=== PATIENT | male | born 1955 | race Caucasian/White ===

== ENCOUNTER → 2016-07-30 | Outpatient (CLI) | payer BC ==
--- NOTE | 2016-07-30 14:14 | DIAGNOSTIC IMAGING REPORT ---
LEFT HIP 2 VIEWS CLINICAL HISTORY: Progressive left hip pain. FINDINGS: AP and frog-leg views of the left hip are compared to KUB dated 08/18/2010. The skeletal structures are well mineralized. No fracture is seen in the left hip or the imaged left hemipelvis. There is only mild degenerative joint space narrowing in the left hip. No significant bony sclerosis or subchondral cyst formation is seen. The overlying soft tissues are within normal limits. IMPRESSION: Minimal degenerative change is identified. No acute bony abnormality is seen involving the left hip. Electronically signed by: Eitan Loomis M.D. 07/30/2016 2:13 PM
--- NOTE | 2016-07-30 14:56 | DIAGNOSTIC IMAGING REPORT ---
LUMBAR SPINE 5 VIEWS CLINICAL HISTORY: Left leg pain. No reported history of trauma. FINDINGS: Five views of the lumbar spine are correlated with abdominal CT dated 09/07/2010. The skeletal structures appear well mineralized. There is no radiographic evidence of fracture or malalignment involving the lumbar spine. Vertebral body height is maintained. There is minimal retrolisthesis of L2-L3. Alignment is otherwise preserved. Anterior osteophytes are seen throughout. The transverse and spinous processes appear intact. There is no evidence of spondylolysis. Moderate to advanced facet arthropathy is seen in the mid to lower lumbar spine. There is advanced degenerative disc space narrowing at L5-S1 with associated bony sclerosis. There is moderate narrowing at L2-L3 with associated endplate sclerosis. Moderate narrowing is also seen at L4-L5. Only mild narrowing is seen at the remaining lumbar levels. Degenerative endplate sclerosis with disc space narrowing is also seen at T12-L1. Posterior disc osteophyte complexes are noted at L2-L3, L4-L5, and L5-S1. These may contribute to acquired compromise of the central canal. The visualized bony pelvis appears intact. Calcified phleboliths are noted in the pelvis. There is a nonobstructed abdominal bowel gas pattern noting moderate colonic fecal retention. IMPRESSION: 1. No acute bony abnormality is seen involving the lumbar spine. 2. Moderate lumbosacral spondylosis as detailed above. Dictated: 07/30/2016 2:13 PM Transcribed: 07/30/2016 2:55 PM [place] Electronically signed by: Eitan Loomis M.D. 07/30/2016 3:13 PM
== END | disposition home or self-care (01) ==
LOC: C.RDSM 13:09
PROVIDERS: ATTEND Family Medicine
DX: M25.552 Pain in left hip (principal)

== ENCOUNTER → 2017-04-19 | Outpatient (CLI) | payer BC ==
--- NOTE | 2017-04-19 15:32 | DIAGNOSTIC IMAGING REPORT ---
CT SINUSES WITH BRAIN LAB CT DOSE: 548.46 mGy.cm CLINICAL HISTORY: CHRONIC SINUSITIS,YUDY TECHNIQUE: Helical images were acquired in the transverse plane. Sagittal and coronal reformatted images were reviewed. A dose lowering technique was utilized adhering to the principles of ALARA. COMPARISON STUDY: None. FINDINGS: No orbital lesions are visualized. There is no hydrocephalus. The visualized portions of the mastoid air cells appear symmetrically aerated. The middle ears cavities appear symmetrically aerated. There is trace mucosal thickening within the base of the left maxillary sinus. There is an 18 mm retention cyst within the right maxillary sinus. There is trace mucosal thickening within the right frontal sinus posteriorly. The ostiomeatal units are patent bilaterally. There is a small bony defect involving the medial wall the left maxilla sinus. Please correlate with any history of prior surgery. There is nasal septal deviation to the left. The ethmoidal notches are protected bilaterally. The olfactory grooves measure 4 mm in depth. The frontoethmoidal recesses are patent bilaterally IMPRESSION: 1. No evidence of acute sinusitis 2. 18 mm right maxilla sinus retention cyst 3. The ostiomeatal units appear patent bilaterally. There is a bony defect involving the medial wall the left maxillary antrum. Please correlate with any history of prior surgery. Electronically signed by: Vitor Bradford M.D. 04/19/2017 3:31 PM Dictated Date/Time: 04/19/2017 3:27 PM
== END | disposition home or self-care (01) ==
LOC: C.CTS 15:10
PROVIDERS: ATTEND Otolaryngology
DX: J32.9 Chronic sinusitis, unspecified (principal); G47.33 Obstructive sleep apnea (adult) (pediatric); J34.1 Cyst and mucocele of nose and nasal sinus

== ENCOUNTER → 2017-05-20 | Outpatient (CLI) | payer BC ==
[2017-05-20 12:46] LABS: ESTIMATED AVERAGE GLUCOSE 252 mg/dl; HA1C FLAG Normal (Normal)
[2017-05-20 12:59] LABS: ALT/SGPT 60 U/L (12-78); AST/SGOT 57 U/L (15-37); BLOOD UREA NITROGEN 14 mg/dl (7-18); BUN/CREATININE RATIO 12.9 (10-20); CALCIUM 8.6 mg/dl (8.5-10.1); CARBON DIOXIDE 25 mmol/L (21-32); CHLORIDE 103 mmol/L (98-107); CREATININE 1.07 mg/dl (0.60-1.40); GLUCOSE 328 mg/dl (70-99); POTASSIUM 3.7 mmol/L (3.5-5.1); SODIUM 137 mmol/L (136-145)
[2017-05-20 13:06] LABS: ALB/GLOB RATIO 1.2 (0.9-2); ALKALINE PHOSPHATASE 100 U/L (45-117); CHOLESTEROL 114 mg/dl (0-200); CHOLESTEROL/HDL RATIO 3.7; HDL CHOLESTEROL 31 mg/dl; TRIGLYCERIDES 404 mg/dl (0-150)
[2017-05-20 13:13] LABS: BETA-HYDROXYBUTYRATE 3.16 mg/dL (0.2-2.81)
[2017-05-20 14:16] LABS: RATIO 9.3 mcg/mg (0-30.0)
== END | disposition home or self-care (01) ==
LOC: C.LABPBG 10:16
PROVIDERS: ATTEND Nurse Practitioner Adult Health
DX: E11.65 Type 2 diabetes mellitus with hyperglycemia (principal)

== ENCOUNTER 2018-11-25 08:17 | Inpatient (IN) ==
--- NOTE | 2018-10-29 08:52 | Anesthesiology Consultation ---
Date of Service October 29, 2018 Assessment & Plan (1) Encounter for pre-operative examination: Check K+ AM DOS (3.2 on pre-op labs) Chart Review Chart Review: Acceptable Risk for Surgery and Patient seen in Pre Admission Testing Teaching & Discussion Instructed NPO after midnight before surgery, except medications with 15 cc of water. Medication instructions provided according to the PAT guidelines. History Surgery Operation Date: 11/25/18 07:00 Proposed Procedures p Right Total Knee Replacement - Skip Jackson MD Height/Weight Height: 5 ft 8 in Weight: 122.4 kg Allergies Allergy/AdvReac Type Severity Reaction Status Date / Time Sulfa (Sulfonamide Allergy Unknown ACHY AND Verified 10/20/18 08:19 Antibiotics) COLD SYMPTOMS Medications Home Medications Medication Instructions Recorded Confirmed Last Taken amlodipine 5 mg PO HS 10/20/18 10/20/18 10/19/18 aspirin [Aspir-81] 81 mg PO DAILY 10/20/18 10/20/18 Unknown atorvastatin 80 mg PO PM 10/20/18 10/20/18 10/19/18 cholecalciferol (vitamin D3) 1 - 2 cap PO DAILY 10/20/18 10/20/18 Unknown [Vitamin D3] coenzyme Q10 [CoQ-10] 200 mg PO HS 10/20/18 10/20/18 10/19/18 escitalopram oxalate 10 mg PO QAM 10/20/18 10/20/18 10/20/18 insulin aspart U-100 [Novolog 1 dose SUBCUT TID 10/20/18 10/20/18 Unknown Flexpen U-100 Insulin] insulin glargine U-300 conc 70 unit SUBCUT BID 10/20/18 10/20/18 10/20/18 [Toujeo SoloStar U-300 Insulin] krill oil 1 cap PO BID 10/20/18 10/20/18 10/20/18 metformin 1,000 mg PO BID 10/20/18 10/20/18 10/20/18 naproxen sodium [Aleve] 1 cap PO BID 10/20/18 10/20/18 Unknown olmesartan-hydrochlorothiazide 1 tab PO QAM 10/20/18 10/20/18 10/20/18 pantoprazole 20 mg PO QAM 10/20/18 10/20/18 10/20/18 propranolol 60 mg PO HS 10/20/18 10/20/18 10/19/18 vitamin B complex [B-Complex] 1 tab PO DAILY 10/20/18 10/20/18 Unknown Past Medical History Medical History Diabetes A1C 9.9% Essential tremor History of anxiety History of kidney stones X1 IN HX Hyperlipidemia Hypertension Sleep apnea CPAP Past Family History Family History Other Family history of colon cancer in father Past Surgical History Surgical History History of colonoscopy History of lithotripsy History of lumbar discectomy X3 Past Anesthesia History No Hx of Anesthesia Complications and No Family Hx of Anesthesia Complications History of PONV No Motion Sickness Screening History of Motion Sickness: No Social History Smoking Status: Former smoker tobacco type: cigarettes Do You Dip or Chew Tobacco: No Smoking End Date: QUIT 40 YRS AGO Hx Alcohol Use: Yes Alcohol type: beer alcohol intake frequency: holidays/special occasions only Hx Substance Use: No substance use type: does not use Exercise / Class Metabolic Activity II 4-5 Yardwork/Stairs/Walk up hill (denies CP or SOB with stairs) Review of Systems Pt denies any recent chest pain, shortness of breath, palpitations, cough, fever or URI. Physical Exam Vital Signs BP: 136/75 P: 70bpm SPO2: 95% RA T: 98.6 F R: 16 ENMT Mouth: + dentures (partial upper) and + small oral opening; no chipped teeth and no loose teeth Thyromental Distance: > or= 3.5 Finger Breadths (4) Mallampati Class: IV Neck + short neck and + thick neck; neck extension not limited Respiratory normal respiratory effort Auscultation: lungs clear to auscultation bilaterally Cardiovascular Rate/Rhythm: regular rate and regular rhythm Heart Sounds: no murmur Vessels: no carotid bruit Extremities: no edema Testing Electrocardiogram Date: 10/29/18 Findings: + NSR @ (66) Nonspecific TWA. Chest X-Ray Date: 10/29/18 Findings: + NAD Laboratory Results 10/29/18 09:16 10/29/18 09:16 Blood Type O Positive 10/29/18 09:16 Antibody Screen NEGATIVE 10/29/18 09:16 PT 11.4 Seconds (9.0-12.0) 10/29/18 09:16 INR 1.1 (0.9-1.1) 10/29/18 09:16 APTT 25.1 Seconds (21.0-31.0) 10/29/18 09:16 Hemoglobin A1c 9.9 % (4.5-5.6) H 10/29/18 09:16 *Surgeon made aware of elevated A1C
--- NOTE | 2018-10-29 08:54 | PAT Medication Instructions ---
Medication Instructions Date of Service October 29, 2018 Home Medications amlodipine 5 mg PO HS aspirin [Aspir-81] 81 mg PO DAILY atorvastatin 80 mg PO PM cholecalciferol (vitamin D3) 1 - 2 cap PO DAILY coenzyme Q10 [CoQ-10] 200 mg PO HS escitalopram oxalate 10 mg PO QAM insulin aspart U-100 [Novolog] 1 dose SUBCUT TID insulin glargine [Toujeo SoloStar U-300 Insulin] 70 unit SUBCUT BID krill oil 1 cap PO BID metformin 1,000 mg PO BID naproxen sodium [Aleve] 1 cap PO BID olmesartan-hydrochlorothiazide 1 tab PO QAM pantoprazole 20 mg PO QAM propranolol 60 mg PO HS vitamin B complex [B-Complex] 1 tab PO DAILY ASK your surgeon for instructions naproxen sodium [Aleve] 1 cap PO BID STOP taking 2 weeks before surgery coenzyme Q10 [CoQ-10] 200 mg PO HS krill oil 1 cap PO BID DO NOT take the morning of surgery cholecalciferol (vitamin D3) 1 - 2 cap PO DAILY insulin aspart U-100 [Novolog] 1 dose SUBCUT TID metformin 1,000 mg PO BID olmesartan-hydrochlorothiazide 1 tab PO QAM vitamin B complex [B-Complex] 1 tab PO DAILY Take morning of surgery With a small sip of water, OTHERWISE NOTHING TO EAT OR DRINK AFTER MIDNIGHT: escitalopram oxalate 10 mg PO QAM pantoprazole 20 mg PO QAM Take evening before surgery aspirin [Aspir-81] 81 mg PO DAILY amlodipine 5 mg PO HS atorvastatin 80 mg PO PM insulin aspart U-100 [Novolog] 1 dose SUBCUT TID insulin glargine [Toujeo SoloStar U-300 Insulin] 70 unit SUBCUT BID metformin 1,000 mg PO BID propranolol 60 mg PO HS Insulin Dependent Diabetic Patients * Test your blood sugar the morning of surgery * If Blood Sugar is GREATER THAN 150, take HALF of your regular dose of: insulin glargine [Toujeo SoloStar U-300 Insulin] -- TAKE 35 UNITS * If Blood Sugar is LESS THAN 150, DO NOT TAKE ANY: insulin glargine [Toujeo SoloStar U-300 Insulin] Other Notes If you have any questions please call us at [phone] or [phone] or [phone] or [phone]
--- NOTE | 2018-10-29 09:55 | XRay Report ---
TWO VIEW CHEST CLINICAL HISTORY: Preoperative examination. FINDINGS: PA and lateral chest radiographs are compared to study dated 01/01/2006 and correlated with c hest CT dated 02/02/2014. The cardiomediastinal silhouette is unremarkable. The lungs and pleural spac es are clear. There is no pneumothorax. The bony thorax appears intact. IMPRESSION: No active disease in the chest. Electronically signed by: Eitan Loomis M.D. 10/29/2018 9:53 AM
[2018-10-29 10:29] LABS: Basophils # (auto) 0.03 K/uL (0-0.2); Basophils % (auto) 0.5 %; Eosinophils # (auto) 0.12 K/uL (0-0.5); Eosinophils % (auto) 2.1 %; Hemoglobin 13.5 g/dL (14.0-18.0); Immature Granulocytes # (auto) 0.01 K/uL (0.00-0.02); Immature Granulocytes % (auto) 0.2 %; Mean Corpuscular Hgb Conc 33.8 g/dL (32-36); Mean Corpuscular Volume 80.2 fL (80-100); Monocytes # (auto) 0.25 K/uL (0.11-0.59); Monocytes % (auto) 4.3 %; Neutrophils # (auto) 3.18 K/uL (1.4-6.5); Neutrophils % (auto) 54.9 %; Platelet Count 189 K/uL (130-400); RDW Coefficient of Variation 14.7 % (11.5-14.5); RDW Standard Deviation 42.6 fL (36.4-46.3); Red Blood Count 4.99 M/uL (4.7-6.1); White Blood Count 5.79 K/uL (4.8-10.8)
[2018-10-29 10:40] LABS: INR 1.1 (0.9-1.1); Partial Thromboplastin Ratio 0.9; Partial Thromboplastin Time 25.1 Seconds (21.0-31.0); Prothrombin Time 11.4 Seconds (9.0-12.0)
[2018-10-29 10:43] LABS: BUN Creatinine Ratio 14.9 (10-20); Calcium 8.8 mg/dl (8.5-10.1); Creatinine Clr Calc Pharmacy 111.8 ml/min; Est GFR (African American) 106.7; Est GFR (Non-African American) 92.1; Potassium 3.2 mmol/L (3.5-5.1)
[2018-10-29 10:52] LABS: Estimated Average Glucose 237 mg/dl; Hemoglobin A1C 9.9 % (4.5-5.6)
--- NOTE | 2018-11-22 10:30 | History and Physical Report ---
DATE OF ADMISSION: 11/25/2018 CHIEF COMPLAINT: Bilateral knee pain, right side greater than left. HISTORY OF PRESENT ILLNESS: A 63-year-old gentleman who I have been following for the past year for bilateral knee pain, DJD. He has been a patient of Dr. Morel in the past and had multiple injections over the years. It has become less successful over the past year. The right knee bothers him more than the left. He takes anti-inflammatories with minimal relief. The shots only helped him for a couple days to a week or so recently. He has become more debilitated by his pain. He has a limited walking tolerance of a couple blocks. He has difficulty going up and down stairs. Knees hurt all the time. The more he walks, the more he hurts and limps. He would like to proceed with surgical treatment. PAST MEDICAL HISTORY: 1. Diabetes x15 years, currently under medical optimization for his diabetes. 2. Hypertension. 3. Elevated cholesterol. 4. Sleep apnea with CPAP machine. 5. Obesity with a BMI of 41. 6. Low back pain. 7. Kidney stones. PAST SURGICAL HISTORY: Previous surgeries include lumbar discectomy x3. ALLERGIES: SULFA. CURRENT MEDICINES: Include: 1. Atorvastatin. 2. Escitalopram. 3. Losartan. 4. Metformin. 5. Victoza. 6. NovoLog insulin. 7. Buspirone. 8. Toujeo. SOCIAL HISTORY: A 63-year-old male. He is . Two children. Rare alcohol intake. No tobacco or drug use. FAMILY HISTORY: Noncontributory. REVIEW OF SYSTEMS: Significant for diabetes which has been pretty poorly controlled. He is currently trying to get this under better control with his medical doctor. Denies any chest pain or shortness of breath. No history of DVT or PE. PHYSICAL EXAMINATION: GENERAL: Reveals a pleasant, fairly large middle-aged male. Looks to be in pretty good health. HEENT: Benign. NECK: Supple. No lymphadenopathy. LUNGS: Clear to auscultation. HEART: Has a regular rate and rhythm. ABDOMEN: Soft, nontender, nondistended. EXTREMITIES: Grossly neurovascularly intact except as follows: Examination of both knees reveals the patient ambulates independently. He has got varus alignment to both knees. He has got moderate sized knee joint effusions. Range of motion is pretty symmetric on both sides with about 5-10 degrees short of full extension to 120 degrees of flexion. He has got no instability. No pain with hip motion on either side. X-RAYS: X-rays of both knees were reviewed. It shows advanced bilateral knee DJD. X-rays of the right knee reveal complete loss of his medial joint space. He has got tibial femoral subluxation. He has got tricompartment disease with significant patellofemoral disease as well as patellofemoral maltracking. ASSESSMENT: A 63-year-old male diabetic with bilateral knee degenerative joint disease, unresponsive to conservative care. The right knee is bothered more than the left. He would like to proceed with knee replacement. He is diabetic and currently trying to get his diabetes under better control. PLAN: We are going to proceed with right knee replacement. The risks and benefits of this procedure were explained to the patient including but not limited to DVT, PE, , infection, neurological injury, vascular injury, bleeding problem, pain, limited range of motion, stiffness, failure to relieve symptoms, incomplete relief of symptoms, need for further surgery in future, fracture, leg length inequality, nerve palsy, etc. The patient understands and desires to proceed. Informed consent was obtained. He is made aware that with his diabetes, he is at slightly increased risk of infection. As far as discharge plans, he is planning to be discharged to home using the home health program. He knows to hold his metformin the morning of surgery and to bring his CPAP machine to the hospital.
[~2018-11-25 08:17] MED LIST: ACETAMINOPHEN 500 MG TAB PO SCH; BUPIVACAINE 0.5 % 5 MG/1 ML PF 10ML VIAL ONE; BUPIVACAINE LIPOSOME/PF 266 MG, BUPIVACAINE/EPINEPHRINE 50 ML, SODIUM CHLORIDE 0.9% 30 ... INFIL SCH; CEFAZOLIN 3000MG 65 ML IV SCH; GABAPENTIN 300 MG x 2 PO SCH; LR 500ML BOLUS, THEN 15ML/HR IV SCH; LR 60ML/HR IV SCH; METOCLOPRAMIDE HCL 10 MG TABLET PO SCH; ROPIVACAINE 0.5% 5 MG/ML 30 ML VIAL ONE; SCOPOLAMINE 1.5 MG TDSY TD SCH; TRANEXAMIC ACID 1,000 MG **IV Intra-op IV SCH
--- OUTSIDE RECORDS SUMMARY | 2018-11-25 08:20 | External Medical Summary | Continuity of Care Document ---
:1955 Author Name Razia Gonzales, Provider Address Unavailable Unavailable , Care Team Providers Name Role Phone Silverio Minda SILVA Unavailable [email or web address] [email or web address] Saleh M.D. Unavailable [email or web address] Suman IYER Unavailable Unavailable Unavailable Unavailable Unavailable Problems Vocal cord paralysis (478.30) (J38.00) Laryngopharyngeal reflux (478.79) (K21.9) Laryngospasm (478.75) (J38.5) Dry nose (478.19) (J34.89) Epistaxis (784.7) (R04.0) Elevated transaminase level (790.4) (R74.0) Knee pain (719.46) (M25.569) Hypertrophy of nasal turbinates (478.0) (J34.3) Depression (311) (F32.9) Dyslipidemia (272.4) (E78.5) Essential hypertension (401.9) (I10) Obesity, morbid, BMI 40.0-49.9 (278.01) (E66.01) Uncontrolled type 2 diabetes mellitus, w ith long-term current use of insulin (250.02) (E11.65) Low back pain (724.2) (M54.5) Acquired deviated nasal septum (470) (J34.2) 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 Refills: 0 Olmesartan Medoxomil-HCTZ 40-25 MG Oral Tablet; TAKE 1 TABLET DAILY. SilverioRICARDO Quantity: 90 Refills: 3 metFORMIN HCl - 1000 MG Oral Tablet; Take 1 tablet twice isabela ly Refills: 0 CoQ-10 CAPS; TAKE 1 CAPSULE DAILY WITH A MEAL. Refills: 0 Aspirin 81 MG TABS; Take 1 tablet daily Refills: 0 Victoza 18 MG/3ML Subcutaneous Solution Pen-injector; Inject 1.8 mg/day SilverioRICARDO Start: 04-Jan-2014 Quantity: 1 3 x 3 ML Pen Refills: 11 Vitamin B-12 1000 MCG Oral Tablet; TAKE 1 TABLET DAILY DIRECTED. RICARDO Sawyer Start: 04-Jan-2014 Quantity: 30 Refills: 5 Vitamin D 1000 UNIT Oral Tablet; take 10 00 IU in the summer and 2000 IU in the winter RICARDO Sawyer Start: 08-Feb-2014 Quantity: 1 Refills: 0 Renaldo Microlet Lancets; Test 4 times daily SilverioRICARDO Start: 15-Mar-2014 Quantity: 4 100 Miscellaneous Pa ckage Refills: 3 UltiCare Micro Pen Tea 32G X 4 MM; use 4 daily wit h insulin injections RICARDO Sawyer Start: 24-Jan-2015 Quantity: 4 90 Unit Box Refills: 3 NovoLOG FlexPen 100 UNIT/ML Subcutaneous Solution Pen-injector; Inject 20 units prior to breakfast and lunch, and 30 units at supper RICARDO Sawyer Start: 22-Mar-2015 Quantity: 5 5 x 3 ML Pen Refills: 1 Omeprazole 20 MG Oral Capsule Delayed Release; TAKE 1 CAPSUL E Daily Refills: 1 OneTouch Delica Lancets Fine; use 4 daily SilverioRICARDO maddox Start: 24-Nov-2018 Quantity: 4 100 Unit Box Refills: 3 Toujeo Max SoloStar 300 UNIT/ML Subcutan eous Solution Pen-injector; INJECT 74 UNITS TWICE A DAY RICARDO Sawyer Start: 01-Jul-2018 Quantity: 8 2 x 3 ML Pen Refills: 3 Gabapentin 100 MG Oral Capsule; TAKE 2 CAPSULE 3 times daily Janet Dillon Start: 11-Apr-2017 Quantity: 180 Refills: 5 amLODIPine Besylate 5 MG Oral Tablet; TAKE 1 TABLET DAILY. Refills: 0 Propranolol HCl ER 60 MG Oral Capsule Ex tended Release 24 Hour; TAKE 1 CAPSULE Bedtime Janet Dillon Start: 21-Apr-2018 Quantity: 30 Refills: 5 OneTouch Verio In Vitro Strip; Test 4 times daily Latrell Sawyer Start: 02-Mar-2016 Quantity: 4 100 Strip Box Refills: 3 [place]-3 Krill Oil 500 MG Oral Capsule; TAKE 2 CAPSULE Daily Refills: 0 Procedures History of Renal Lithotripsy Status: Com pleted History of Total Disc Arthroplasty Statu s: Completed Immunizations Pneumococcal polysaccharide vaccine, 23 valent On: 2003 Influenza On: 19-Apr-2011 Influenza On: 13-Jun-2012 9:27 Lot #: [id number], [employer] Influenza On: May-2013 Influenza On: 29-May-2015 Family History Father Family history of Colon Cancer (V16.0) Status: Active Mother Family history of Diabetes Mellitus (V18.0) Status: Active Family history of Macular Degeneration Status: Active Social History - Smoking Status Former smoker Plan of Treatment Planned Encounters Appointment; Minda Sawyer CRNP Start: 13-Jan-2019 11:30 R equest Planned Observations Planned Goals not documented Results No Known Results Results not documented Encounters Appointment; Titi Dillon M.D. 20-Oct-2018 13:00 Encounter Diagnosis: Problem not documented Appointment; Titi Dillon M.D. 21-Apr-2018 10:15 Encounter Diagnosis: Problem not documented Appointment; Trinh Knight R.D. 24-Oct-2017 8:00 Encounter Diagnosis: Problem not documented Appointment; Trinh Knight R.D. 10-Oct-2017 12:30 Encounter Diagnosis: Problem not documented Appointment; Minda Sawyer CRNP 24-Sep-2017 10:30 Encounter Diagnosis: Problem not documented Appointment; Trinh Knight R.D. 15-Jul-2017 8:00 Encounter Diagnosis: Problem not documented Appointment; Titi Dillon M.D. 04-Jul-2017 10:00 Encounter Diagnosis: Problem not documented Appointment; Trinh Knight R.D. 06-Jun-2017 13:00 Encounter Diagnosis: Problem not documented Appointment; Minda Sawyer CRNP 28-May-2017 12:00 Encounter Diagnosis: Problem not documented Appointment; Titi Dillon M.D. 27-Mar-2017 13:00 Encounter Diagnosis: Problem not documented Appointment; Lavelle Adamson M.D. 11-Mar-2017 10:20 Encounter Diagnosis: Problem not documented Appointment; Curtis Valerio Au.D.|CCC-A 11-Mar-2017 10:00 Encounter Diagnosis: Problem not documented Appointment; Minda Sawyer CRNP 13-Jan-2019 11:30 Encounter Diagnosis: Problem not documented"
--- NOTE | 2018-11-25 09:06 | History & Physical Bridge Note ---
Date of Service November 25, 2018 History & Physical Bridge Note I have examined the patient, reviewed the History & Physical and in the interval since the performance of the History & Physical I have noted the following changes of clinical significance: no changes noted
[2018-11-25] MEDS ORDERED: ATROPINE SULFATE 0.1 MG/ML 10ML SYR IV PRN (09:21)
[2018-11-25] MEDS ORDERED: fentaNYL citrate 100 MCG/2 ML VIAL IV PRN (09:21)
[2018-11-25] MEDS ORDERED: ePHEDrine sulfate 50 MG/ML AMP IV PRN (09:21)
[2018-11-25] MEDS ORDERED: ONDANSETRON INJ 2 MG/ML 2 ML VIAL IV PRN ×2 (09:21→14:15)
[2018-11-25] MEDS ORDERED: MIDAZOLAM HCL 1 MG/ML 2ML VIAL ONE (10:21)
[2018-11-25] MEDS ORDERED: fentaNYL citrate 100 MCG/2 ML VIAL ONE (10:21)
[2018-11-25] MEDS ORDERED: LIDOCAINE HCL 2% 2 ML VIAL/AMP(20MG/ML) INFIL ONE (10:22)
[2018-11-25] MEDS ORDERED: PROPOFOL IV EMULSION 10 MG/ML 20 ML VIAL IV ONE (10:22)
[2018-11-25 10:30] LABS: BUN Creatinine Ratio 15.2 (10-20); Calcium 8.7 mg/dl (8.5-10.1); Creatinine Clr Calc Pharmacy 98.1 ml/min; Est GFR (African American) 97.7; Est GFR (Non-African American) 84.3; Potassium 3.7 mmol/L (3.5-5.1)
[2018-11-25] MEDS ORDERED: SODIUM CHLORIDE 0.9% PF 50 ML VIAL ONE (10:52)
[2018-11-25] MEDS ORDERED: BUPIVACAINE 0.25% 30 ML VIAL ONE (10:53)
[2018-11-25] MEDS ORDERED: BACITRACIN INJ 50,000 UNIT VIAL ONE (10:53)
[2018-11-25] MEDS ORDERED: BUPIVACAINE LIPOSOME 1.3% 266 MG/20 ML VIAL ONE (10:53)
[2018-11-25] MEDS ORDERED: EPINEPHrine INJ 1 MG/ML AMP ONE (10:53)
--- NOTE | 2018-11-25 12:57 | Post Operative Brief Note ---
Immediate Post Op Note v1 Date of Surgery November 25, 2018 Pre & Post Diagnosis Operation Date: 11/25/18 10:40 Pre-Op Diagnosis: Right Knee Advanced Degenerative Joint Disease Post-Op Diagnosis: Right Knee Advanced Degenerative Joint Disease Procedure Operation Date: 11/25/18 10:40 Actual Procedures p Right Total Knee Arthroplasty(Right) - Skip Jackson MD Surgeon Skip Jackson MD Inventory Specialist Dorian, PAC Estimated Blood Loss 50 Findings Consistent with Post-Op Diagnosis Fluids 1400 cc Specimens Right Knee Drains Thomas Catheter (A 15 Citizen [place] thomas catheter was inserted by SACHIN Cox, without difficulty, clear yellow urine obtained, output to be monitored by Anesthesia.) Anesthesia Type Spinal MAC Complications none Disposition Accompanied Patient To Recovery: No Disposition: Recovery Room
--- NOTE | 2018-11-25 13:16 | XRay Report ---
RIGHT KNEE 2 VIEWS History: Right total knee arthroplasty. Degenerative arthritis. Postop. FINDINGS: The patient is status post a right total knee arthroplasty. The hardware is intact. No frac ture or dislocation. Skin yaz and surgical drains are in place. IMPRESSION: Right total knee arthroplasty. No evidence for hardware complication. Electronically signed by: Peña Samayoa M.D. 11/25/2018 1:15 PM
--- NOTE | 2018-11-25 13:52 | Anesthesiology Progress Note ---
Date of Service November 25, 2018 Anesthesia Post Procedure Vital Signs Vital Signs: Temp Pulse Pulse Resp BP Pulse Ox 11/25/18 13:40 61 20 134/67 97 11/25/18 13:30 62 19 129/69 97 11/25/18 13:20 63 19 137/66 98 11/25/18 13:10 67 19 131/67 100 11/25/18 13:01 36.6 C 63 16 140/64 98 11/25/18 09:10 36.9 C 64 20 135/77 96 Pain Intensity Right Knee: Pain Intensity: 0 Left Knee: Pain Intensity: 8 Transfer of Care Handoff Completed per policy Notes Mental Status: alert / awake / arousable Patient Amnestic to Procedure: Yes Nausea / Vomiting: adequately controlled Pain: adequately controlled Airway Patency, RR, SpO2: stable & adequate BP & HR: stable & adequate Hydration State: stable & adequate Neuraxial Anesthesia: was administered and sensory block is resolving Anesthetic Complications: no major complications apparent and Pt Satisfied with anesthetic care
[2018-11-25] MEDS ORDERED: GLUCOSE 40% GEL 15 GM TUBE PO PRN (14:15)
[2018-11-25] MEDS ORDERED: NALOXONE HCL 0.4 MG/1 ML VIAL/CARP IV PRN (14:15)
[2018-11-25] MEDS ORDERED: CARBOHYDRATES FOR HYPOGLYCEMIA PO PRN (14:15)
[2018-11-25] MEDS ORDERED: METOCLOPRAMIDE HCL INJ 5 MG/ML 2 ML VIAL IV PRN (14:15)
[2018-11-25] MEDS ORDERED: ALUMINUM/MAGNESIUM SUSP 30 ML UDC PO PRN (14:15)
[2018-11-25] MEDS ORDERED: GLUCAGON FOR INJ 1 MG VIAL SQ PRN (14:15)
[2018-11-25] MEDS ORDERED: BISACODYL 10 MG SUPP PR PRN (14:15)
[2018-11-25] MEDS ORDERED: TAMSULOSIN HCL 0.4 MG CAP PO PRN (14:15)
[2018-11-25] MEDS ORDERED: PHARMACY GLYCEMIC MGMT CONSULT STA (14:15)
[2018-11-25] MEDS ORDERED: INSULIN ASPART 100 UNITS/ML 3 ML PEN SQ SCH (14:15)
[2018-11-25] MEDS ORDERED: HYDROmorphone INJ 0.5 MG/0.5 ML SYR IV PRN (14:15)
[2018-11-25] MEDS ORDERED: MAGNESIUM HYDROXIDE SUSP 30 ML UDC PO PRN (14:15)
[2018-11-25] MEDS ORDERED: DEXTROSE 50% 50 ML SYRINGE IV PRN (14:15)
[2018-11-25] MEDS ORDERED: GLUCOSE 10 TABS/TUBE PO PRN (14:15)
[2018-11-25] MEDS ORDERED: PHARMACY GLYCEMIC MGMT CONSULT PRN (15:01)
[2018-11-25] MEDS: SODIUM CHLORIDE 0.9% 1000ML 1,000 ML IV SCH (15:10)
[2018-11-25] MEDS: ACETAMINOPHEN 500 MG TAB PO SCH ×2 (15:10→22:14)
[2018-11-25] MEDS ORDERED: INSULIN GLARGINE SOLOSTAR 100 UNITS/ML 3 ML PEN SC ONE (15:15)
--- NOTE | 2018-11-25 15:31 | Pharmacy Report ---
Pharmacy Glycemic Short Note 2 - Date of Service November 25, 2018 - Glycemic Short BSG Results (Last 24 hours): 11/25/18 11/25/18 11/25/18 08:32 08:52 14:35 Glucose 192 H POC Glucose 191 H 143 H OUTPATIENT ANTIDIABETIC REGIMEN: * Toujeo u-300 70 units BID * Metformin 1000mg BID * Novolog 20 units TID + scale HbA1c: 9.9% on 10/29/18 ASSESSMENT: * Patient with reasonable post op BSG of 143 mg/dL. I confirmed with patient that the last dose of toujeo and metformin he took was last evening. It does not appear the patient was given any steroids in the OR. Given this, and good post op BSG, will order a one time lantus dose now at 80% of the patient's home dose (for toujeo conversion) and a scale for this evening. I will used a weight based stress of 2 for novolog coverage. The patient is ordered a diet. PLAN FOR INPATIENT GLYCEMIC CONTROL: * Hold outpatient oral diabetes medications * Basal insulin * Lantus 56 units SQ X 1 (~1515) * Lantus scale this evening (2300): 55 units if BSG 150 mg/dL or less; 70 units if BSG > 150 mg/dL * Bolus insulin * NovoLog per scale ACHS or Q6hrs while NPO * Goal Range: Low 110 mg/dL - High 140 mg/dL * Correction Factor: 20 mg/dL/unit * Nutritional / Prandial insulin per carb ratio of 1 unit per 7 grams CHO consumed PLAN FOR DISCHARGE: * Pending
[2018-11-25] MEDS: CHECK SCOPOLAMINE PATCH PLACEMENT SCH (15:32)
--- NOTE | 2018-11-25 15:42 | Progress Note ---
DATE: 11/25/2018 SUBJECTIVE: A 63-year-old gentleman postop from a right knee replacement. He is doing well. Cannot feel his legs yet. Denies any chest pain or shortness of breath. Not feeling dizzy or lightheaded. OBJECTIVE: VITAL SIGNS: Temperature is 36.8. Vital signs stable. GENERAL: Physical examination shows a pleasant, middle-aged male. He is sitting up in his bed and talking to his spouse. He looks quite comfortable. LUNGS: Clear to auscultation. HEART: Has regular rate and rhythm. ABDOMEN: Soft, nontender, nondistended. EXTREMITIES: Grossly neurovascularly intact except as follows: Examination of both lower extremities reveals the legs to be well aligned. His dressing is clean, dry, and intact. He has no significant sensory or motor function yet. He does have brisk refill with good distal pulse. X-RAYS: X-ray of the right knee from recovery room reviewed. It shows right cemented posterior stabilized total knee arthroplasty. The film is fairly rotated on both the AP and lateral films. No obvious signs of problems. ASSESSMENT: A 63-year-old gentleman postop from a right knee replacement, doing pretty well. His block is still in effect. PLAN: 1. DVT prophylaxis including thigh-high TEDs, SCDs, and aspirin twice a day. 2. PT/OT. Weight bear as tolerated. Right total knee protocol. 3. Pain control. Doing well with current pain regimen. We will obviously have to address and adjust the medicines as his spinal wears off. 4. IV antibiotics x24 hours. 5. Diabetes. Will use insulin sliding scale coverage in the hospital. 6. Disposition: He is planning to be discharged to home with some home health once adequately recovered.
--- NOTE | 2018-11-25 17:02 | Operative Report ---
DATE OF OPERATION: 11/25/2018 SURGEON: Skip Jackson MD PLANT CHANGER: SACHIN Viera PREOPERATIVE DIAGNOSIS: Right knee degenerative joint disease. POSTOPERATIVE DIAGNOSIS: Right knee degenerative joint disease. PROCEDURE PERFORMED: Right cemented posterior stabilized total knee arthroplasty. COMPLICATIONS: None. ESTIMATED BLOOD LOSS: 50 mL. FLUID REPLACEMENT: 1400 mL crystalloid fluid replacement. ANESTHESIA: Spinal with adductor canal block. DRAINS: None. SPECIMENS: Right knee sent for pathology. TOURNIQUET TIME: 64 minutes at 300 mmHg. OPERATIVE INDICATIONS: The patient is a 63-year-old gentleman who has had a long history of bilateral knee pain and discomfort, right side a bit worse than the left. He has been through extensive conservative treatment in the past. He continues to be debilitated by pain. X-rays showed bilateral knee degenerative joint disease, right side a bit worse than the left. He elected to proceed with total knee arthroplasty on the right side. OPERATIVE FINDINGS: Operative findings revealed extensive grade 4 [id number] disease in all 3 compartments, most severe in the medial and patellofemoral compartments. He had osteophytes in all 3 compartments with a large knee joint effusion. He had a 10-degree flexion contracture. OPERATIVE IMPLANTS: Operative implants consisted of: 1. A Biomet Vanguard size 70 right posterior stabilized femoral component. 2. A Biomet size 75 tibial tray. 3. A 10 mm posterior stabilized polyethylene insert. 4. A 34 x 8.5 all poly patella. OPERATIVE PROCEDURE: The patient was taken to the operating room, identified and placed on the operating table in supine position. All contact areas were appropriately padded. IV antibiotics were provided by anesthesia team. A spinal anesthetic and adductor canal block had been provided in the holding area. Mckeon catheter was placed in sterile fashion. A right thigh tourniquet was then placed and the right lower extremity was then prepped and draped in usual sterile fashion. The right leg was elevated and exsanguinated with Esmarch and tourniquet was placed at 300 mmHg. An anterior approach of the right knee was then performed through a longitudinal incision centered over the patella. Sharp dissection was carried through the subcutaneous tissue down to the level of the extensor mechanism. A medial parapatellar arthrotomy incision was made. Some subperiosteal dissection was carried out medially. The fat pad was resected from beneath the patellar tendon. The lateral patellofemoral ligament was released. The patella was everted and knee was flexed. The osteophytes were taken off the distal femur. The ACL and PCL were then released from the distal femur. The tibia subluxated anteriorly. The external tibial alignment jig was then placed in the anterior face of the tibia and adjusted 16 mm medially. Proximal tibial cut was made to remove about a millimeter or 2 of bone from the medial side. Some osteophytes were taken off medial and posteromedially. Tibia was sized to size 75. Attention was then drawn to the femur. The distal femur was entered with a sharp drill bit. Intramedullary canal was suctioned. A right 6-degree valgus cutting guide was placed. Distal femoral cutting block was pinned in place. Distal femoral cut was made to take an additional 3 mm of bone off the distal femur. Femur was then sized to a size 70. It was sized exactly to a size 70. The AP cutting block was pinned parallel to the epicondylar axis, which was 3 degrees of external rotation. The anterior cut, anterior chamfer, posterior cut, posterior chamfer cuts were made. Box cutting guide was placed and adjusted slightly lateral and the box cut was made. The knee was flexed. The remnants of medial and lateral menisci were excised. The osteophytes were taken off the posterior aspect of the femur. Trial femoral component was placed. Tibial tray was pinned in maximum external rotation and drill and stem punch were used to create defect in the proximal tibia for the tibial tray. The knee was then trialed and the 10 mm insert fit most appropriately. Attention was then drawn to the patella. The patella was cleaned of all soft tissues. Patella thickness measured 23 mm in thickness, it was cut down to 14. It was sized to a size 34 patella. Lug holes were drilled for a 34 patella. Lateral osteophyte was removed. Patella button was placed. Knee was taken through range of motion and the patella tracked nicely with no thumbs test. Attention was then drawn toward placing the permanent components. All trial components were removed. Bone plug was placed in the distal femur to limit blood loss. A double batch of Palacos G cement was mixed. A Biomet Vanguard size 70 right posterior stabilized femoral component, size 75 tibial tray, 10 mm posterior stabilized polyethylene insert, and a 34 x 8.5 all poly patella then cemented in place. Knee was brought down to full extension until cement hardened. A final cement check was then performed. Pericapsular tissues were injected with a total of 100 mL of combination of 20 mL of Exparel, 30 mL of normal saline, 50 mL of 0.25% Marcaine with epinephrine. The patient did receive 1 gram of tranexamic acid. The tourniquet was then let down for a final tourniquet time of 64 minutes. Hemostasis was assured with use of electrocautery. Extensor mechanism was then closed with a combination of #1 PDS suture and #1 Vicryl suture in [id number] fashion. Extensor mechanism was checked and found to be intact. The subcutaneous tissues were then closed with #2 Dexon suture in a buried interrupted fashion. Skin was closed with skin yaz. Leg was then cleaned and dried and a sterile dressing with Xeroform, 4 x 4, sterile cast padding and Allan bandage were applied. The patient then transferred to the recovery room in stable condition. The patient tolerated the procedure well with no complication. All needle and sponge counts were correct at the end of the operation. I attest to the content of the Intraoperative Record and any orders documented therein. Any exception s are noted below.
[2018-11-25] MEDS: FERROUS GLUCONATE 324 MG TAB PO SCH (18:03)
[2018-11-25] MEDS: KETOROLAC 30 MG/ML VIAL IV SCH (18:03)
[2018-11-25] MEDS: ASCORBIC ACID 500 MG TAB PO SCH (18:03)
[2018-11-25] MEDS: INSULIN ASPART 100 UNITS/ML 3 ML PEN SC SCH ×2 (18:10→21:37)
[2018-11-25] MEDS ORDERED: TRANEXAMIC ACID 1,000 MG in 0.9 % SODIUM CHLORIDE 100 ML IV SCH (19:00)
[2018-11-25] MEDS: CEFAZOLIN 2000MG 2,000 MG/15 ML SYR IV SCH (20:00)
[2018-11-25] MEDS ORDERED: INSULIN GLARGINE U U SQ SCH (21:00)
[2018-11-25] MEDS ORDERED: NON-FORMULARY MEDICATION (Coenzyme Q10 [Coq-10] 200 MG) PO SCH (21:00)
[2018-11-25] MEDS: OXYCODONE HCL IR 5 MG TAB (IMMEDIATE RELEASE) PO PRN (21:10)
[2018-11-25] MEDS: AMLODIPINE BESYLATE 5 MG TAB PO SCH (21:36)
[2018-11-25] MEDS: ASPIRIN 81 MG ECTAB PO SCH (21:36)
[2018-11-25] MEDS: DOCUSATE SODIUM 100 MG CAP PO SCH (21:36)
[2018-11-25] MEDS: PROPRANOLOL HCL 20 MG TAB PO SCH (21:36)
[2018-11-25] MEDS: TAPENTADOL HCL ER 50 MG TABCR PO SCH (21:37)
[2018-11-25] MEDS: ATORVASTATIN 40 MG TAB PO SCH (21:37)
[2018-11-25] MEDS: SENNA 8.6 MG TAB PO SCH (21:37)
[2018-11-25] MEDS ORDERED: INSULIN GLARGINE SOLOSTAR 100 UNITS/ML 3 ML PEN SC SCH (23:00)
[2018-11-26] MEDS: KETOROLAC 30 MG/ML VIAL IV SCH ×5 (00:26→23:35)
[2018-11-26] MEDS: CHECK SCOPOLAMINE PATCH PLACEMENT SCH (00:27)
[2018-11-26] MEDS ORDERED: INSULIN ASPART 100 UNITS/ML 3 ML PEN SC SCH (02:00)
[2018-11-26] MEDS: CEFAZOLIN 2000MG 2,000 MG/15 ML SYR IV SCH (04:55)
[2018-11-26 05:46] LABS: Hematocrit (blood only) 33.4 % (42-52); Hemoglobin 11.5 g/dL (14.0-18.0); Mean Corpuscular Hgb Conc 34.4 g/dL (32-36); Mean Corpuscular Volume 79.7 fL (80-100); Mean Platelet Volume 9.9 fL (7.4-10.4); Platelet Count 165 K/uL (130-400); RDW Coefficient of Variation 14.7 % (11.5-14.5); Red Blood Count 4.19 M/uL (4.7-6.1); White Blood Count 6.43 K/uL (4.8-10.8)
[2018-11-26] MEDS: ACETAMINOPHEN 500 MG TAB PO SCH ×3 (05:49→21:49)
[2018-11-26 06:16] LABS: Creatinine Clr Calc Pharmacy 94.1 ml/min; Est GFR (African American) 92.9; Est GFR (Non-African American) 80.2; Potassium 3.4 mmol/L (3.5-5.1)
[2018-11-26] MEDS ORDERED: POTASSIUM CHLORIDE 20 MEQ TABCR PO ONE ×2 (07:06→18:08)
[2018-11-26] MEDS: OXYCODONE HCL IR 5 MG TAB (IMMEDIATE RELEASE) PO PRN ×2 (08:00→12:00)
[2018-11-26] MEDS: FERROUS GLUCONATE 324 MG TAB PO SCH ×2 (08:32→17:49)
[2018-11-26] MEDS: ASPIRIN 81 MG ECTAB PO SCH ×2 (08:33→21:34)
[2018-11-26] MEDS: DOCUSATE SODIUM 100 MG CAP PO SCH ×2 (08:33→21:33)
[2018-11-26] MEDS: ASCORBIC ACID 500 MG TAB PO SCH ×2 (08:33→17:49)
[2018-11-26] MEDS: OLMESARTAN MEDOXOMIL 40 MG TAB PO SCH (08:33)
[2018-11-26] MEDS: PANTOprazole 40 MG TAB PO SCH (08:34)
[2018-11-26] MEDS: VITAMIN B COMPLEX TAB PO SCH (08:34)
[2018-11-26] MEDS: MULTIVITAMIN TAB PO SCH (08:34)
[2018-11-26] MEDS: ESCITALOPRAM OXALATE 10 MG TAB PO SCH (08:34)
[2018-11-26] MEDS: hydroCHLOROthiazide 25 MG TAB PO SCH (08:34)
[2018-11-26] MEDS: INSULIN ASPART 100 UNITS/ML 3 ML PEN SC SCH ×4 (08:39→21:39)
[2018-11-26] MEDS ORDERED: NON-FORMULARY MEDICATION (Olmesartan-Hydrochlorothiazide 1 TAB) PO SCH (09:00)
[2018-11-26] MEDS: TAPENTADOL HCL ER 50 MG TABCR PO SCH ×2 (09:02→21:48)
[2018-11-26] MEDS: INSULIN GLARGINE SOLOSTAR 100 UNITS/ML 3 ML PEN SC SCH ×2 (09:41→21:39)
--- NOTE | 2018-11-26 09:54 | Progress Note ---
DATE: 11/26/2018 SUBJECTIVE: A 63-year-old gentleman postop day 1 from a right knee replacement. He is doing pretty well. Pain has been controlled. Therapy has gone well. No chest pain or shortness of breath. Not feeling dizzy or lightheaded. OBJECTIVE: VITAL SIGNS: Temperature 37.2. Vital signs stable. GENERAL: Physical examination reveals a healthy, pleasant, middle-aged male. He is sitting up in his bedside chair and looks pretty comfortable. EXTREMITIES: Examination of the right leg reveals the dressing to be in place. There is no drainage. He can dorsiflex and plantarflex his foot appropriately. He can do a straight leg raise. LABORATORY DATA: Hemoglobin is 11.5, hematocrit 33.4. Electrolytes reveal potassium of 3.4. ASSESSMENT: A 63-year-old gentleman postop day 1 from right knee replacement, doing pretty well. Potassium is a little bit low. His pain is controlled. He is neurologically intact. PLAN: 1. DVT prophylaxis including thigh-high TEDs, SCDs, and aspirin twice a day. 2. PT/OT. Weight bear as tolerated. Right total knee protocol. 3. Pain control, doing well with current pain regimen. 4. Hypokalemia. Will supplement his potassium today and recheck it tomorrow. 5. Disposition: Plan to discharge to home with some home health once adequately recovered.
--- NOTE | 2018-11-26 10:13 | Anesthesiology Progress Note ---
Date of Service November 26, 2018 Anesthesia Post Procedure Vital Signs Vital Signs: Temp Pulse Pulse Pulse Resp BP Pulse Ox 11/26/18 07:34 37.2 C 70 18 133/74 95 11/26/18 02:05 37.8 C H 73 16 138/72 96 11/25/18 22:37 37.3 C 64 17 148/73 H 97 11/25/18 21:20 65 146/76 H 96 11/25/18 20:20 37.1 C 71 18 132/71 95 11/25/18 17:10 36.7 C 56 L 16 143/74 H 96 11/25/18 16:14 36.8 C 58 L 16 150/77 H 98 11/25/18 14:24 36.8 C 61 16 137/70 95 11/25/18 14:05 37 C 66 18 138/67 94 11/25/18 13:50 37.0 C 61 21 140/62 97 11/25/18 13:40 61 20 134/67 97 11/25/18 13:30 62 19 129/69 97 11/25/18 13:20 63 19 137/66 98 11/25/18 13:10 67 19 131/67 100 11/25/18 13:01 36.6 C 63 16 140/64 98 Pain Intensity Right Knee: Pain Intensity: 6 Left Knee: Pain Intensity: 8 Notes Mental Status: alert / awake / arousable and participated in evaluation Patient Amnestic to Procedure: Yes Nausea / Vomiting: adequately controlled Pain: adequately controlled Airway Patency, RR, SpO2: stable & adequate BP & HR: stable & adequate Hydration State: stable & adequate Neuraxial Anesthesia: was administered and sensory block resolved Anesthetic Complications: no major complications apparent
--- NOTE | 2018-11-26 10:51 | Pharmacy Report ---
Pharmacy Glycemic Short Note 2 - Date of Service November 26, 2018 - Glycemic Short BSG Results (Last 24 hours): 11/25/18 11/25/18 11/25/18 14:35 17:19 20:58 Glucose POC Glucose 143 H 126 H 139 H 11/26/18 11/26/18 11/26/18 02:07 05:24 08:20 Glucose 116 H POC Glucose 130 H 127 H OUTPATIENT ANTIDIABETIC REGIMEN: * Toujeo u-300 70 units BID * Metformin 1000mg BID * Novolog 20 units TID + scale HbA1c: 9.9% on 10/29/18 ASSESSMENT: * POD#1 s/p L knee replacement * BSGs in goal range but on the lower end of the range. * Goal is to maintain BSGs <200 mg/dl (ideally <150 mg/dl) to prevent post op infectious complications * Pt is on Sq basal bolus insulin regimen as an outpatient. Inpatient dosing is less than outpatient dosing most likely d/t carb controlled diet in house * AM fasting BSG above goal range at 127 mg/dl --> This is in goal range but suspect current dosing may still be higher than needed in house. Will slightly reduce dosing to prevent low tomorrow * Post-prandial BSGs in goal range. No changes needed to CF/CR at this time. PLAN FOR INPATIENT GLYCEMIC CONTROL: * Hold outpatient oral diabetes medications * Basal insulin: reduce dosing slightly * Lantus 50 units SQ BID * Bolus insulin: no change * NovoLog per scale ACHS or Q6hrs while NPO * Goal Range: Low 110 mg/dL - High 140 mg/dL * Correction Factor: 20 mg/dL/unit * Nutritional / Prandial insulin per carb ratio of 1 unit per 7 grams CHO consumed PLAN FOR DISCHARGE: * A1c is above goal range at 9.9%. Pt will need to work with outpatient provider to titrate insulin doses for tighter outpatient control. Pt will need f/u appt for A1c >9%
[2018-11-26] MEDS: AMLODIPINE BESYLATE 5 MG TAB PO SCH (21:32)
[2018-11-26] MEDS: ATORVASTATIN 40 MG TAB PO SCH (21:33)
[2018-11-26] MEDS: SENNA 8.6 MG TAB PO SCH (21:34)
[2018-11-26] MEDS: PROPRANOLOL HCL 20 MG TAB PO SCH (21:34)
[2018-11-27] MEDS: SODIUM CHLORIDE 0.9% 1000ML 1,000 ML IV SCH (02:27)
[2018-11-27] MEDS: KETOROLAC 30 MG/ML VIAL IV SCH (05:59)
[2018-11-27] MEDS: ACETAMINOPHEN 500 MG TAB PO SCH (05:59)
[2018-11-27] MEDS: INSULIN ASPART 100 UNITS/ML 3 ML PEN SC SCH (07:28)
[2018-11-27] MEDS: INSULIN GLARGINE SOLOSTAR 100 UNITS/ML 3 ML PEN SC SCH (07:29)
[2018-11-27] MEDS: ASPIRIN 81 MG ECTAB PO SCH (07:33)
[2018-11-27] MEDS: FERROUS GLUCONATE 324 MG TAB PO SCH (07:33)
[2018-11-27] MEDS: ASCORBIC ACID 500 MG TAB PO SCH (07:33)
[2018-11-27] MEDS: ESCITALOPRAM OXALATE 10 MG TAB PO SCH (07:33)
[2018-11-27] MEDS: PANTOprazole 40 MG TAB PO SCH (07:33)
[2018-11-27] MEDS: TAPENTADOL HCL ER 50 MG TABCR PO SCH (07:33)
[2018-11-27] MEDS: VITAMIN B COMPLEX TAB PO SCH (07:33)
[2018-11-27] MEDS: hydroCHLOROthiazide 25 MG TAB PO SCH (07:34)
[2018-11-27] MEDS: MULTIVITAMIN TAB PO SCH (07:34)
[2018-11-27] MEDS: OLMESARTAN MEDOXOMIL 40 MG TAB PO SCH (07:34)
[2018-11-27] MEDS: DOCUSATE SODIUM 100 MG CAP PO SCH (07:34)
--- NOTE | 2018-11-27 08:22 | Progress Note ---
DATE: 11/27/2018 SUBJECTIVE: A 63-year-old gentleman postop day 2 from right knee replacement. He is doing pretty well. Pain is controlled. No chest pain or shortness of breath. Not feeling dizzy or lightheaded. OBJECTIVE: VITAL SIGNS: Temperature 37.5. Vital signs stable. GENERAL: Physical examination shows a pleasant, middle-aged male. He is sitting up in his bedside chair and looks comfortable. EXTREMITIES: Examination of the right leg reveals the dressing to be clean, dry and intact. Maybe just a trace bit of bloody drainage. His calf is soft and supple. He is neurologically intact. ASSESSMENT: A 63-year-old gentleman postop day 2 from right knee replacement, doing pretty well. Pain is controlled. PLAN: 1. DVT prophylaxis including thigh-high TEDs, SCDs, and aspirin twice a day. 2. PT/OT. Weight bear as tolerated. Right total knee protocol. 3. Pain control, doing pretty well with current pain regimen. 4. Disposition: Plan to discharge to home with some home health later today.
--- NOTE | 2018-12-02 18:09 | Discharge Summary ---
ADMITTING PHYSICIAN AND SURGEON: Dr. Skip Jackson. ADMITTING DIAGNOSIS: Right knee degenerative joint disease. SURGERY PERFORMED: Right total knee arthroplasty. SECONDARY DIAGNOSES: Diabetes, hypertension, elevated cholesterol, sleep apnea, obesity, low back pain, kidney stones. CONSULTS: None obtained. HISTORY AND PHYSICAL EXAMINATION: Well documented in patient's chart. HOSPITAL COURSE: The patient was admitted on 11/25/2018 underwent total knee arthroplasty, tolerated the procedure well. There were no complications. He was transferred to the PACU postoperatively and later to the orthopedic floor for further care. He was given Ancef for antibiotic prophylaxis, ÓSCAR stockings, SCDs and aspirin for DVT prophylaxis. Hemoglobin, hematocrit and vital signs were monitored during his hospital stay and remained stable. He did not require any blood transfusions. There were no complications. By postoperative day 2, he was tolerating a diabetic diet. Pain was controlled with oral pain medicine. He was participating in physical therapy. On postop day 2, he was discharged home, set up with home health services, given printed discharge instructions including new prescriptions for extra strength Tylenol, aspirin and oxycodone. Continue his home medications, continue physical therapy, weightbearing as tolerated, ÓSCAR stockings. Follow up in approximately 2 weeks postoperatively or sooner if there are any problems or concerns.
== END 2018-11-27 12:06 | disposition home health service (06) | DRG 470 ==
LOC: ASU 08:17 → 3E 13:02

== ENCOUNTER 2019-02-24 06:31 | Inpatient (IN) ==
[2019-02-12 13:11] LABS: INR 1.1 (0.9-1.1); Partial Thromboplastin Ratio 0.9; Partial Thromboplastin Time 25.4 Seconds (21.0-31.0); Prothrombin Time 11.4 Seconds (9.0-12.0)
[2019-02-12 14:22] LABS: Basophils # (auto) 0.03 K/uL (0-0.2); Basophils % (auto) 0.4 %; Eosinophils # (auto) 0.11 K/uL (0-0.5); Eosinophils % (auto) 1.6 %; Hematocrit (blood only) 37.3 % (42-52); Hemoglobin 12.5 g/dL (14.0-18.0); Immature Granulocytes # (auto) 0.01 K/uL (0.00-0.02); Immature Granulocytes % (auto) 0.1 %; Lymphocytes # (auto) 2.31 K/uL (1.2-3.4); Lymphocytes % (auto) 34.1 %; Mean Corpuscular Hgb Conc 33.5 g/dL (32-36); Mean Corpuscular Volume 80.9 fL (80-100); Mean Platelet Volume 10.4 fL (7.4-10.4); Monocytes # (auto) 0.37 K/uL (0.11-0.59); Monocytes % (auto) 5.5 %; Neutrophils # (auto) 3.95 K/uL (1.4-6.5); Neutrophils % (auto) 58.3 %; Platelet Count 227 K/uL (130-400); RDW Coefficient of Variation 15.2 % (11.5-14.5); RDW Standard Deviation 44.5 fL (36.4-46.3); Red Blood Count 4.61 M/uL (4.7-6.1); White Blood Count 6.78 K/uL (4.8-10.8)
[2019-02-12 16:29] LABS: BUN Creatinine Ratio 16.9 (10-20); Blood Urea Nitrogen 14 mg/dl (7-18); C Reactive Protein < 0.29 mg/dl (0-0.29); Calcium 8.7 mg/dl (8.5-10.1); Carbon Dioxide 27 mmol/L (21-32); Chloride 106 mmol/L (98-107); Creatinine Clr Calc Pharmacy 111.2 ml/min; Est GFR (African American) 108.3; Est GFR (Non-African American) 93.5; Glucose 160 mg/dl (70-99); Potassium 3.8 mmol/L (3.5-5.1); Sodium 140 mmol/L (136-145)
--- NOTE | 2019-02-14 16:25 | History and Physical Report ---
DATE OF ADMISSION: 02/24/2019 CHIEF COMPLAINT: Persistent left knee pain and discomfort. HISTORY OF PRESENT ILLNESS: A 63-year-old gentleman now about 3 months out from right knee replacement, presents for surgical treatment of his left knee. He has got a long history of knee pain and discomfort followed by Dr. Fields in the past. He has had multiple injections, which have become less successful over time. He underwent a right knee replacement just about 3 months ago and has done well from this. It continues to be limited by left knee pain and discomfort. The more he walks, the more it hurts. He has nighttime pain. He would like to proceed with surgical treatment of his left knee. PAST MEDICAL HISTORY: Significant for: 1. Diabetes x15 years. 2. Hypertension. 3. Elevated cholesterol. 4. Sleep apnea with CPAP machine. 5. Obesity, BMI 38. 6. Low back pain. 7. Kidney stones. PAST SURGICAL HISTORY: Previous surgeries include: 1. Lumbar discectomy x3. 2. Right knee replaced on 11/25/2018. ALLERGIES: SULFA. CURRENT MEDICINES: Include: 1. Atorvastatin. 2. Citalopram. 3. Losartan. 4. Metformin. 5. Victoza. 6. NovoLog insulin. 7. Buspirone. 8. Toujeo. SOCIAL HISTORY: A 63-year-old male. He is . Two children. Rare alcohol intake. FAMILY HISTORY: Noncontributory. REVIEW OF SYSTEMS: Significant for diabetes. Denies any chest pain or shortness of breath. No history of DVT or PE. No known bleeding problems. PHYSICAL EXAMINATION: GENERAL: Healthy, pleasant middle-aged male. Looks to be in good health. HEENT: Benign. NECK: Soft. No lymphadenopathy. LUNGS: Clear to auscultation. HEART: Regular rate and rhythm. ABDOMEN: Soft, nontender, nondistended. EXTREMITIES: Grossly neurovascularly intact except as follows. Examination of the left knee reveals the patient who ambulates independently. He has got varus alignment to his knee. Small knee effusion. He is tender over the medial joint line. Range of motion is 5 degrees short of full extension to 120 degrees of flexion. There is no instability. Examination of the right knee reveals well-healed incision. Mild residual swelling. Range of motion 0-115. Good straight leg raise. X-RAYS: X-rays of the left knee reviewed. Shows advanced left knee DJD. He has got near complete loss of his medial joint space. Little bit of tibial femoral subluxation. He has got subchondral sclerosis. ASSESSMENT: A 63-year-old diabetic about 3 months out from a right knee replacement with a left knee degenerative joint disease. He has failed conservative treatment and would like to have his left knee replaced. PLAN: We are going to take him to the Operating Room and do a left total knee replacement. The risks and benefits of this procedure were explained to the patient including but not limited to DVT, PE, , infection, neurological injury, vascular injury, bleeding problem, pain, limited range of motion, stiffness, failure to relieve symptoms, incomplete relief of symptoms, need for further surgery in the future, fracture, leg length inequality, nerve palsy, persistent pain, etc. The patient understands and desires to proceed. Informed consent was obtained. We did talk to him about holding his metformin the morning of surgery. Bring his CPAP machine to the hospital. He is planning to be discharged home using [facility].
--- NOTE | 2019-02-17 10:37 | Anesthesiology Consultation ---
Date of Service February 17, 2019 Assessment & Plan (1) Encounter for pre-operative examination: Check BSG AM DOS Chart Review Chart Review: Acceptable Risk for Surgery and Patient NOT seen in Pre Admission Testing History Surgery Operation Date: 02/24/19 07:00 Proposed Procedures p Left Total Knee Arthroplasty - Skip Jackson MD Height/Weight Height: 5 ft 8 in Weight: 113.398 kg Allergies Allergy/AdvReac Type Severity Reaction Status Date / Time Sulfa (Sulfonamide AdvReac Unknown ACHY AND Verified 01/23/19 14:08 Antibiotics) COLD SYMPTOMS potassium AdvReac ACHY AND Verified 01/23/19 14:12 COLD AND FEVER Medications Home Medications Medication Instructions Recorded Confirmed Last Taken Novolog Flexpen U-100 Insulin 1 dose SUBCUT TID 10/20/18 01/23/19 11/24/18 17:00 Toujeo SoloStar U-300 Insulin 70 unit SUBCUT BID 10/20/18 01/23/19 11/24/18 17:00 amlodipine 5 mg PO HS 10/20/18 01/23/19 11/24/18 21:00 aspirin [Aspir-81] 81 mg PO QPM 10/20/18 01/23/19 11/24/18 21:00 atorvastatin 80 mg PO PM 10/20/18 01/23/19 11/24/18 21:00 cholecalciferol (vitamin D3) 1 - 2 cap PO QAM 10/20/18 01/23/19 11/24/18 08:00 [Vitamin D3] coenzyme Q10 [CoQ-10] 200 mg PO HS 10/20/18 01/23/19 11/24/18 08:00 escitalopram oxalate 10 mg PO QAM 10/20/18 01/23/19 11/24/18 21:00 krill oil 1 cap PO BID 10/20/18 01/23/19 11/24/18 08:00 metformin 1,000 mg PO BID 10/20/18 01/23/19 11/24/18 21:00 naproxen sodium [Aleve] 1 cap PO BID 10/20/18 01/23/19 11/04/18 olmesartan-hydrochlorothiazide 1 tab PO QAM 10/20/18 01/23/19 11/24/18 08:00 pantoprazole 20 mg PO QAM 10/20/18 01/23/19 11/25/18 06:30 propranolol 60 mg PO HS 10/20/18 01/23/19 11/24/18 21:00 vitamin B complex [B-Complex] 1 tab PO QAM 10/20/18 01/23/19 11/24/18 08:00 Past Medical History Medical History Diabetes IDDM Essential tremor GERD (gastroesophageal reflux disease) History of anxiety History of kidney stones Hyperlipidemia Hypertension Sleep apnea CPAP Past Family History Family History Other Family history of colon cancer in father Past Surgical History Surgical History History of colonoscopy History of lithotripsy History of lumbar discectomy X3 History of right knee joint replacement 11/25/18: SAB x 1 at L4-L5 + PNB at [facility] Social History Smoking Status: Former smoker tobacco type: cigarettes Do You Dip or Chew Tobacco: No Smoking End Date: 40 YR AGO Hx Alcohol Use: Yes Alcohol type: beer alcohol intake frequency: holidays/special occasions only Hx Substance Use: No substance use type: does not use Testing Laboratory Results 02/12/19 12:30 02/12/19 12:30 PT 11.4 Seconds (9.0-12.0) 02/12/19 12:30 INR 1.1 (0.9-1.1) 02/12/19 12:30 APTT 25.4 Seconds (21.0-31.0) 02/12/19 12:30 Blood Type O Positive 02/12/19 12:32 Antibody Screen NEGATIVE 02/12/19 12:32 Hgba1c: 10/29/18: 9.9% (surgeon aware) Electrocardiogram Date: 10/29/18 Findings: + NSR @ (66) Nonspecific TWA. Chest X-Ray Date: 10/29/18 Findings: + NAD
[~2019-02-24 06:31] MED LIST changes: -BUPIVACAINE 0.5 % 5 MG/1 ML PF 10ML VIAL ONE; +CEFAZOLIN 2000MG 2,000 MG/15 ML SYR IV SCH; -CEFAZOLIN 3000MG 65 ML IV SCH; +FAMOTIDINE 20 MG TAB PO SCH; +GABAPENTIN 300 MG CAP PO SCH; -GABAPENTIN 300 MG x 2 PO SCH; -ROPIVACAINE 0.5% 5 MG/ML 30 ML VIAL ONE
--- NOTE | 2019-02-24 06:49 | History & Physical Bridge Note ---
Date of Service February 24, 2019 History & Physical Bridge Note I have examined the patient, reviewed the History & Physical and in the interval since the performance of the History & Physical I have noted the following changes of clinical significance: no changes noted
[2019-02-24] MEDS ORDERED: BUPIVACAINE/EPINEPHRINE 0.25% 1:200,000 30 ML VIAL ONE (07:01)
[2019-02-24] MEDS ORDERED: BUPIVACAINE 0.5 % 5 MG/1 ML PF 10ML VIAL ONE (07:01)
[2019-02-24] MEDS ORDERED: DEXAMETHASONE SOD INJ 4 MG/ML VIAL ONE (07:01)
[2019-02-24] MEDS ORDERED: fentaNYL citrate 100 MCG/2 ML VIAL ONE (07:20)
[2019-02-24] MEDS ORDERED: MIDAZOLAM HCL 1 MG/ML 2ML VIAL ONE ×2 (07:20)
[2019-02-24] MEDS ORDERED: fentaNYL citrate 100 MCG/2 ML VIAL IV PRN (08:18)
[2019-02-24] MEDS ORDERED: ONDANSETRON INJ 2 MG/ML 2 ML VIAL IV PRN ×2 (08:18→12:13)
[2019-02-24] MEDS ORDERED: ATROPINE SULFATE 0.1 MG/ML 10ML SYR IV PRN (08:18)
[2019-02-24] MEDS ORDERED: ePHEDrine sulfate 50 MG/ML AMP IV PRN (08:18)
[2019-02-24] MEDS ORDERED: BUPIVACAINE LIPOSOME 1.3% 266 MG/20 ML VIAL ONE (08:47)
[2019-02-24] MEDS ORDERED: SODIUM CHLORIDE 0.9% PF 50 ML VIAL ONE (08:47)
[2019-02-24] MEDS ORDERED: BACITRACIN INJ 50,000 UNIT VIAL ONE (08:47)
[2019-02-24] MEDS ORDERED: EPINEPHrine INJ 1 MG/ML AMP ONE (08:48)
[2019-02-24] MEDS ORDERED: BUPIVACAINE 0.25% 30 ML VIAL ONE (08:48)
--- NOTE | 2019-02-24 11:14 | Post Operative Brief Note ---
Immediate Post Op Note v1 Date of Surgery February 24, 2019 Pre & Post Diagnosis Operation Date: 02/24/19 08:50 Pre-Op Diagnosis: LEFT KNEE DEGENERATIVE JOINT DISEASE Post-Op Diagnosis: LEFT KNEE DEGENERATIVE JOINT DISEASE Procedure Operation Date: 02/24/19 08:50 Actual Procedures p Left Total Knee Arthroplasty, Cemented(Left) - Skip Jackson MD Surgeon Skip Jackson MD Scanner Supervisor Isaias, PAC Estimated Blood Loss 50 Findings Consistent with Post-Op Diagnosis Fluids 800 cc Specimens Left Knee Anesthesia Type Spinal MAC Complications none Disposition Accompanied Patient To Recovery: Yes Disposition: Recovery Room
--- NOTE | 2019-02-24 11:48 | Anesthesiology Progress Note ---
Date of Service February 24, 2019 Anesthesia Post Procedure Vital Signs Vital Signs: Temp Pulse Pulse Resp BP Pulse Ox 02/24/19 11:45 37.3 C 61 16 137/71 98 02/24/19 11:35 67 18 135/72 94 02/24/19 11:25 67 24 131/73 95 02/24/19 11:15 37.0 C 68 13 130/70 94 02/24/19 07:20 36.9 C 66 18 143/76 H 96 Transfer of Care Handoff Completed per policy Notes Mental Status: alert / awake / arousable Patient Amnestic to Procedure: Yes Nausea / Vomiting: adequately controlled Pain: adequately controlled Airway Patency, RR, SpO2: stable & adequate BP & HR: stable & adequate Hydration State: stable & adequate Neuraxial Anesthesia: was administered and sensory block is resolving Anesthetic Complications: no major complications apparent
--- NOTE | 2019-02-24 11:56 | XRay Report ---
XR knee LT 2V routine HISTORY: 63 years-old Male Surgical Post Op [knee total joint arthroplasty. History of degenerative joint disease COMPARISON: Left knee radiographs 02/16/2019 TECHNIQUE: 2 views of the left knee FINDINGS: Left knee total joint arthroplasty and patellar resurfacing. Expected postsurgical soft tissue swelli ng and deep tissue air with anterior midline skin yaz and surgical drainage catheter. Satisfactor y alignment without acute fracture or retained foreign body. IMPRESSION: Left knee total joint arthroplasty and patella resurfacing demonstrates satisfactory alig nment. The above report was generated using voice recognition software. It may contain grammatical, syntax o r spelling errors. Electronically signed by: Donnie Cote M.D. 02/24/2019 11:55 AM
[2019-02-24] MEDS ORDERED: GLUCAGON FOR INJ 1 MG VIAL SQ PRN (12:13)
[2019-02-24] MEDS ORDERED: GLUCOSE 10 TABS/TUBE PO PRN (12:13)
[2019-02-24] MEDS ORDERED: TAMSULOSIN HCL 0.4 MG CAP PO PRN (12:13)
[2019-02-24] MEDS ORDERED: SODIUM CHLORIDE 0.9% 1000ML 1,000 ML IV SCH (12:13)
[2019-02-24] MEDS ORDERED: PHARMACY GLYCEMIC MGMT CONSULT STA (12:13)
[2019-02-24] MEDS ORDERED: CARBOHYDRATES FOR HYPOGLYCEMIA PO PRN (12:13)
[2019-02-24] MEDS ORDERED: DEXTROSE 50% 50 ML SYRINGE IV PRN (12:13)
[2019-02-24] MEDS ORDERED: BISACODYL 10 MG SUPP PR PRN (12:13)
[2019-02-24] MEDS ORDERED: METOCLOPRAMIDE HCL INJ 5 MG/ML 2 ML VIAL IV PRN (12:13)
[2019-02-24] MEDS ORDERED: MAGNESIUM HYDROXIDE SUSP 30 ML UDC PO PRN (12:13)
[2019-02-24] MEDS ORDERED: HYDROmorphone INJ 0.5 MG/0.5 ML SYR IV PRN (12:13)
[2019-02-24] MEDS ORDERED: ALUMINUM/MAGNESIUM SUSP 30 ML UDC PO PRN (12:13)
[2019-02-24] MEDS ORDERED: GLUCOSE 40% GEL 15 GM TUBE PO PRN (12:13)
[2019-02-24] MEDS ORDERED: NALOXONE HCL 0.4 MG/1 ML VIAL/CARP IV PRN (12:13)
[2019-02-24] MEDS ORDERED: INSULIN GLARGINE 100 UNIT/ML VIAL SC STA (12:51)
[2019-02-24] MEDS ORDERED: PHARMACY GLYCEMIC MGMT CONSULT PRN (12:52)
[2019-02-24] MEDS: ACETAMINOPHEN 500 MG TAB PO SCH ×2 (13:48→21:04)
[2019-02-24] MEDS: KETOROLAC 30 MG/ML VIAL IV SCH ×2 (13:49→19:37)
[2019-02-24] MEDS: INSULIN ASPART 100 UNITS/ML VIAL SC SCH ×3 (13:55→20:56)
[2019-02-24] MEDS ORDERED: PNEUMOCOCCAL ADMINISTRATION CHARGE ONE (14:00)
[2019-02-24] MEDS ORDERED: PNEUMOCOCCAL POLYSACCHARIDES 25 MCG/0.5 ML VIAL/SYR IM ONE (14:00)
--- NOTE | 2019-02-24 14:26 | Pharmacy Report ---
Pharmacy Glycemic Short Note 2 - Date of Service February 24, 2019 - Glycemic Short BSG Results (Last 24 hours): 02/24/19 02/24/19 02/24/19 07:14 11:18 12:21 POC Glucose 248 H 296 H 282 H OUTPATIENT ANTIDIABETIC REGIMEN: * Toujeo 70 units SQ BID * Last dose: 02/23 @ 2100 * Novolog TID, per scale (~25 units?) * Metformin 1gm PO BID * HbA1c: 9.9% (10/29/18) -- updated A1c pending with AM labs ASSESSMENT: * Mr Navarrete is a 63yo diabetic male POD 0 s/p L TKA with Dr Jackson this morning. * Patient received 4mg of IV dexamethasone pre-op, which is expected to contribute to significant steroid-induced hyperglycemia. * Patient was ordered a Type 2 diet post-op and did eat some lunch upon admission after surgery. * Aggressive SQ insulin regimen initiated immediately post-op, given: BSGs already elevated, basal insulin deficit from missed dose this morning, and IV steroids given. PLAN FOR INPATIENT GLYCEMIC CONTROL: * Hold outpatient oral diabetes medications * Will resume tomorrow if patient is tolerating diet and renal function is appropriate. * Basal insulin * Lantus 100 units SQ upon arrival to unit post-op, then * Lantus per scale tonight: 40 units, if BSG less than 110 mg/dL 60 units, if BSG 110-200 mg/dL 80 units, if BSG greater than 200 mg/dL * Bolus insulin * NovoLog per scale ACHS, plus 0000 and 0400 tonight while IV steroids are still contributing to elevated BSGs * Goal Range: Low 110 mg/dL - High 150 mg/dL * Correction Factor: 10 mg/dL/unit * Nutritional / Prandial insulin per carb ratio of 1 unit per 4 grams CHO consumed PLAN FOR DISCHARGE: * pending A1c tomorrow
[2019-02-24] MEDS: CEFAZOLIN 2000MG 2,000 MG/15 ML SYR IV SCH ×2 (15:30→23:59)
[2019-02-24] MEDS: CHECK SCOPOLAMINE PATCH PLACEMENT SCH ×2 (15:30→23:59)
[2019-02-24] MEDS: FERROUS GLUCONATE 324 MG TAB PO SCH (16:29)
[2019-02-24] MEDS: ASCORBIC ACID 500 MG TAB PO SCH (16:29)
[2019-02-24] MEDS ORDERED: TRANEXAMIC ACID 1,000 MG in 0.9 % SODIUM CHLORIDE 100 ML IV SCH (17:00)
[2019-02-24] MEDS: SENNA 8.6 MG TAB PO SCH (20:57)
[2019-02-24] MEDS: DOCUSATE SODIUM 100 MG CAP PO SCH (20:58)
[2019-02-24] MEDS: PROPRANOLOL HCL 60 MG LA CAP PO SCH (20:58)
[2019-02-24] MEDS: AMLODIPINE BESYLATE 5 MG TAB PO SCH (20:58)
[2019-02-24] MEDS: ASPIRIN 81 MG ECTAB PO SCH (20:58)
[2019-02-24] MEDS: ATORVASTATIN 40 MG TAB PO SCH (20:58)
[2019-02-24] MEDS ORDERED: INSULIN GLARGINE U U SQ SCH (21:00)
[2019-02-24] MEDS ORDERED: NON-FORMULARY MEDICATION (Coenzyme Q10 [Coq-10] 200 MG) PO SCH (21:00)
[2019-02-24] MEDS ORDERED: INSULIN GLARGINE 100 UNIT/ML VIAL SC SCH (21:00)
[2019-02-25] MEDS: INSULIN ASPART 100 UNITS/ML VIAL SC SCH ×6 (00:08→20:54)
--- NOTE | 2019-02-25 00:55 | Operative Report ---
DATE OF OPERATION: 02/24/2019 DATE OF SURGERY: 02/24/2019 SURGEON: Skip Jackson MD [employer] CARETAKER: Titi Esparza PA-C. PREOPERATIVE DIAGNOSIS: Left knee degenerative joint disease. POSTOPERATIVE DIAGNOSIS: Left knee degenerative joint disease. PROCEDURE PERFORMED: Left cemented posterior stabilized total knee arthroplasty. COMPLICATIONS: None. ESTIMATED BLOOD LOSS: 50 mL. FLUID REPLACEMENT: 800 mL crystalloid fluid replacement. TOURNIQUET TIME: 72 minutes at 300 mmHg. ANESTHESIA: Spinal with adductor canal block. DRAINS: None. SPECIMENS: Left knee sent for pathology. OPERATIVE INDICATIONS: The patient is a 63-year-old gentleman who has had a long history of bilateral knee pain and discomfort, treated conservatively over the past several years. His symptoms become less responsive to conservative care. He underwent a right knee replacement earlier this year and has done quite well from this. He elected to proceed with left total knee arthroplasty. OPERATIVE FINDINGS: Operative findings revealed advanced left knee DJD, primarily involving the medial and patellofemoral compartments with grade 4 changes in both areas. He had a large knee joint effusion with varus alignment to his knee and a 10 degree flexion contracture. He had osteophytes in the medial compartment. OPERATIVE IMPLANTS: Operative implants consisted of: 1. Biomet Vanguard size 70 left posterior stabilized femoral component. 2. A Biomet size 75 tibial tray. 3. A 10 mm posterior stabilized polyethylene insert. 4. A 34 x 8.5 all poly patella. OPERATIVE PROCEDURE: The patient taken to the operating room, identified and placed on the operating table in supine position. All contact areas were appropriately padded. IV antibiotics provided by anesthesia team. A spinal anesthetic and adductor canal block had been provided in the holding area. Mckeon catheter was placed in sterile fashion. A left thigh tourniquet was then placed. The left lower extremity was then prepped and draped in the usual sterile fashion. Left leg was elevated and exsanguinated with an Esmarch and tourniquet was placed at 300 mmHg. An anterior approach of the left knee was then performed through a longitudinal incision centered over the patella. Sharp dissection was carried through subcutaneous tissue down to the level of the extensor mechanism. Medial parapatellar arthrotomy incision was made. Some subperiosteal dissection was carried out medially. The fat pad resected from beneath the patellar tendon. There was quite a bit of scarring in the fat pad to the patella tendon. The lateral patellofemoral ligament was released. The patella was everted and knee was flexed. The osteophytes were taken off the distal femur. The ACL and PCL were then released from the distal femur and the tibia subluxated anteriorly. The external tibial alignment jig was then placed in the anterior face of the tibia and adjusted about 14 mm medially. Proximal tibial cut was made to remove about 2-3 mm of bone from the most deficient aspect of the medial tibial plateau. The tourniquet was then sized to a size 75. The AP cutting tension was then drawn to the femur. The distal femur was entered with a sharp drill. Intramedullary canal was suctioned. A left 6-degree valgus cutting guide was placed. Distal femoral cutting block was pinned in place. Distal femoral cut was made to take an additional 3 mm of bone off the distal femur. The femur was then sized to a size 70. We sized almost exactly 70. The AP cutting block was pinned parallel to the epicondylar axis, which was 5 degrees of external rotation. The anterior cut, anterior chamfer, posterior cut, posterior chamfer cuts were made. Box cutting guide was placed and adjusted slightly lateral and the box cut was made. The knee was flexed. The remnants of the medial and lateral menisci were excised. The osteophytes were taken off the posterior aspect of the femur. Trial femoral component was placed. Tibial tray was pinned in maximum external rotation and the drill and stem punch were used to create defect in proximal tibia for the tibial tray. The knee was then trialed and the 10 mm insert fit most appropriately. Attention was then drawn to the patella. The patella was cleaned of all soft tissues. Patella thickness measured 22 mm in thickness, was cut down to 14. It was sized to a size 34 patella. Lug holes were drilled for a 34 patella. Lateral osteophyte was removed. Patella button was placed. Knee was taken through range of motion, patella tracked nicely with no thumbs test. Attention was then turned toward placement of permanent components. All trial components were removed. Bone plug was placed in the distal femur to limit blood loss. A double batch of Palacos G cement was mixed. A BiomGet Satisfaction Vanguard size 70 left posterior stabilized femoral component, size 75 tibial tray, 10 mm posterior stabilized polyethylene insert, and a 34 x 8.5 all poly patella then cemented in place. Knee was brought out into full extension until cement hardened. A final cement check was then performed. Pericapsular tissues were injected with a total of 100 mL of combination of 20 mL of Exparel, 30 mL of normal saline, 50 mL 0.25% Marcaine with epinephrine. The patient did receive 1 gram of tranexamic acid. The tourniquet was then let down for final tourniquet time 72 minutes. Hemostasis was assured with use of electrocautery. The wound was once again irrigated. Extensor mechanism was then closed with combination of #1 PDS suture and #1 Vicryl suture in a [id number] fashion. Extensor mechanism was checked and found to be intact. Subcutaneous tissues were then closed with #2 Dexon suture in a buried interrupted fashion. Skin was closed with skin yaz. Leg was then cleaned, dried and a sterile dressing of Xeroform, 4 x 4, sterile cast padding and Allan bandage were applied. The patient then transferred to the recovery room in stable condition. The patient tolerated the procedure well with no complication. All needle and sponge counts were correct at the end of the operation. I attest to the content of the Intraoperative Record and any orders documented therein. Any exception s are noted below.
[2019-02-25] MEDS: KETOROLAC 30 MG/ML VIAL IV SCH ×4 (01:39→20:01)
--- NOTE | 2019-02-25 04:28 | Progress Note ---
DATE: 02/24/2019 SUBJECTIVE: A 63-year-old gentleman postop from a left knee replacement. He is doing well. Pretty minimal pain. No chest pain or shortness of breath. Not feeling dizzy or lightheaded. OBJECTIVE: VITAL SIGNS: Temperature 36.8. Vital signs stable. PHYSICAL EXAMINATION: GENERAL: Shows a pleasant, middle-aged male. I had to wake him when I went in his room this afternoon. LUNGS: Clear to auscultation. HEART: Regular rate and rhythm. ABDOMEN: Soft, nontender, nondistended. EXTREMITIES: Grossly neurovascularly intact except as follows: Examination of the left lower extremity reveals the leg to be well aligned. Dressing is clean, dry, and intact. He can dorsiflex and plantarflex his foot appropriately. He is neurologically intact. X-RAYS: X-rays of the left knee from recovery room reviewed. It shows a cemented posterior stabilized total knee arthroplasty. Components looked to be in good position. No signs of problems. ASSESSMENT: A 63-year-old diabetic postop from a left knee replacement, doing well. His pain is controlled. He is neurologically intact. PLAN: 1. DVT prophylaxis including thigh-high TEDs, SCDs, and aspirin twice a day. 2. PT/OT. Weight bear as tolerated. Left total knee protocol. 3. Pain control, doing well with current pain regimen. 4. IV antibiotics x24 hours. 5. Disposition: Plan to discharge to home with some home health once adequately recovered and medically stable.
[2019-02-25] MEDS: ACETAMINOPHEN 500 MG TAB PO SCH ×3 (05:43→20:52)
[2019-02-25 06:38] LABS: Hematocrit (blood only) 32.7 % (42-52); Mean Corpuscular Hgb Conc 33.6 g/dL (32-36); Mean Platelet Volume 10.1 fL (7.4-10.4); Platelet Count 213 K/uL (130-400); RDW Coefficient of Variation 14.6 % (11.5-14.5); RDW Standard Deviation 43.8 fL (36.4-46.3); Red Blood Count 3.99 M/uL (4.7-6.1); White Blood Count 12.21 K/uL (4.8-10.8)
[2019-02-25 06:52] LABS: Estimated Average Glucose 200 mg/dl; Hemoglobin A1C 8.6 % (4.5-5.6)
[2019-02-25 07:06] LABS: BUN Creatinine Ratio 19.8 (10-20); Calcium 8.3 mg/dl (8.5-10.1); Creatinine Clr Calc Pharmacy 85.3 ml/min; Est GFR (African American) 83.6; Est GFR (Non-African American) 72.2; Potassium 3.7 mmol/L (3.5-5.1)
[2019-02-25] MEDS: ASCORBIC ACID 500 MG TAB PO SCH ×2 (08:16→17:26)
[2019-02-25] MEDS: FERROUS GLUCONATE 324 MG TAB PO SCH ×2 (08:16→17:26)
[2019-02-25] MEDS: PANTOprazole 40 MG TAB PO SCH (08:16)
[2019-02-25] MEDS: ESCITALOPRAM OXALATE 10 MG TAB PO SCH (08:17)
[2019-02-25] MEDS: MULTIVITAMIN TAB PO SCH (08:17)
[2019-02-25] MEDS: VITAMIN B COMPLEX TAB PO SCH (08:17)
[2019-02-25] MEDS: CHOLECALCIFEROL 1,000 UNITS TAB PO SCH (08:18)
[2019-02-25] MEDS: hydroCHLOROthiazide 25 MG TAB PO SCH (08:18)
[2019-02-25] MEDS: DOCUSATE SODIUM 100 MG CAP PO SCH ×2 (08:19→15:36)
[2019-02-25] MEDS: ASPIRIN 81 MG ECTAB PO SCH ×2 (08:19→20:52)
[2019-02-25] MEDS: OLMESARTAN MEDOXOMIL 40 MG TAB PO SCH (08:19)
[2019-02-25] MEDS ORDERED: INSULIN GLARGINE 100 UNIT/ML VIAL SC ONE (08:30)
[2019-02-25] MEDS: TRAMADOL HCL 50 MG TABLET PO PRN ×2 (08:34→20:02)
--- NOTE | 2019-02-25 15:20 | Pharmacy Report ---
Pharmacy Glycemic Short Note 2 - Date of Service February 25, 2019 - Glycemic Short BSG Results (Last 24 hours): 02/24/19 02/24/19 02/24/19 17:13 17:15 17:25 Glucose POC Glucose 315 H* 286 H 255 H 02/24/19 02/24/19 02/24/19 20:39 20:41 20:53 Glucose POC Glucose 343 H* 353 H* 335 H* 02/24/19 02/25/19 02/25/19 22:59 00:07 03:48 Glucose POC Glucose 278 H 233 H 212 H 02/25/19 02/25/19 02/25/19 06:09 08:08 12:15 Glucose 217 H POC Glucose 211 H 256 H OUTPATIENT ANTIDIABETIC REGIMEN: * Toujeo 70 units SQ BID * Last dose: 02/23 @ 2100 * Novolog TID, per scale (~25 units?) * Metformin 1gm PO BID * HbA1c: 9.9% (10/29/18) -- updated A1c pending with AM labs ASSESSMENT: 02/25/19: * Mr Navarrete's BSGs remain elevated today, despite aggressive insulin regimen post-op. * Novolog parameters tightened this morning. Will tighten further if needed. * Expect that effects of IV DXM on BSGs should begin to dissipate. 02/24 * Mr Navarrete is a 63yo diabetic male POD 0 s/p L TKA with Dr Jackson this morning. * Patient received 4mg of IV dexamethasone pre-op, which is expected to contribute to significant steroid-induced hyperglycemia. * Patient was ordered a Type 2 diet post-op and did eat some lunch upon admission after surgery. * Aggressive SQ insulin regimen initiated immediately post-op, given: BSGs already elevated, basal insulin deficit from missed dose this morning, and IV steroids given. PLAN FOR INPATIENT GLYCEMIC CONTROL: * Hold outpatient oral diabetes medications * Resume Metformin 1gm PO BID, beginning at dinner today * Basal insulin * Lantus 100 units SQ this morning, then * Lantus per scale this evenin units, if BSG less than 110 mg/dL 60 units, if BSG 110-200 mg/dL 80 units, if BSG greater than 200 mg/dL * Bolus insulin * NovoLog per scale ACHS, plus 0000 and 0400 tonight while IV steroids are still contributing to elevated BSGs * Goal Range: Low 110 mg/dL - High 150 mg/dL * Correction Factor: 8 mg/dL/unit * Nutritional / Prandial insulin per carb ratio of 1 unit per 3 grams CHO consumed PLAN FOR DISCHARGE: * Patient's A1c (8.6%) indicates slightly sub-optimal glycemic control as an outpatient. * Expect that patient may resume home regimen on discharge, with outpatient f/u to work toward optimizing A1c.
[2019-02-25] MEDS: SENNA 8.6 MG TAB PO SCH (15:36)
[2019-02-25] MEDS ORDERED: INSULIN GLARGINE 100 UNIT/ML VIAL SC SCH (16:30)
[2019-02-25] MEDS: METFORMIN HCL 500 MG TAB PO SCH (17:26)
--- NOTE | 2019-02-25 18:15 | Progress Note ---
DATE: 02/25/2019 SUBJECTIVE: A 63-year-old gentleman postop day 1 from left knee replacement. He is doing pretty well. Pain is controlled. Therapy went well. No chest pain or shortness of breath. Major complaint is some back pain. OBJECTIVE: VITAL SIGNS: Temperature 37.1. Vital signs stable. PHYSICAL EXAMINATION: GENERAL: Shows a pleasant, middle-aged male. He is sitting up at his bedside chair, looks comfortable. EXTREMITIES: Examination of the left leg reveals the dressing to be clean, dry, and intact. He can dorsiflex and plantarflex his foot appropriately. He is neurologically intact. LABORATORY DATA: Hemoglobin 11.0. Hematocrit 32.7. Electrolytes are stable. ASSESSMENT: 63-year-old gentleman postop day 1 from left knee replacement, doing well. Pain is controlled. He is neurologically intact. PLAN: 1. DVT prophylaxis including thigh-high TEDs, SCDs, and aspirin twice a day. 2. PT/OT. Weight bear as tolerated. Left total knee protocol. 3. Pain control, doing well with current pain regimen. 4. Disposition: He is planning to be discharged home with some home health. We will likely have him work on his back and some sciatica type symptoms as well.
[2019-02-25] MEDS: ATORVASTATIN 40 MG TAB PO SCH (20:52)
[2019-02-25] MEDS: PROPRANOLOL HCL 60 MG LA CAP PO SCH (20:52)
[2019-02-25] MEDS: AMLODIPINE BESYLATE 5 MG TAB PO SCH (20:52)
[2019-02-26] MEDS: KETOROLAC 30 MG/ML VIAL IV SCH ×2 (02:11→07:37)
[2019-02-26] MEDS: ACETAMINOPHEN 500 MG TAB PO SCH (05:47)
[2019-02-26] MEDS: ESCITALOPRAM OXALATE 10 MG TAB PO SCH (08:31)
[2019-02-26] MEDS: CHOLECALCIFEROL 1,000 UNITS TAB PO SCH (08:31)
[2019-02-26] MEDS: DOCUSATE SODIUM 100 MG CAP PO SCH (08:31)
[2019-02-26] MEDS: METFORMIN HCL 500 MG TAB PO SCH (08:31)
[2019-02-26] MEDS: PANTOprazole 40 MG TAB PO SCH (08:32)
[2019-02-26] MEDS: hydroCHLOROthiazide 25 MG TAB PO SCH (08:32)
[2019-02-26] MEDS: FERROUS GLUCONATE 324 MG TAB PO SCH (08:32)
[2019-02-26] MEDS: MULTIVITAMIN TAB PO SCH (08:32)
[2019-02-26] MEDS: ASCORBIC ACID 500 MG TAB PO SCH (08:33)
[2019-02-26] MEDS: VITAMIN B COMPLEX TAB PO SCH (08:33)
[2019-02-26] MEDS: OLMESARTAN MEDOXOMIL 40 MG TAB PO SCH (08:33)
[2019-02-26] MEDS: ASPIRIN 81 MG ECTAB PO SCH (08:33)
[2019-02-26] MEDS: INSULIN ASPART 100 UNITS/ML VIAL SC SCH (08:36)
[2019-02-26] MEDS: TRAMADOL HCL 50 MG TABLET PO PRN (08:39)
[2019-02-26] MEDS ORDERED: INSULIN GLARGINE 100 UNIT/ML VIAL SC SCH (09:00)
--- NOTE | 2019-02-26 09:36 | Progress Note ---
DATE: 02/26/2019 SUBJECTIVE: A 63-year-old gentleman postop day 2 from a left knee replacement. He is doing pretty well. Pain is controlled. No chest pain or shortness of breath. Not feeling dizzy or lightheaded. OBJECTIVE: VITAL SIGNS: Temperature 37.2. Vital signs stable. PHYSICAL EXAMINATION: GENERAL: Shows a pleasant, middle-aged male, lying in bed, doing a heel prop and looks pretty comfortable. EXTREMITIES: Examination of the left leg reveals incision to be clean, dry and intact. No significant drainage. Mild swelling. Calf is soft and supple. He is neurologically intact. ASSESSMENT: A 63-year-old gentleman postoperative day 2 from left knee replacement, doing well. His pain is controlled. He is neurologically intact. PLAN: 1. DVT prophylaxis including thigh-high TEDs, SCDs, and aspirin twice a day. 2. PT/OT. Weight bear as tolerated. Left total knee protocol. 3. Pain control, doing well with current pain regimen. 4. Disposition: Plan to discharge to home with some home health later today.
--- NOTE | 2019-03-07 18:57 | Discharge Summary ---
ADMITTING PHYSICIAN AND SURGEON: Dr. Skip Jackson. ADMITTING DIAGNOSIS: Left knee degenerative joint disease. SURGERY PERFORMED: Left total knee arthroplasty. CONSULTS: None were obtained. History and physical examination were well documented within the patient's chart. HOSPITAL COURSE: Mr. Navarrete was admitted to [facility] on 02/24/2019 and underwent a left total knee arthroplasty. He tolerated the procedure well. There were no apparent complications. He was later transferred to PACU postoperatively and later to the orthopedic floor for further care. He was given Ancef for antibiotic prophylaxis, ÓSCAR stockings, SCDs as well as aspirin for DVT prophylaxis. Hemoglobin, hematocrit and vital signs were monitored during the hospital stay and remained stable. He did not require any blood transfusions. By postop day #2, he was tolerating a regular diet. Pain was well controlled with oral pain medication. He was participating in occupational therapy as well as physical therapy. By postop day #2, he was discharged home and set up with home health care. Printed discharge instructions were provided to him as well as new prescriptions for acetaminophen, tramadol, and aspirin. He is to continue with physical therapy. He can be weightbearing as tolerated. Recommend total left knee protocol. Follow up in the office in 2 weeks postoperatively or sooner if there are any problems or concerns.
== END 2019-02-26 11:53 | disposition home health service (06) | DRG 470 ==
LOC: ASU 06:31 → 3E 11:19

== ENCOUNTER 2020-10-05 08:28 | Observation (INO) ==
--- NOTE | 2020-09-20 15:18 | Anesthesiology Consultation ---
Date of Service September 20, 2020 Assessment & Plan (1) Encounter for pre-operative examination: COVID Status: As of 09/19 nurse assessment, patient denies travel to endemic area, known exposure/sick contacts, or symptoms of COVID19. Preoperative COVID19 testing to be completed on 09/29. Cardiology clearance 09/20/2020: "He can proceed at intermediate risk 3%. CABG in 2019 and LV function (2019) is normal." Chart Review Chart Review: Acceptable Risk for Surgery and Patient NOT seen in Pre Admission Testing History Surgery Operation Date: 10/05/20 10:55 Proposed Procedures p Total Knee Revision Versus Antibiotic Spacer - Skip Jackson MD Height/Weight Height: 5 ft 8 in Weight: 117.934 kg Allergies Allergy/AdvReac Type Severity Reaction Status Date / Time sulfadiazine Allergy Mild achy and Verified 09/19/20 14:21 cold symptoms lisinopril [From Prinivil] Allergy Unknown Reaction Verified 09/19/20 14:21 unknown- pt unaware Sulfa (Sulfonamide AdvReac Unknown ACHY AND Verified 09/19/20 14:21 Antibiotics) COLD SYMPTOMS Medications Home Medications Medication Instructions Recorded Confirmed Last Taken cholecalciferol (vitamin D3) 1 - 2 cap PO QAM 10/20/18 09/19/20 07/31/19 [Vitamin D3] coenzyme Q10 [CoQ-10] 200 mg PO HS 10/20/18 09/19/20 07/31/19 metformin 1,000 mg PO BID 10/20/18 09/19/20 07/31/19 acetaminophen 1,000 mg PO UD PRN 07/31/19 09/19/20 Unknown aspirin [Aspirin Low Dose] 81 mg PO QAM 07/31/19 09/19/20 07/31/19 propranolol 60 mg PO QPM 07/31/19 09/19/20 07/30/19 amlodipine 5 mg tablet 10 mg PO HS tab 08/24/19 09/19/20 Unknown escitalopram oxalate 20 mg tablet 20 mg PO QAM tab 08/24/19 09/19/20 Unknown krill oil 500 mg capsule 500 mg PO QAM cap 08/24/19 09/19/20 Unknown Dexcom G6 Health Assistant #1 ea NS 08/25/19 08/04/20 Unknown Dexcom G6 Transmitter #1 ea NS 08/25/19 08/04/20 Unknown Dexcom G6 Sensor #3 ea NS 08/28/19 08/04/20 Unknown atorvastatin 40 mg tablet 40 mg PO HS 11/30/19 09/19/20 Unknown magnesium 250 mg tablet 250 mg PO QAM 11/30/19 09/19/20 Unknown olmesartan 20 mg tablet 20 mg PO QAM 11/30/19 09/19/20 Unknown potassium 99 mg tablet 99 mg PO QAM tab 11/30/19 09/19/20 Unknown BD Ultra-Fine Pen Needle 32 #400 ea NS 12/28/19 05/30/20 Unknown gauge x 5/32" Humalog KwikPen Insulin 100 20 unit SUBCUT TID 90 Days #60 ml 03/23/20 09/19/20 Unknown unit/mL subcutaneous NS cyanocobalamin (vitamin B-12) 1,000 mcg PO QAM 05/02/20 09/19/20 Unknown blood sugar diagnostic #10 ea 08/04/20 08/04/20 Unknown insulin glargine U-300 conc 300 100 unit SUBCUT HS ml 08/04/20 09/19/20 Unknown unit/mL (1.5 mL) subcutaneous pen lancets 30 gauge #100 ea 08/04/20 08/04/20 Unknown Past Medical History Medical History (Updated 09/20/20 @ 15:17 by Ravin Hooks) Chronic knee pain after total replacement of both knee joints Coronary artery disease S/p 3 vessel CABG 04/2019- [facility]. Diabetes IDDM- glucose elevated recently- follows with endo routinely Dyslipidemia Essential tremor To bilateral hands - R>L GERD (gastroesophageal reflux disease) Well controlled and stable History of anxiety Hypertension Sleep apnea CPAP Status post placement of implantable loop recorder Transient ischemic attack (TIA) Jul 2019. Seen in ED 07/31/19 for L handed weakness. Negative head CTA for acute intracranial abnormality. Another episode of stroke-like sx prompted floor attendant to order brain MRI 04/2020, which did show old lacunar infarct. Referred to neurology, who recommended patient proceed with cardiology's plan to implant loop recorder to assess for artial arrhythmias. Past Family History Family History Mother Diabetes Macular degeneration Father Colorectal cancer Other Family history of colon cancer in father Past Surgical History Surgical History (Updated 09/20/20 @ 15:17 by Ravin Hooks) History of bilateral knee replacement History of colonoscopy History of lithotripsy History of loop recorder placed 05/2020 Dr Rajan to assess for arrhythmia as possible source for TIA/CVA occurring in July and March 2020. Medtr[employer] device. History of lumbar discectomy X3 History of right knee joint replacement 11/25/18: SAB x 1 at L4-L5 + PNB at [facility] S/P triple vessel bypass 04/2019 at [facility] and follows with dr raymond Social History Smoking Status: Never smoker tobacco type: cigarettes Do You Dip or Chew Tobacco: No Hx Alcohol Use: No Alcohol type: beer alcohol intake frequency: holidays/special occasions only Hx Substance Use: No substance use type: does not use Testing Laboratory Results Blood Type O Positive 09/16/20 15: Antibody Screen NEGATIVE 09/16/20 15:30 09/16/20 WBC: 6.50 H/H: 14.1/41.1 PLATELETS: 217 SODIUM: 141 POTASSIUM: 3.8 CHLORIDE: 107 CO2: 28 BUN: 15 CREATININE: 0.85 GLUCOSE: 141 PT: 10.9 INR: 1.1 A1C 05/18/20: 8.4% Electrocardiogram Date: 05/18/20 Findings: + NSR @ (60bpm) T wave abnormality, consider lateral ischemia. Compared with EKG of 08/27/2019, nonspecific T wave abnormality is worse in inferior leads. Questionable change in QR axis. Same T wave abnormality also present on 04/13/2020 EKG from [facility], reviewed by patient's primary floor attendant. Chest X-Ray Date: 05/09/20 Findings: + NAD Echocardiogram Date: 08/07/19 EF: 60% Limited 2D and spectral Doppler imaging performed to evaluate LV function. Normal LV size and systolic function with no regional wall motion normalities. Moderate concentric LVH. Normal left atrial pressure. Dilated right ventricle with reduced systolic function, TAPSE is 1.3 cm. Moderately dilated left atrium. Cardiac Catheterization Date: 04/13/19 Multivessel coronary artery disease. Mid LAD 80%, D1 80%, proximal left circumflex 60%, distal left circumflex 80%, mid RCA 90% lesions. Picr-os-qydor collateral flow. Uncomplicated right radial access. Recommendation: CT surgery consult placed to evaluate for coronary artery bypass grafting.
[~2020-10-05 08:28] MED LIST changes: +BUPIVACAINE 0.25% 30 ML VIAL ONE; +BUPIVACAINE 0.5 % 5 MG/1 ML PF 10ML VIAL ONE; -CEFAZOLIN 2000MG 2,000 MG/15 ML SYR IV SCH; -SCOPOLAMINE 1.5 MG TDSY TD SCH; +Scopolamine 1 MG TDSY TD SCH; +ceFAZolin 2000MG 2,000 MG/15 ML SYR IV SCH
--- NOTE | 2020-10-05 09:09 | History & Physical Bridge Note ---
Date of Service October 05, 2020 History & Physical Bridge Note I have examined the patient, reviewed the History & Physical and in the interval since the performance of the History & Physical I have noted the following changes of clinical significance: no changes noted
[2020-10-05] MEDS ORDERED: MIDAZOLAM HCL 1 MG/ML 2ML VIAL ONE ×2 (09:35)
[2020-10-05] MEDS ORDERED: PROPOFOL IV EMULSION 10 MG/ML 20 ML VIAL IV ONE ×4 (09:35→13:17)
[2020-10-05] MEDS ORDERED: fentaNYL citrate 100 MCG/2 ML VIAL ONE (09:35)
[2020-10-05] MEDS ORDERED: LIDOCAINE HCL 2% 2 ML VIAL/AMP(20MG/ML) INFIL ONE (09:35)
[2020-10-05] MEDS ORDERED: INSULIN ASPART PER UNIT SC STA (10:11)
[2020-10-05] MEDS ORDERED: BACITRACIN INJ 50,000 UNIT VIAL ONE (10:48)
[2020-10-05] MEDS ORDERED: SODIUM CHLORIDE 0.9% PF 50 ML VIAL ONE (10:48)
[2020-10-05] MEDS ORDERED: BUPIVACAINE 0.25% 30 ML VIAL ONE (10:48)
[2020-10-05] MEDS ORDERED: BUPIVACAINE LIPOSOME 1.3% 266 MG/20 ML VIAL ONE (10:48)
[2020-10-05] MEDS ORDERED: EPINEPHrine INJ 1 MG/ML AMP ONE (10:49)
[2020-10-05] MEDS ORDERED: TOBRAMYCIN SULFATE 1,200 MG VIAL ONE (10:51)
[2020-10-05] MEDS ORDERED: ePHEDrine sulfate 50 MG/ML AMP IV PRN (11:12)
[2020-10-05] MEDS ORDERED: ATROPINE SULFATE 0.1 MG/ML 10ML SYR IV PRN (11:12)
[2020-10-05] MEDS: VANCOMYCIN HCL 1000MG/20ML VIAL ONE ×3 (12:25→12:54)
--- NOTE | 2020-10-05 13:58 | Operative Report ---
Post Operative Report Pre & Post Diagnosis Operation Date: 10/05/20 10:40 Pre-Op Diagnosis: Painful Left Total Knee Replacement with aseptic loosening. Post-Op Diagnosis: Painful Left Total Knee Replacement with aseptic loosening of the tibial component. Femoral component appears well fixed as did the patella component. There is no second patella wear. I identified the patient and participated in the time-out.: Yes Procedure Operation Date: 10/05/20 10:40 Actual Procedures p Left Total Knee Tibial Revision(Left) - Skip Jackson MD Surgeon kSip Jackson MD Portfolio Specialist LEONIDAS Alarcon Estimated Blood Loss 100 Findings Consistent with Post-Op Diagnosis Operative findings revealed a moderate to large serous effusion. It was not bloody at this point. The tibial component had significant fibrous fixation. It was not grossly loose but clearly was loose. The patella was well preserved without any signs of wear or loosening. The femoral component appeared rocksolid without any signs of lucency lysis or loosening. Fluids 1300 cc. Specimens Left knee synovium sent for frozen section which revealed 0 polys per high-power field. Left knee joint fluid sent for Gram stain which are rare to a few mononuclear cells, rare polys, 0 organisms. Drains None. Anesthesia Type Spinal MAC Complications none Disposition Accompanied Patient To Recovery: No Disposition: Recovery Room Indications Patient is a 65-year-old gentleman who is had a long history of knee problems. He underwent a left knee replacement over a year and a half ago. He did well initially but then over the past 6 months to a year developed increased pain discomfort and swelling in his knee. He has had 2 separate extensive infectious work-ups which were negative. X-ray suggested lucency around the tibial tray. He had a bone scan which also revealed a lucency/8 loosening of the tibial component. The femoral component appeared to be a well still fixed. Patient failed conservative treatment elected proceed with revision arthroplasty. Description of Procedure Operative implants consist of: 1. Biomet Vanguard III 60 size 75 tibial tray with a 14 x 80 mm offset stem with a 5 mm offset and a small cruciate wing. 2. 18 mm posterior stabilized polyethylene insert. The patient was taken to the operating identified and placed on the operating table supine position protectors were properly padded. IV antibiotics arrived by anesthesia team. A spinal anesthetic and abductor canal block had provided holding area. Mckeon catheter was placed in sterile fashion for the left thigh turn was then placed in the left lower extremity was then prepped and draped in usual sterile fashion. The left leg was elevated exsanguinated with use of an Esmarch and turns placed at 300 mmHg. An anterior approach to the left knee was then performed using the previous incision and extending it proximally about 3 cm and distally about 1 cm. Sharp dissection was got through subcutaneous tissue down the extensor mechanism. A medial parapatellar arthrotomy incision was made. He had a small to moderate amount of a joint fluid which was serous in nature. Did not look inflammatory toward. We sent this off for Gram stain with culture and the Gram stain revealed few mononuclear cells, rare polys and no organisms. A complete synovectomy of the suprapatellar pouch and medial lateral gutters was performed. The synovium was sent for pathology and revealed 0 polys per high-power field. In light of this finding as well as his preop work-up there did not appear to be any infection. We elected to proceed with revision. I flexed the knee and subluxated the patella laterally. The polyethylene was removed. The tibial tray did appear to be loose but was not grossly loose. I used a small sawblade to develop the interface and then an osteotome and went remove the tibial tray using a stacked osteotome technique. The cement was partially still attached to the tray and then some was still in the tibial metaphyseal area. I spent some time the jesus ving the cement. There was no signs of purulence or infection. I then examined the femoral component extensively and that was rock solidly fixed. I also assessed rotation and the femoral component was appropriately rotated. There was no signs of any signs of loosening or osteolysis around that. In light of this I elected to not to revise the femoral component. Attention then drawn back to the tibia. I reamed the tibia up to a size 14. The reamer was left in place and I cut the tibia off the reamer using the IM guide. We removed 2 mm from most efficient aspect medial side. It did take a fairly large piece off. Great care was taken throughout the procedure protect the patella tendon attachment. We then sized the knee to a 75. The tibia was then prepared for a an 80 x 14 mm offset stem with a 5 mm offset and small cruciate wing. This was assembled and placed in the tibia and had an excellent fit. I then trialed the knee in the 18 insert fit most appropriately. We elected to proceed with placing these implants. All trial implants were removed. The wound was irrigated extensively. A double batch of Palacos G cement was mixed with 2 additional grams of vancomycin. The tibial tray was then fixed that with cement in the metaphysis and the surface components. The trial polywas placed. The knee was brought out in full extension total cement hardened. Once the cement hardened the tourniquet was let down for tourniquet time 92 minutes. Hemostasis assured use electrocautery. I irrigated the wound again. An 18 mm permanent posterior stabilized polyethylene insert was placed. Attention drawn toward closing. The wound was irrigated cups ounce of pulsatile lavage solution. I injected locally with 100 cc of combination of 20 cc of Exparel, 30 cc normal saline, 50 cc of quarter percent Marcaine with epinephrine. Patient did receive 1 g tranexamic acid. The extensor macros then closed with combination 1 PDS suture #1 Vicryl suture in a [id number] fashion. Extensor mechanism checked found to be intact. The patella tracked nicely. The subcutaneous tissues then closed with 2 Dexon suture in a buried interrupted fashion skin was closed skin staple s. Leg was then cleaned and dried and sterile dressing both Xeroform, 4 x 4's, sterile cast padding, Allan bandage were applied. Patient then transferred to the recovery room in stable condition. Patient tolerated procedure well there were no complications. Peyman Alarcon, my physician energy assistant, was present for the entire procedure. His assistance was essential and required for appropriate patient positioning, prepping and draping, surgical exposure, performing the technical details of the operation, placement the implants, closure of the wound, and placement of the sterile bandage. I attest to the content of the Intraoperative Record and any orders documented therein. Any exceptions are noted below.
--- NOTE | 2020-10-05 14:02 | XRay Report ---
XR knee LT 1 or 2V routine CLINICAL HISTORY: Surgical Post Op COMPARISON: 02/24/2019 DISCUSSION: There are postsurgical changes of a total left knee arthroplasty revision. There is a gary gstem tibial component. There is no dislocation. There are overlying skin yaz. There is gas prese nt within the soft tissues consistent with recent surgery IMPRESSION: Postsurgical changes of a total left knee arthroplasty revision ACT 112: Negative or not required by law. Electronically signed by: Vitor Bradford M.D. 10/05/2020 2:01 PM
[2020-10-05] MEDS ORDERED: NALOXONE HCL 0.4 MG/1 ML VIAL/CARP IV PRN (14:52)
[2020-10-05] MEDS ORDERED: METOCLOPRAMIDE HCL INJ 5 MG/ML 2 ML VIAL IV PRN (14:52)
[2020-10-05] MEDS ORDERED: GLUCOSE 40% GEL 15 GM TUBE PO PRN (14:52)
[2020-10-05] MEDS ORDERED: DEXTROSE 50% 50 ML SYRINGE IV PRN (14:52)
[2020-10-05] MEDS ORDERED: CARBOHYDRATES FOR HYPOGLYCEMIA PO PRN (14:52)
[2020-10-05] MEDS ORDERED: GLUCOSE 10 TABS/TUBE PO PRN (14:52)
[2020-10-05] MEDS ORDERED: TAMSULOSIN HCL 0.4 MG CAP PO PRN (14:52)
[2020-10-05] MEDS ORDERED: ALUMINUM/MAGNESIUM SUSP 30 ML UDC PO PRN (14:52)
[2020-10-05] MEDS ORDERED: HYDROmorphone INJ 1 MG/ML SYRINGE IV PRN (14:52)
[2020-10-05] MEDS ORDERED: bisacodyL 10 MG SUPP PR PRN (14:52)
[2020-10-05] MEDS ORDERED: GLUCAGON FOR INJ 1 MG VIAL SQ PRN (14:52)
[2020-10-05] MEDS ORDERED: NON-FORMULARY MEDICATION (Insulin Lispro [Humalog Kwikpen Insulin] 100 unit/mL insulin pen SQ SCH (14:52)
[2020-10-05] MEDS ORDERED: ONDANSETRON INJ 2 MG/ML 2 ML VIAL IV PRN (14:52)
[2020-10-05] MEDS ORDERED: MAGNESIUM HYDROXIDE SUSP 30 ML UDC PO PRN (14:52)
[2020-10-05] MEDS ORDERED: PHARMACY GLYCEMIC MGMT CONSULT PRN (15:11)
[2020-10-05] MEDS: Scopolamine CHECK PATCH PLACEMENT SCH ×2 (15:24→23:28)
[2020-10-05] MEDS: SODIUM CHLORIDE 0.9% 1000ML 1,000 ML IV SCH (15:24)
--- NOTE | 2020-10-05 15:29 | Anesthesiology Progress Note ---
Date of Service October 05, 2020 Anesthesia Post Procedure Vital Signs Vital Signs: Temp Pulse Pulse Pulse Pulse Resp BP 10/05/20 15:14 36.4 C L 57 L 16 10/05/20 14:45 36.6 C 62 16 10/05/20 14:30 60 18 10/05/20 14:20 59 L 18 10/05/20 14:10 65 17 10/05/20 14:00 61 16 10/05/20 13:50 58 L 17 10/05/20 13:40 37.3 C 62 18 10/05/20 09:32 36.8 C 69 18 156/77 H 10/05/20 09:01 36.8 C 20 L 20 156/76 H BP Pulse Ox 10/05/20 15:14 145/77 H 94 10/05/20 14:45 145/81 H 95 10/05/20 14:30 142/72 H 94 10/05/20 14:20 130/85 94 10/05/20 14:10 140/77 96 10/05/20 14:00 115/78 97 10/05/20 13:50 128/71 97 10/05/20 13:40 123/70 97 10/05/20 09:32 99 10/05/20 09:01 98 Pain Intensity Left Knee: Pain Intensity: 0 Transfer of Care Handoff Completed per policy Notes Mental Status: alert / awake / arousable and participated in evaluation Nausea / Vomiting: adequately controlled Pain: adequately controlled Airway Patency, RR, SpO2: stable & adequate BP & HR: stable & adequate Hydration State: stable & adequate Neuraxial Anesthesia: was administered and sensory block is resolving Anesthetic Complications: no major complications apparent and Pt Satisfied with anesthetic care
[2020-10-05] MEDS: KETOROLAC TROMETHAMINE 15 MG/ML VIAL IV SCH ×2 (17:00→23:28)
[2020-10-05] MEDS: ACETAMINOPHEN 500 MG TAB PO SCH (17:01)
[2020-10-05] MEDS: ceFAZolin 2000MG 2,000 MG/15 ML SYR IV SCH (17:02)
[2020-10-05] MEDS: INSULIN ASPART 100 UNITS/ML 3 ML PEN SC SCH ×2 (17:44→21:18)
[2020-10-05] MEDS: oxyCODONE HCL IR 5 MG TAB (IMMEDIATE RELEASE) PO PRN (17:48)
[2020-10-05] MEDS ORDERED: TRANEXAMIC ACID / 0.7% NACL 1,000 MG/100 ML BAG IV SCH (20:00)
[2020-10-05] MEDS ORDERED: NON-FORMULARY MEDICATION (Coenzyme Q10 [Coq-10] 100 mg Capsule) PO SCH (21:00)
[2020-10-05] MEDS: ASPIRIN 81 MG ECTAB PO SCH (21:16)
[2020-10-05] MEDS: DOCUSATE SODIUM 100 MG CAP PO SCH (21:16)
[2020-10-05] MEDS: ATORVASTATIN 40 MG TAB PO SCH (21:17)
[2020-10-05] MEDS: SENNA 8.6 MG TAB PO SCH (21:17)
[2020-10-05] MEDS: PROPRANOLOL HCL 60 MG LA CAP PO SCH (21:17)
[2020-10-05] MEDS: amLODIPine BESYLATE 5 MG TAB PO SCH (21:17)
[2020-10-05] MEDS: INSULIN GLARGINE SOLOSTAR 100 UNITS/ML 3 ML PEN SC SCH (21:19)
[2020-10-05] MEDS: TAPENTADOL HCL ER 50 MG TABCR PO SCH (21:22)
--- NOTE | 2020-10-05 21:27 | Pharmacy Report ---
Pharmacy Glycemic Short Note 2 - Date of Service October 05, 2020 - Glycemic Short BSG Results (Last 24 hours): 10/05/20 10/05/20 10/05/20 09:01 10:50 13:43 POC Glucose 202 H 170 H 152 H 10/05/20 10/05/20 17:12 20:55 POC Glucose 137 H 130 H OUTPATIENT ANTIDIABETIC REGIMEN: * Toujeo 100 units HS, humalog SSI (up to 20 units TID), metformin ASSESSMENT: * 65 year old now s/p total knee revision, POD 0. Pharmacy consulted for glycemic management postop. No steroids received preop. * Diet resumed at dinner - postop BSGs 130s. Will utilize stress of 2 dosing of total daily outpt insulin dose for CF/CR * PO intake on lower side at dinner - patient requiring ~160 units of insulin outpatient. Plan to have reduced scale for basal at hs PLAN FOR INPATIENT GLYCEMIC CONTROL: * Hold outpatient oral diabetes medications * Basal insulin * Lantus 60-80 units SQ HS * Bolus insulin * NovoLog per scale ACHS or Q6hrs while NPO * Goal Range: Low 110 mg/dL - High 140 mg/dL * Correction Factor: 10 mg/dL/unit * Nutritional / Prandial insulin per carb ratio of 1 unit per 4 grams CHO consumed PLAN FOR DISCHARGE: * tbd
[2020-10-06] MEDS: ceFAZolin 2000MG 2,000 MG/15 ML SYR IV SCH (01:45)
[2020-10-06] MEDS: SODIUM CHLORIDE 0.9% 1000ML 1,000 ML IV SCH (01:53)
[2020-10-06] MEDS: KETOROLAC TROMETHAMINE 15 MG/ML VIAL IV SCH ×4 (05:40→23:02)
[2020-10-06] MEDS: ACETAMINOPHEN 500 MG TAB PO SCH ×3 (05:40→21:11)
[2020-10-06 06:25] LABS: Hematocrit (blood only) 36.1 % (42-52); Hemoglobin 12.6 g/dL (14.0-18.0); Mean Corpuscular Hemoglobin 28.4 pg (25-34); Mean Corpuscular Hgb Conc 34.9 g/dL (32-36); Mean Corpuscular Volume 81.3 fL (80-100); Mean Platelet Volume 10.1 fL (7.4-10.4); Platelet Count 219 K/uL (130-400); RDW Coefficient of Variation 14.2 % (11.5-14.5); Red Blood Count 4.44 M/uL (4.7-6.1); White Blood Count 9.22 K/uL (4.8-10.8)
[2020-10-06 06:56] LABS: BUN Creatinine Ratio 13.3 (10-20); Calcium 8.6 mg/dl (8.5-10.1); Creatinine Clr Calc Pharmacy 88.8 ml/min; Est GFR (African American) 88.4; Est GFR (Non-African American) 76.2; Potassium 3.8 mmol/L (3.5-5.1)
[2020-10-06] MEDS: Scopolamine CHECK PATCH PLACEMENT SCH ×3 (07:52→23:02)
--- NOTE | 2020-10-06 08:17 | Anesthesiology Progress Note ---
Date of Service October 06, 2020 Anesthesia Post Procedure Vital Signs Vital Signs: Temp Pulse Pulse Pulse Pulse Resp BP 10/06/20 07:25 37.1 C 65 18 10/06/20 04:26 37 C 62 18 10/05/20 21:45 36.9 C 63 18 10/05/20 21:14 59 L 10/05/20 17:45 37.0 C 64 16 10/05/20 16:42 36.9 C 59 L 16 10/05/20 15:47 36.8 C 60 16 10/05/20 15:14 36.4 C L 57 L 16 10/05/20 14:45 36.6 C 62 16 10/05/20 14:30 60 18 10/05/20 14:20 59 L 18 10/05/20 14:10 65 17 10/05/20 14:00 61 16 10/05/20 13:50 58 L 17 10/05/20 13:40 37.3 C 62 18 10/05/20 09:32 36.8 C 69 18 156/77 H 10/05/20 09:01 36.8 C 20 L 20 156/76 H BP Pulse Ox 10/06/20 07:25 131/76 95 10/06/20 04:26 126/72 97 10/05/20 21:45 151/79 H 94 10/05/20 21:14 143/74 H 10/05/20 17:45 141/78 H 96 10/05/20 16:42 142/83 H 97 10/05/20 15:47 148/81 H 96 10/05/20 15:14 145/77 H 94 10/05/20 14:45 145/81 H 95 10/05/20 14:30 142/72 H 94 10/05/20 14:20 130/85 94 10/05/20 14:10 140/77 96 10/05/20 14:00 115/78 97 10/05/20 13:50 128/71 97 10/05/20 13:40 123/70 97 10/05/20 09:32 99 10/05/20 09:01 98 Pain Intensity Left Knee: Pain Intensity: 3 Notes Mental Status: alert / awake / arousable Nausea / Vomiting: adequately controlled Pain: adequately controlled Airway Patency, RR, SpO2: stable & adequate BP & HR: stable & adequate Hydration State: stable & adequate Neuraxial Anesthesia: was administered and sensory block resolved Anesthetic Complications: no major complications apparent and Pt Satisfied with anesthetic care
[2020-10-06] MEDS: ESCITALOPRAM OXALATE 20 MG TAB PO SCH (08:32)
[2020-10-06] MEDS: MAGNESIUM OXIDE 400 MG TAB PO SCH (08:32)
[2020-10-06] MEDS: ASPIRIN 81 MG ECTAB PO SCH ×2 (08:32→21:11)
[2020-10-06] MEDS: OLMESARTAN MEDOXOMIL 20 MG TAB PO SCH (08:32)
[2020-10-06] MEDS: INSULIN ASPART 100 UNITS/ML 3 ML PEN SC SCH ×4 (08:32→21:14)
[2020-10-06] MEDS: DOCUSATE SODIUM 100 MG CAP PO SCH ×2 (08:32→21:12)
[2020-10-06] MEDS: CYANOCOBALAMIN 500 MCG TABLET (VITAMIN B-12) PO SCH (08:32)
[2020-10-06] MEDS: MULTIVITAMIN TAB PO SCH (08:32)
[2020-10-06] MEDS: oxyCODONE HCL IR 5 MG TAB (IMMEDIATE RELEASE) PO PRN (08:33)
--- NOTE | 2020-10-06 08:36 | Progress Notes ---
DATE: 10/06/2020 SUBJECTIVE: A 65-year-old gentleman postop day 1 from left knee revision arthroplasty for aseptic loosening. He is doing well. Pain is controlled. No chest pain or shortness of breath. Not feeling dizzy or lightheaded. OBJECTIVE: VITAL SIGNS: Temperature 37.1. Vital signs stable. GENERAL: Shows a pleasant, middle-aged male. He is sitting up in his bedside chair, looks comfortable. EXTREMITIES: Examination of the left leg reveals the dressing to be in place. A little bit of bloody drainage. He can dorsiflex and plantarflex his foot appropriately. He is neurologically intact. LABORATORY DATA: Hemoglobin 12.6. Hematocrit 36.1. Electrolytes are stable. ASSESSMENT: A 65-year-old gentleman with multiple medical comorbidities postop day 1 from left total knee revision for aseptic loosening. He is doing quite well pain charles. He is neurologically intact. PLAN: 1. DVT prophylaxis including thigh-high TEDs, SCDs, and aspirin twice a day. 2. PT/OT. Weight bear as tolerated. Left total knee protocol. 3. Pain control, doing okay with current pain regimen. 4. Disposition: Plan to discharge him to home with some home health likely tomorrow if he does okay medically throughout the day.
[2020-10-06] MEDS: TAPENTADOL HCL ER 50 MG TABCR PO SCH ×2 (10:26→21:18)
--- NOTE | 2020-10-06 13:11 | Pharmacy Report ---
Pharmacy Glycemic Short Note 2 - Date of Service October 06, 2020 - Glycemic Short BSG Results (Last 24 hours): 10/05/20 10/05/20 10/05/20 13:43 17:12 20:55 Glucose POC Glucose 152 H 137 H 130 H 10/06/20 10/06/20 10/06/20 05:55 08:22 12:29 Glucose 179 H POC Glucose 180 H 205 H OUTPATIENT ANTIDIABETIC REGIMEN: * Toujeo 100 units HS, Humalog SSI (up to 20 units TID), metformin ASSESSMENT: 10/06/20 * Patient received reduced Lantus last night, blood sugar elevated today and rising at lunchtime, will give supplemental dose of Lantus now to make up for reduced dose last night, and increase scale at HS. * Tighten CR for better prandial coverage. 10/05/20 * 65 year old now s/p total knee revision, POD 0. Pharmacy consulted for glycemic management postop. No steroids received preop. * Diet resumed at dinner - postop BSGs 130s. Will utilize stress of 2 dosing of total daily outpt insulin dose for CF/CR * PO intake on lower side at dinner - patient requiring ~160 units of insulin outpatient. Plan to have reduced scale for basal at hs PLAN FOR INPATIENT GLYCEMIC CONTROL: * Hold outpatient oral diabetes medications * Basal insulin - increase: * Lantus 30 units SQ x1 dose now at 1300 then increase to * Lantus 90-110 units SQ HS * Bolus insulin * NovoLog per scale ACHS or Q6hrs while NPO * Goal Range: Low 110 mg/dL - High 140 mg/dL * Correction Factor: 10 mg/dL/unit * TIGHTEN: Nutritional / Prandial insulin per carb ratio of 1 unit per 3 grams CHO consumed PLAN FOR DISCHARGE: * TBD
[2020-10-06] MEDS ORDERED: INSULIN GLARGINE SOLOSTAR 100 UNITS/ML 3 ML PEN SC ONE (13:15)
[2020-10-06] MEDS: PROPRANOLOL HCL 60 MG LA CAP PO SCH (21:10)
[2020-10-06] MEDS: ATORVASTATIN 40 MG TAB PO SCH (21:11)
[2020-10-06] MEDS: SENNA 8.6 MG TAB PO SCH (21:11)
[2020-10-06] MEDS: INSULIN GLARGINE SOLOSTAR 100 UNITS/ML 3 ML PEN SC SCH (21:12)
[2020-10-06] MEDS: amLODIPine BESYLATE 5 MG TAB PO SCH (21:12)
[2020-10-07] MEDS: ACETAMINOPHEN 500 MG TAB PO SCH (05:01)
[2020-10-07] MEDS: KETOROLAC TROMETHAMINE 15 MG/ML VIAL IV SCH (05:01)
[2020-10-07] MEDS: DOCUSATE SODIUM 100 MG CAP PO SCH (08:11)
[2020-10-07] MEDS: Scopolamine CHECK PATCH PLACEMENT SCH (08:11)
[2020-10-07] MEDS: ESCITALOPRAM OXALATE 20 MG TAB PO SCH (08:12)
[2020-10-07] MEDS: OLMESARTAN MEDOXOMIL 20 MG TAB PO SCH (08:12)
[2020-10-07] MEDS: ASPIRIN 81 MG ECTAB PO SCH (08:12)
[2020-10-07] MEDS: MULTIVITAMIN TAB PO SCH (08:12)
[2020-10-07] MEDS: INSULIN ASPART 100 UNITS/ML 3 ML PEN SC SCH (08:12)
[2020-10-07] MEDS: MAGNESIUM OXIDE 400 MG TAB PO SCH (08:12)
[2020-10-07] MEDS: CYANOCOBALAMIN 500 MCG TABLET (VITAMIN B-12) PO SCH (08:12)
[2020-10-07] MEDS: TAPENTADOL HCL ER 50 MG TABCR PO SCH (08:14)
--- NOTE | 2020-10-07 09:02 | Progress Notes ---
DATE: 10/07/2020 SUBJECTIVE: A 65-year-old gentleman postop day 2 from a left knee revision arthroplasty. He is doing well. Pain is controlled. Therapy has gone well. No chest pain or shortness of breath. Not feeling dizzy or lightheaded. OBJECTIVE: VITAL SIGNS: Temperature 37.0. Vital signs stable. GENERAL: Shows a pleasant, middle-aged male. He is sitting up in his bedside chair, looks comfortable. EXTREMITIES: Examination of the left leg reveals the leg to be well aligned. Dressing is clean, dry and intact. Calf is soft and supple. He is neurologically intact. CULTURE RESULTS: Culture results are no growth to date. ASSESSMENT: A 65-year-old gentleman postop day 2 from a left revision knee arthroplasty, doing well. His pain is controlled. He is neurologically intact. PLAN: 1. DVT prophylaxis including thigh-high TEDs, SCDs, and aspirin twice a day. 2. PT/OT. Weight bear as tolerated. Left total knee protocol. 3. Pain control, doing well with current pain regimen. 4. Disposition: Plan to discharge to home with some home health likely later today.
--- NOTE | 2020-10-09 07:20 | Discharge Summary ---
Date of Service October 09, 2020 Discharge Data Consultations 10/05/20 14:52 Consult Case Management - Discharge Planning Routine Procedures Performed Operation Date: 10/05/20 10:40 Actual Procedures p Left Total Knee Tibial Revision(Left) - Skip Jackson MD Hospital Course (1) Status post revision of total replacement of left knee: This patient is a 65 year old male admitted on 10/05/20 and underwent total knee revision arthroplasty. He tolerated the procedure well and there were no complications. Transferred to the PACU post op and later to the orthopedic floor for further care. He was given ancef for antibiotic prophylaxis. He was also given ÓSCAR stockings, SCDs, and aspirin for DVT prophylaxis. Hemoglobin, hematocrit, and vital signs were monitored during his hospital stay and remained stable. Did not require any blood transfusions. There were no complications during his hospital stay. By post op day #2 the patient was tolerating a regular diet, pain was reasonably controlled with oral pain medicine, and he was participating in physical therapy. On post op day #2 the patient was discharged home and set up with home health care. He was given printed discharge instructions including prescriptions for extra strength tylenol, aspirin, and oxycodone. Continue physical therapy, weight bearing as tolerated. Continue ÓSCAR stockings. Follow up approximately 2 weeks post op or sooner if there are problems or concerns. Coding Level of Care Code None Diagnoses Status post revision of total replacement of left knee Z96.652
== END 2020-10-07 10:39 | disposition home health service (06) ==
LOC: ASU 08:28 → 3E 08:28

== ENCOUNTER 2023-06-30 19:21 | Observation (INO) ==
--- NOTE | 2023-06-30 19:26 | ED Triage Note ---
Date of Service June 30, 2023 History of Present Illness This patient was briefly evaluated while in triage. An abbreviated physical exam was performed. This patient is a 67-year-old Male who presents to the ED for evaluation of right arm and facial tingling and numbness. Tingling has improved. Numbness still present. 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 Physical Exam VITALS: Vitals are noted on the nurse's note and reviewed by myself. GENERAL: This is a 67 year old male, in no acute distress, nondiaphoretic, well- developed well-nourished. SKIN: No obvious rashes, edema, erythema HEAD: Normocephalic atraumatic. EYES: Conjunctivae without injection, sclerae without icterus. NECK: No JVD. LUNGS: No retractions or accessory muscle use. MUSCULOSKELETAL: Normal gait. NEURO: Patient was alert and oriented to person place and time. No focal neurological deficits. Initial orders for labs and / or imaging were placed and patient was placed in the waiting area until a bed is available. Please see further documentation for the full ED course. MDM / Impression Impression Impression: Stroke-like symptoms
--- OUTSIDE RECORDS SUMMARY | 2023-06-30 19:28 | External Medical Summary | Summary of Care ---
Author Name Unknown Organization [facility] Address [address] [place] [address] Phone [phone] Care Team Providers Care Computer Hardware Engineer Name Role Phone Lavelle Esparza MD Primary Care Provi verena Reason for Visit * Reason Onset Date Comments Fax 05/09/2023 Encounter Details Date Type Department Care Team Description 05/09/2023 Telephone Family [facility] [address] [place] [phone] Lavelle Esparza MD [address] [place] [phone] Fax Allergies Active Allergy Reactions Severity Noted Date Comments Lisinopril Cough 06/18/2022 Other reaction(s): cough Sulfa Antibiotics 05/28/2002 flu like sx Sulfadiazine Chills/rigors Low 06/18/2022 Other reaction(s): achy and cold symptoms documented as of this encounter (statuses as of 05/10/2023) Medications Medication Sig Dispensed Refills Start Date End Date Status ASPIRIN EC 81 MG PO TBEC 1 TABLET DAILY 0 0 04/12/2006 Active COQ-10 100 MG PO CAPS one tab daily 0 0 04/23/2006 Active vitamin b 12 (CYANOCOBALAMIN) 1000 MCG TABS Take 1 Tablet by mouth in the morning. 0 Active Cholecalciferol (VITAMIN D) 1000 UNIT Capsule Take 1 Capsule by mouth in the morning. 1,000 units in the summer and 2,000 units in the winter . 0 Active Potassium 99 MG Oral Tablet Take 1 Tablet by mouth in the morning. 0 Active Magnesium 250 MG Oral Tablet Take 1 Tablet by mouth in the morning. 0 Active Jardiance 25 MG Oral Tablet Take 1 Tablet by mouth daily. 0 05/29/2022 Active Isosorbide Mononitrate ER 60 MG Oral Tablet Extended Release 24 Hour (Imdur) Take 1 Tablet by mouth daily. 0 03/30/2022 Active Ozempic (2 MG/DOSE) 8 MG/3ML Subcutaneous Solution Pen-injector Inject 2 mg under the skin once a week. 0 04/27/2022 Active Lantus 100 UNIT/ML Subcutaneous Solution Inject 45-50 units under the skin once daily. 0 03/26/2022 Active metFORMIN HCl 1000 MG Oral Tablet (Glucophage) Take 1 Tablet by mouth 2 times a day with morning and evening meals. 0 Active [place]-3 Krill Oil 500 MG Oral Capsule Take 500 mg by mouth in the morning. 0 Active CPAP every night at bedtime. 0 Active Olmesartan Medoxomil 40 MG Oral Tablet (Benicar) Take 1 Tablet by mouth daily. 90 Tablet 3 01/24/2023 Active Gabapentin 300 MG Oral Capsule (Neurontin) TAKE ONE CAPSULE BY MOUTH IN THE MORNING AND ONE CAPSULE AT NOON AND ONE CAPSULE BEFORE BEDTIME 270 Capsule 0 12/27/2022 4 Active Additional Information Patient not taking.Reported on 05/03/2023 metFORMIN HCl 1000 MG Oral Tablet (Glucophage) TAKE ONE TABLET BY MOUTH TWICE A DAY 180 Tablet 1 08/01/2022 4 Active Insulin Glargine 100 UNIT/ML Subcutaneous Solution (Lantus) inject 70 units (0.7 mL) subcutaneously daily in the evening 70 mL 1 02/01/2023 Active amLODIPine Besylate 5 MG Oral Tablet (Norvasc) Take 1 Tablet by mouth daily. 90 Tablet 3 02/07/2023 Active Additional Information Patient taking differently: 10 mgOral Daily(Non-Specified), Reported on 05/03/2023 Rosuvastatin Calcium 20 MG Oral Tablet (Crestor) Take 1 Tablet by mouth in the morning. 90 Tablet 1 03/05/2023 Active Escitalopram Oxalate 20 MG Oral Tablet (Lexapro) Take 1 Tablet by mouth in the morning. 90 Tablet 3 03/21/2023 Active Propranolol HCl ER 60 MG Oral Capsule Extended Release 24 Hour (Inderal LA) TAKE 1 CAPSULE BY MOUTH DAILY 90 Capsule 3 03/21/2023 Active Pantoprazole Sodium 40 MG Oral Tablet Delayed Release (Protonix)Indicati ons:Epigastric pain Take 1 Tablet by mouth in the morning. 90 Tablet 3 05/03/2023 Active documented as of this encounter (statuses as of 05/10/2023) Active Problems Problem Noted Date Peripheral neuropathy 05/03/2023 Right carpal tunnel syndrome 05/03/2023 Chronic knee pain after total replacemen t of both knee joints 12/04/2022 Degeneration of intervertebral disc 03/2023 Dyslipidemia 12/04/2022 Lumbar radiculopathy 12/04/2022 Obesity 12/04/2022 Type 2 diabetes mellitus with hemoglobin A1c goal of less than 7.5% 12/04/2022 Metabolic syndrome 09/07/2022 Arteriosclerosis of coronary artery 05/29 Essential tremor 06/07/2022 Hypertension 06/07/2022 Mixed hyperlipidemia 06/07/2022 Obstructive sleep apnea syndrome 022 Osteoarthritis 06/07/2022 S/P CABG x 3 06/07/2022 S/P knee replacement 06/07/2022 Squamous cell carcinoma in situ (SCCIS) 06/07/2022 H/O TIA (transient ischemic attack) and stroke 06/07/2022 Gilbert syndrome 04/30/2022 documented as of this encounter (statuses as of 05/10/2023) Immunizations Name Administration Dates Next Due COVID-19 mRNA, LNP-s, No Pre serve, 2-Dose Series (Moderna) 09/18/2020,08/21/2020 DTaP Dipth/Tet/Acell Pertussis (Infanrix), Peds 07/03/2007 Hepatitis B, 20+ yrs 10/24/2012,06/26/2012,03/11 Pneumococcal Conjugate Vacc, 13 Valent (Prevnar) 05/23/2015 Pneumococcal Polysaccharide PPV23 (Pneumovax) 04/28/2004,04/28/2003 Seasonal Influenza, Quadriva lent Hd (Fluzone Hd) 05/23/2022 TDAP (age 10 and older)(Boostrix) 10/15/2017 Zoster Vaccine Recombinant (Shingrix) 05/21/2022 ,03/14/2022 documented as of this encounter Social History Tobacco Use Types Packs/Day Years Used Date Smoking Tobacco: Former Smokeless Tobacco: Never Alcohol Use Standard Drinks/Week Comments Not Currently 0 (1 standard drink = 0.6 oz pur e alcohol) occasional beer Food Insecurity Answer Date Recorded Within the past 12 months, y ou worried that your food would run out before you got money to buy more. Never true 09/07/2022 Within the past 12 months, t he food you bought just didn't last and you didn't have money to get more. Never true 09/07/2022 Sex Assigned at Date Recorded Male 09/07/2022 8:[address] Job Start Date Occupation Industry Not on file Not on file Not on file documented as of this encounter Miscellaneous Notes * Telephone Encounter - YUDY Neves - 05/10/2023 2:38 PM EDT EKG faxed to [facility] * Telephone Encounter - Clarissa Peterson LPN - 05/09/2023 9:44 AM EDT Please fax over as requested, thank you! * Telephone Encounter - YUDY He - 05/09/2023 8:09 AM EDT Caller requesting the following information to be faxed: Name/Company of caller: [facility] Information requested to be faxed: EKG results (needs actual EKG) Fax number: [phone] Attention to Name/Company: Any additional information?: YUDY He documented in this encounter Plan of Treatment Upcoming Encounters Date Type Specialty Care Team Description 07/04/2023 Telemedicine Psychology Lily Curry, BOMB TECHNICIAN [address] [place] [address] 08/06/2023 Office Visit Family Medicine Lavelle Esparza MD [address] [place] [phone] Scheduled Procedures Name Priority Associated Diagnoses Date/Ti me COLONOSCOPY FLEXIBLE PROXIMAL DIAGNOSTIC Recall History of colon polyps Health Maintenance Due Date Last Done Comments Hepatitis C Screening 1973 AAA Screening 10/01/2019 Pneumococcal Vaccine: 65+ Years (3 - PPSV23 or PCV20) 10/01/2019 05/23/2015, 04/28/2004, 04/28/2003 COVID-19 Vaccine ( - 2022- season) 2023 09/18/2020, 08/21/2020 Influenza Vaccine (FLU shot) (#1) 2023 05/23/2022, 05/23/2022, 04/13/2020, Additional history exists HbA1c 05/25/2023 11/23/2022, 06/13/2022 Albumin/Creatinine Ratio 06/13/2023 06/13/2022 COLONOSCOPY-ANNUAL AGES 18-100 01/09/2024 01/08/2023, 01/08/2023, 08/05/2006 DIABETES-EYE EXAM 02/05/2024 02/04/2023 Diabetic Foot Exam 03/12/2024 03/12/2023 Depression Screening 03/14/2024 03/14/2023 GFR 05/03/2024 05/03/2023, 02/26, 11/23/2022, Additional history exists DTaP,Tdap,and Td Vaccines (3 - Td or Tdap) 10/16/2027 10/15/2017, 07/03/2007 Hepatitis B Completed 10/24/2012, 05/30, 03/11/2012 Zoster Vaccines Completed 05/21/2022, 03/14/2022 Colonoscopy Discontinued 01/08/2023, 12/27, 08/05/2006 Colorectal Cancer Screening Discontinued Cologuard Discontinued Fecal Occult Blood Test Discontinued GARDASIL-HPV IMMUNIZATION SERIES Aged Out No longer eligible based on patient's age to complete this topic MENINGOCOCCAL (MENACTRA/MENVEO) Aged Out No longer eligible based on patient's age to complete this topic Sigmoidoscopy Discontinued documented as of this encounter Medical Devices Implanted Type Area Grill Cook Device Identifier Shelf Expiration Date Model / Serial / Lot Lens Intraoc 18.5 - [id number] - [id number] Implanted:Qty: 1 on 12/06/2022 by Aydin Vann MD at OR [facility] Left: Eye [employer]OM[employer] 09/26/2027 [id number] / [id number] / [id number] Lens Li61ao 13.00mm 19.00 - [id number] - [id number] Implanted:Qty: 1 on 01/03/2023 by Aydin Vann MD at OR [facility] Right: Eye BAUSCH & LOMB 07/28/2027 [id number] / [id number] / [id number] documented as of this encounter Advance Directives Latest Code Status on File Code Status Date Activated Date Inactivated Comments No Code 01/03/2023 7:34 AM 01/03/2023 1:34 PM This or verena reflects the patients wishes and were consensually agreed upon. Question Answer Comments Discussion of Advance Directives occurred with: Patient Does the patient have a Living Will? No Does the patient have Health Care Power of Escrow Agent? No Code Status History Code Status Date Activated Date Inactivated Comments No Code 12/06/2022 10:11 AM 12/06/2022 4:13 PM This order reflects the patients wishes and were consensually agreed upon. Question Answer Comments Discussion of Advance Directives occurred with: Patient Does the patient have a Living Will? No Does the patient have Health Care Power of Escrow Agent? No Care Teams Computer Hardware Engineer Relationship Specialty Start Date End Date Lavelle Esparza MD [address] [place] [phone] PCP - General Family Medicine 06/07/22 documented as of this encounter
--- OUTSIDE RECORDS SUMMARY | 2023-06-30 19:28 | External Medical Summary | Summary of Care ---
Author Name Unknown Organization [facility] Address [address] [place] [address] Phone [phone] Care Team Providers Care Optical Effects Line Up Person Name Role Phone Lavelle Esparza MD Primary Care Provi verena Reason for Visit * Reason Onset Date Comments Status Check Here for a 6 wee k return today.Patient is concerned about his balance.Noticed within the last month it has got way worse.Patient has been having a lot of heartburn lately would like to discuss other medication options/ higher dose of current medication Having same symptoms now that you had when you had to have bypass surgery Had a spell in the last week where his blood pressure was high Follow Up Medication Administration 05/03/2023 Flu an d/or Pneumo Inj Encounter Details Date Type Department Care Team Description 05/03/2023 Office Visit [address] [phone] Lavelle Esparza MD [address] [place] [phone] Epigastric pain*; S/P CABG x 3; Dyslipidemia Allergies Active Allergy Reactions Severity Noted Date Comments Lisinopril Cough 06/18/2022 Other reaction(s): cough Sulfa Antibiotics 05/28/2002 flu like sx Sulfadiazine Chills/rigors Low 06/18/2022 Other reaction(s): achy and cold symptoms documented as of this encounter (statuses as of 05/03/2023) Medications Medication Sig Dispensed Refills Start Date End Date Status ASPIRIN EC 81 MG PO TBEC 1 TABLET DAILY 0 0 04/12/20 06 Active COQ-10 100 MG PO CAPS one tab daily 0 0 04/23/20 06 Active vitamin b 12 (CYANOCOBALAMIN) 1000 MCG [...] Take 1 Tablet by mouth daily. 0 05/29/20 22 Active Isosorbide Mononitrate ER 60 MG Oral Tablet Extended Release 24 Hour (Imdur) Take 1 Tablet by mouth daily. 0 03/30/20 22 Active Ozempic (2 MG/DOSE) 8 MG/3ML Subcutaneous Solution Pen-injector Inject 2 mg under the skin once a week. 0 04/27/20 22 Active Lantus 100 UNIT/ML Subcutaneous Solution Inject 45-50 units under the skin once daily. 0 03/26/20 22 Active metFORMIN HCl 1000 MG Oral Tablet (Glucophage) Take 1 Tablet by mouth 2 times a day with morning and evening meals. 0 Active [place]-3 Krill Oil 500 MG Oral Capsule Take 500 mg by mouth in the morning. 0 Active CPAP every night at bedtime. 0 Active Olmesartan Medoxomil 40 MG Oral Tablet (Benicar) Take 1 Tablet by mouth daily. 90 Tablet 3 01/25/20 23 Active Gabapentin 300 MG Oral Capsule (Neurontin) TAKE ONE CAPSULE BY MOUTH IN THE MORNING AND ONE CAPSULE AT NOON AND ONE CAPSULE BEFORE BEDTIME 270 Capsule 0 12/28/19 23 024 Active Additional Information Patient not taking.Reported on 05/03/2023 metFORMIN HCl 1000 MG Oral Tablet (Glucophage) TAKE ONE TABLET BY MOUTH TWICE A DAY 180 Tablet 1 08/01/19 23 024 Active Insulin Glargine 100 UNIT/ML Subcutaneous Solution (Lantus) inject 70 units (0.7 mL) subcutaneously daily in the evening 70 mL 1 02/02/20 Active amLODIPine Besylate 5 MG Oral Tablet (Norvasc) Take 1 Tablet by mouth daily. 90 Tablet 3 02/08/20 Active Additional Information Patient taking differently: 10 mgOral Daily(Non-Specified), Reported on 05/03/2023 Rosuvastatin Calcium 20 MG Oral Tablet (Crestor) Take 1 Tablet by mouth in the morning. 90 Tablet 1 03/05/20 Active Escitalopram Oxalate 20 MG Oral Tablet (Lexapro) Take 1 Tablet by mouth in the morning. 90 Tablet 3 03/21/20 Active Propranolol HCl ER 60 MG Oral Capsule Extended Release 24 Hour (Inderal LA) TAKE 1 CAPSULE BY MOUTH DAILY 90 Capsule 3 03/21/20 Active Pantoprazole Sodium 40 MG Oral Tablet Delayed Release (Protonix)Indica tions:Epigastric pain Take 1 Tablet by mouth in the morning. 90 Tablet 3 05/03/20 Active buPROPion HCl ER (XL) 150 MG Oral Tablet Extended Release 24 Hour (Wellbutrin XL)Indications:R ecurrent major depressive disorder, in partial remission (HCC) Take 1 Tablet by mouth in the morning. 30 Tablet 1 02/16/20 23 023 Discontinued(Wi dication List Clean Up) Pantoprazole Sodium 20 MG Oral Tablet Delayed Release (Protonix) Take 1 Tablet by mouth in the morning. 30 minutes before the first meal of the day. Do not crush, split or chew the tablet. 90 Tablet 3 03/12/20 23 023 Discontinued documented as of this encounter (statuses as of 05/03/2023) Active Problems Problem Noted Date Peripheral neuropathy [...] as of this encounter (statuses as of 05/03/2023) Immunizations Name Administration Dates Next Due COVID-19 [...] Date Smoking Tobacco: Former Smokeless Tobacco: Never Tobacco Cessation:Counseling Given: Not Answered Alcohol Use Standard Drinks/Week Comments Not Currently [...] on file documented as of this encounter Last Filed Vital Signs Vital Sign Reading Time Taken Comments Blood Pressure 142/72 05/03/2023 3:04 PM EDT Pulse 72 05/03/2023 3:04 PM EDT Temperature 36.6 C (97.9 F) 05/03/2023 3:04 PM ED T Respiratory Rate 20 05/03/2023 3:04 PM EDT Oxygen Saturation 95% 05/03/2023 3:04 PM EDT Inhaled Oxygen Concentration - - Weight 108.9 kg (240 lb) 05/03/2023 3:04 PM EDT Height - - Body Mass Index 36.49 01/04/2023 2:53 PM EDT documented in this encounter Progress Notes * Lavelle Esparza MD - 05/03/2023 3:23 PM EDT Images from the original note were not included. History of Present Illness Brijesh Navarrete is a 67 year old male that presents for Status Check (Here for a 6 week return today./Patient is concerned about his balance./Noticed within the last month it has got way worse./Patient has been having a lot of heartburn lately would like to discuss other medication options/ higher dose of current medication /Having same symptoms now that you had when you had to have bypass surgery /Had a spell in the last week where his blood pressure was high), Follow Up, and Medication Administration (Flu and/or Pneumo Inj) 67-year-old male presents today with concerns of ongoing heartburn. He describes that taking Protonix did not improve his symptoms. He says that the symptoms coming go, but are happening on a daily basis. He denies any exertional component--the symptoms are made worse with exercise and they are notmade better by rest. He denies any shortness a breath or exercise intolerance. He denies any leg swelling Prior to having his CABG he did describe having similar symptoms of reflux symptoms, burning in hischest, but states that these symptoms were more constant. Physical Exam Vitals: 05/03/23 1504 Temp: 36.6 C (97.9 F) Pulse: 72 Resp: 20 SpO2: 95% BP: 142/72 BP Readings from Last 3 Encounters: 05/03/23 142/72 03/12/23 136/78 01/08/23 136/76 Wt Readings from Last 3 Encounters: 05/03/23 108.9 kg (240 lb) 03/12/23 106.2 kg (234 lb 3.2 oz) 01/04/23 104.3 kg (230 lb) BMI Readings from Last 3 Encounters: 05/03/23 36.49 kg/m 03/12/23 35.61 kg/m 01/04/23 34.97 kg/m Ht Readings from Last 3 Encounters: 01/04/23 1.727 m (5' 8") 01/03/23 1.727 m (5' 8") 12/03/22 1.727 m (5' 8") General; Normal cephalic, atraumatic Cardiology; Regular rate and rhythm, normal S1 S2, no murmurs, rubs or gallops, no peripheral edema Pulmonary; Clear to auscultation bilaterally, no rales, rhonchi or wheezing Neuro/psych; CN grossly intact, normal gait, answering questions appropriately, normal mood/affect I have reviewed the following results: CMP, Lipid Panel, and Hemoglobin A1C Assessment and Plan Epigastric pain (Primary) - XR CHEST 2 VIEWS - EKG; Future; Expected date: 05/03/2023 - CBC WITH WBC DIFFERENTIAL; Future; Expected date: 05/03/2023 - COMPREHENSIVE METABOLIC PANEL; Future; Expected date: 05/03/2023 - Pantoprazole Sodium 40 MG Oral Tablet Delayed Release (Protonix); Take 1 Tablet by mouth in the morning. S/P CABG x 3 Dyslipidemia Follow Up: Return in about 3 months (around 08/03/2023) for Return with Physician. | For: Return withPhysician Plan; patient is having epigastric pain which is persistent despite Protonix. No other concerning symptoms--normal exercise tolerance, no lower extremity edema, no pressure-like symptoms, no shortness a breath. He does have chronic orthostatics symptoms, but these have not been worsening. He notes that prior to his CABG he had similar symptoms of heartburn, but they were more constant. Today's EKG is within normal limits. I have placed a call to his right of way maintenance supervisor to see if we need to pursue a outpatient ACS workup, awaiting his response. I discussed with the patient the red flag symptoms to look outfor for ACS and to go to the emergency room with any concerns. --- Addendum--I spoke with the patient's right of way maintenance supervisor Dr. Morro Mills, he states that he will get the patient on the schedule next week for an outpatient visit. I called the patient reiterated the instructions and to be looking out for a call from the right of way maintenance supervisor office. Wrap-Up Time: I spent a total of 40-54 minutes (exact time 45 mins) on the date of service in preparation, delivery, and documentation of the care provided to Brijesh Navarrete excluding any time spent in the performance of separately billed services. documented in this encounter Nursing Notes * ENEDELIA Jacobo - 05/03/2023 3:08 PM EDT The patient has been properly identified by confirmation of name and date of . Chief Complaint Patient presents with Status Check Here for a 6 week return today. Patient is concerned about his balance. Noticed within the last month it has got way worse. Patient has been having a lot of heartburn lately would like to discuss other medication options/ higher dose of current medication Having same symptoms now that you had when you had to have bypass surgery Had a spell in the last week where his blood pressure was high Follow Up Flu Shot Ordered. documented in this encounter Plan of Treatment Upcoming Encounters Date Type Specialty Care Team Description 07/04/2023 Telemedicine Psychology Lily Curry, EXERCISE PHYSIOLOGIST CERTIFIED [address] [place] [address] 08/06/2023 Office Visit Family Medicine Lavelle Esparza MD [address] [place] [phone] Pending Results Name Type Priority Associated Diagnoses Date/Time XR CHEST 2 VIEWS Medical Imaging Routine Epigastric pain 05/03/2023 4:11 PM EDT CBC WITH WBC DIFFERENTIAL Lab Routine Epigastric pain 05/03/2023 4:35 PM EDT COMPREHENSIVE METABOLIC PANEL Lab Routine Epigastric pain 05/03/2023 4:35 PM EDT Scheduled Orders Name Type Priority Associated Diagnoses Orde r Schedule EKG EKG Routine Epigastric pain Expected: 05/03/2023 (Approximate), Expires: 06/03/2024 CBC WITH WBC DIFFERENTIAL Lab Routine Epigastric pain Expected: 05/03/2023 (Approximate), Expires: 05/03/2024 COMPREHENSIVE METABOLIC PANEL Lab Routine Epigastric pain Expected: 05/03/2023 (Approximate), Expires: 05/02/2024 Scheduled Procedures Name Priority Associated Diagnoses Date/Ti me COLONOSCOPY FLEXIBLE PROXIMAL DIAGNOSTIC Recall History of colon polyps Health Maintenance Due Date Last Done Comments Hepatitis C Screening 1973 AAA Screening 10/01/2019 Pneumococcal Vaccine: 65+ Years (3 - PPSV23 or PCV20) 10/01/2019 05/23/2015, 04/28/2004, 04/28/2003 COVID-19 Vaccine (3 - 2022- season) 2023 09/18/2020, 08/21/2020 Influenza Vaccine (FLU shot) (#1) 2023 05/23/2022, 05/23/2022, 04/13/2020, Additional history exists HbA1c 05/25/2023 11/23/2022, 06/13/2022 Albumin/Creatinine Ratio 06/13/2023 06/13/2022 COLONOSCOPY-ANNUAL AGES 18-100 01/09/2024 01/08/2023, 01/08/2023, 08/05/2006 DIABETES-EYE EXAM 02/05/2024 02/04/2023 Diabetic Foot Exam 03/12/2024 03/12/2023 GFR 03/12/2024 03/12/2023, 04/02/2023, 06/13/2022, Additional history exists Depression Screening 03/14/2024 03/14/2023 DTaP,Tdap,and Td Vaccines (3 - Td or [...] this encounter Medical Devices Implanted Type Area Cyber Defense Forensics Analyst Device Identifier Shelf Expiration Date Model / Serial / Lot Lens Intraoc 18.5 - [id number] - [id number] Implanted:Qty: 1 on 12/06/2022 by Aydin Vann MD at OR [facility] Left: Eye [employer]OMB 09/26/2027 [id number] / [id number] / [id number] Lens Li61ao 13.00mm 19.00 - [id number] - [id number] Implanted:Qty: 1 on 01/03/2023 by Aydin Vann MD at OR [facility] Right: Eye BAUSCH & LOMB 07/28/2027 [id number] / [id number] / [id number] documented as of this encounter Visit Diagnoses Diagnosis Epigastric pain- Primary Abdominal pain, epigastric S/P CABG x 3 Postsurgical aortocoronary bypass status Dyslipidemia Other and unspecified hyperlipidemia documented in this encounter Advance Directives Latest Code Status on File Code Status Date Activated Date Inactivated Comments No Code 01/03/2023 7:34 AM 01/03/2023 1:34 PM This or verena reflects the patients wishes and were consensually agreed upon. Question Answer Comments Discussion of Advance Directives occurred with: Patient Does the patient have a Living Will? No Does the patient have Health Care Power of Machine Shop Worker? No Code Status History Code Status Date Activated Date Inactivated Comments No Code 12/06/2022 10:11 AM 12/06/2022 4:13 PM This order reflects the patients wishes and were consensually agreed upon. Question Answer Comments Discussion of Advance Directives occurred with: Patient Does the patient have a Living Will? No Does the patient have Health Care Power of Machine Shop Worker? No Care Teams Optical Effects Line Up Person Relationship Specialty Start Date End Date Lavelle Esparza MD [address] [place] [phone] PCP - General Family Medicine 06/07/22 documented as of this encounter
--- OUTSIDE RECORDS SUMMARY | 2023-06-30 19:28 | External Medical Summary | Continuity of Care Document ---
Author Name Unknown Organization [facility] [address] [facility] Address [address] [place] [id number] Care Team Providers Care Form Builder Name Role Phone Lavelle Esparza Primary Care Physician [phone] [id number] Date(s): 05/09/23 - 05/09/23 [facility] [address], [address] [place] [address] [phone] Encounter Diagnosis HTN (hypertension)(Discharge Diagnosis) - 05/09/23 HLD (hyperlipidemia)(Discharge Diagnosis) - 05/09/23 Chest discomfort(Discharge Diagnosis) - 05/09/23 CAD in [place] artery(Discharge Diagnosis) - 05/09/23 Discharge Disposition: Home or Self Care Attending Physician: RICARDO Allred Sarah A Allergies, Adverse Reactions, Alerts Substance Reaction Severity Status primidone unknown Active sulfa drugs sweats chills fever Active Assessment and Plan Extracted from: Title:Cardiology Office Visit Note Author:RICARDO [address], Sarah A Date:05/09/23 HTN (hypertension) 1. Coronary artery disease status post coronary bypass grafting x3 with a MENEZES to the LAD, SVG to D1, and an SVG to the PDA with a residual 60% lesion in the circumflex, 04/2019. 2. Preop cardiac catheterization with an 80% mid LAD lesion, 80% diagonal lesion, 60% proximal left circumflex lesion, 80% distal circumflex lesion, and a 90% mid RCA lesion. b. Normal LV size and function by echo, 07/2019 without evidence of wall motion abnormalities. 3. Hyperlipidemia. 4. Hypertension. 5. Diabetes mellitus type 2. 6. Bilateral knee replacements. 7. Benign essential tremor. 8. Obstructive sleep apnea, tolerating CPAP. 9. Obesity. 10. No hemodynamically significant carotid stenoses preoperatively, April 2019. 11. TIA 07/[address] angiography of his head and neck with associated speech and left arm difficulties. 12. Status post implantable loop recorder 05/2020. Mr. Navarrete's chest discomfortresolved with increasinghis PPI. We will request a copy of the EKG he had at his PCPs office on Saturday. Is also reassuring that he did not have symptoms with activity. He did increase his amlodipine due to elevated blood pressures. Apparentlyhe was able to reduce his amlodipine at his last appointment with Dr. Mills. It is unclear why his blood pressurehas gone up but I did ask him to look at his food labels andmake sure he is maintaining a low-sodium diet of less than 2000 mg sodium per day. Additionally, amlodipine can worsen GERD symptoms. For now I will adda small dose of spironolactone to help bring his blood pressure down. Iffocusing on a low-sodium diet helps further reduce his blood pressure andwe need to come back down on his antihypertensive regimen, I would reducethe amlodipine first to help ameliorate GERD symptoms. He will have a BMP in10 days. Otherwise he is on appropriate CAD medications with ARB, statin, and baby aspirin. He will return to the clinic in 3 months Immunizations Given and Recorded Vaccine Date Status Refusal Reason SARS-CoV-2 (COVID-19) [id number] vaccine 1 08/21/20 Recorded pneumococcal 23-valent vaccine 04/18/20 Given pneumococcal 23-valent vaccine 04/28/04 Recorded pneumococcal 23-valent vaccine 2 04/28/04 Recorded pneumococcal 23-valent vaccine 3 04/28/03 Recorded influenza virus vaccine, inactivated 04/13/20 Give n influenza virus vaccine, inactivated 04/21/19 Give n influenza virus vaccine, inactivated 06/23/18 Give n influenza virus vaccine, inactivated 04/16/17 Give n influenza virus vaccine, inactivated 05/23/15 Give n influenza virus vaccine, inactivated 05/01/13 Give n influenza virus vaccine, inactivated 07/29/06 Stiven rded influenza virus vaccine, inactivated 07/29/06 Re corded tetanus/diphtheria/pertuss, acel (Tdap) 10/15/17 G iven pneumococcal 13-valent vaccine 05/23/15 Given hepatitis B adult vaccine 10/24/12 Given hepatitis B adult vaccine 06/26/12 Given hepatitis B adult vaccine 03/11/12 Given diphtheria/tetanus/pertuss, acel (DTaP) 07/03/07 R ecorded 1Result Comment: Pt stated he got the COVID Vaccine at [facility] 2Result Comment: 2017-10-15: Historical information-source unspecified 3Result Comment: 2017-10-15: Historical information-source unspecified 4Result Comment: 2017-10-15: Historical information-source unspecified Medications acetaminophen 500 mg oral tablet Start: 05/11/19 10:53:00 EDT, 2 tab, PO, As indicated, Note to Pharmacy: PRN Moderate post surgicalpain Start Date: 05/11/19 Status: Ordered amLODIPine 5 mg oral tablet Start: 02/07/23 14:40:00 EDT, 2 tab, PO, Daily, Disp# 90 tab, Refills: 3, Pharmacy: [facility] Start Date: 02/07/23 Status: Ordered aspirin 81 mg oral tablet Start: 01/06/15 8:08:00, 1 tab, PO, Daily, Disp# 30 tab, other Start Date: 01/06/15 Status: Ordered escitalopram 20 mg oral tablet Start: 01/10/22 15:37:00 EDT, See Instructions, Disp# 90 tab, Refills: 3, TAKE 1 TABLET BY MOUTH DAILY, Pharmacy: [facility] Start Date: 01/10/22 Status: Ordered gabapentin Start: 08/10/22 14:26:00 EST, 300 mg =, PO, tid Start Date: 08/10/22 Status: Ordered Imdur 60 mg oral tablet, extended release Start: 09/26/22 9:49:00 EST, 1 tab, PO, qAM, Disp# 90 tab, Refills: 3, Pharmacy: [id number] Start Date: 09/26/22 Status: Ordered Jardiance 25 mg oral tablet Start: 02/07/22 13:29:00 EDT, 1 tab, PO, Daily, Disp# 30 tab Start Date: 02/07/22 Status: Ordered Lantus Solostar Pen 100 units/mL subcutaneous solution Start: 08/10/21 13:27:00 EST, 40 units, subQ, Daily Start Date: 08/10/21 Status: Ordered metFORMIN 1000 mg oral tablet Start: 05/31/21 10:43:00 EDT, 1 tab, PO, bid, Disp# 270 tab, Refills: 1, Pharmacy: [facility] Start Date: 05/31/21 Status: Ordered Nature's Bomoisesy Red Krill Oil 500 mg oral capsule Start: 05/01/19 15:35:00 EDT, 1 cap, PO, bid Start Date: 05/01/19 Status: Ordered olmesartan 40 mg oral tablet Start: 01/10/22 15:37:00 EDT, See Instructions, Disp# 90 tab, Refills: 2, TAKE 1 TABLET BY MOUTH DAILY, Pharmacy: [facility] Start Date: 01/10/22 Status: Ordered Ozempic (1 mg dose) 4 mg/3 mL subcutaneous solution Start: 08/10/21 13:28:00 EST, 2 mg =, subQ, q7days Start Date: 08/10/21 Status: Ordered pantoprazole 40 mg oral delayed release tablet Start: 05/09/23 7:46:00 EDT, 1 tab, PO, Daily Start Date: 05/09/23 Status: Ordered propranolol 60 mg oral capsule, extended release Start: 03/21/23 16:44:00 EDT, See Instructions, Disp# 90 cap, Refills: 3, TAKE 1 CAPSULE BY MOUTH DAILY, Pharmacy: [facility] Start Date: 03/21/23 Status: Ordered rosuvastatin 20 mg oral tablet Start: 02/07/23 14:50:00 EDT, 1 tab, PO, qhs Start Date: 02/07/23 Status: Ordered spironolactone 25 mg oral tablet Start: 05/09/23 8:16:00 EDT, 0.5 tab, PO, Daily, Disp# 30 tab, Refills: 6, Pharmacy: [id number] Start Date: 05/09/23 Status: Ordered Mental Status 05/09/23 Barriers to Learning one year Vision imp airment Mandatory Health Literacy Documentation Yes Health Literacy Communication Barriers N ever Primary Language Croatian Problem List Condition Confirmation Course Effective Dates Status H ealth Status Informant AK (actinic keratosis) Confirmed Active Benign essential tremor Confirmed Active CAD in [place] artery Confirmed Active DEPRESSION, NOS Confirmed Active DIABETES MELLITUS WITHOUT MENTION OF COMPLICATION Confirmed Active DYSMETABOLIC SYNDROME X Confirmed Active Abnormal stress echo Confirmed Active Hx of transient ischemic attack (TIA) Confirmed Active S/P CABG x 3 Confirmed Active S/P knee replacement Confirmed Active Hypertension Confirmed Active MIXED HYPERLIPIDEMIA Confirmed Active Body mass index [BMI] 38.0-38.9, adult Confirmed Active YUDY - Obstructive sleep apnea Confirmed Active Osteoarthritis Confirmed Active Squamous cell carcinoma in situ Confirmed Active Weight disorder Confirmed Active Diagnosis Diagnosis Type Effective Dates Health Status Clinical Service Informant HTN (hypertension) Discharge Diagnosis 05/09/23 Non-Specified HLD (hyperlipidemia) Discharge Diagnosis 05/09/23 Non-Specified CAD in [place] artery Discharge Diagnosis 05/09/23 Non-Specified Chest discomfort Discharge Diagnosis 05/09/23 Non-Specified Procedures Procedure Date Related Diagnosis Body Site Status Cataract 1 12/06/22 Completed Diabetic eye examination 2 11/30/21 Completed Total replacement of left knee joint 10/05/[address] angio head with con 3 07/31/[address] angio neck with con 4 07/31/[address] of brain without contrast 5 07/31/19 Completed EKG 6 07/31/19 Completed Cardiac catheterisation- no stents 7 04/13/19 Completed Total replacement of left knee 02/24/19 Completed Total knee replacement- right 8 11/25/18 Completed Colonoscopy 9 11/12/17 Completed L2 L-3 discectomy 200507/29/05 Co mpleted Disc HNP L-5 removed 199807/29/98 Completed right nerve block 199507/29/95 Co mpleted 1left eye 2no retinopathy 3No significant stenosis, occlusion or aneurysm within the [place] 4No significant stenosis, occlusion or dissection identified within the carotid or vertebral arteries 5No acute intracranial abnormality 6+ sinus rhythm Normal QRS, SD and QT-c + T-wave inversions (in lead 1 and [place]); no ST depression and no ST elevation 7Multivessel coronary artery disease Mid LAD 80%, D1 80%, proximal LCx 60%, distal LCx 80%, mid RCA 90% lesions Left to right collateral flow Uncomplicated right radial access 8Total right knee arthroplasty see scanned report 9Repeat colonoscopy in 5 years. One 4mm polyp in the sigmoid colonoscopy, removed with cold snare. Resected & retrieved. Colon, Sigmoid, polypectomy- tubular adenoma. Vital Signs Most recent to oldest [Reference Range]: 1 Patient Weight 107.8 kg (05/09/23 7:49 AM) Heart Rate 70 bpm (05/09/23 7:49 AM) Respiratory Rate 18 br/min (05/09/23 7:49 AM) Blood Pressure 142/62mmHg (05/09/23 7:49 AM) BP Location # 1 Right Arm (05/09/23 7:49 AM) Social History Social History Type Response Tobacco 0 per day. 2 year(s) . Total pack years: 2. 1 Smoking Status Never smoked cigaret beltran Sex Male 1QUIT in 1975 Cardiology Outpatient Note * RICARDO Allred Sarah A: PERFORM, MODIFY, MODIFY Event Display: Cardiology Outpt Note Authored Date: Chief Complaint -1 month ago, chest pain, burning and headache. 3 weeks ago he increased his amlodipine to 10 mgdue to high BP and headache 1 week ago he increased the Pepcid to help with the heart burn most symptoms resolved, denies Palpitations, or heart racing, fat History of Present Illness Mr. Navarrete presents for evaluation of chest pain and hypertension. He was experiencing worsening GERD pain ongoing for weeks and was concerned it was angina as that is how he presented prior to his bypass surgery. He saw his PCPa week ago who did an EKG and increased his ppi. His GERD has resolvedover this week. 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 No GERD or chest painwith activity. No issues going up anddown his stairs. No edema. Weight has been stable. His blood pressures have been elevated over the last few weeks. He increased his amlodipine onhis own 3 weeks ago. He does not think he has been salt loading. No over the counter medications. Review of Systems All other systems reviewed and negative except as discussed in the HPI Physical Exam Vitals & Measurements HR:70(Monitored) RR:18 BP:142/62 SpO2:97% WT:107.800kg(Dosing) WT:107.8kg Physical Examination General: Alert and oriented, No acute distress. Respiratory: Lungs are clear to auscultation, Respirations are non-labored. Cardiovascular: Normal rate, Regular rhythm, No murmur, No edema, no carotid bruits to auscultation bilaterally. Integumentary: Warm, Dry, [place] Neurologic: Alert, Oriented. Cognition and Speech: Speech clear and coherent. Psychiatric: Cooperative, Appropriate mood & affect. Assessment/Plan HTN (hypertension) 1. Coronary artery disease status post coronary bypass grafting x3 with a MENEZES to the LAD, SVG toD1, and an SVG to the PDA with a residual 60% lesion in the circumflex, 04/2019. 2. Preop cardiac catheterization with an 80% mid LAD lesion, 80% diagonal lesion, 60% proximal left circumflex lesion, 80% distal circumflex lesion, and a 90% mid RCA lesion. b. Normal LV size and function by echo, 07/2019 without evidence of wall motion abnormalities. 3. Hyperlipidemia. 4. Hypertension. 5. Diabetes mellitus type 2. 6. Bilateral knee replacements. 7. Benign essential tremor. 8. Obstructive sleep apnea, tolerating CPAP. 9. Obesity. 10. No hemodynamically significant carotid stenoses preoperatively, April 2019. 11. TIA 07/[address] angiography of his head and neck with associated speech and left arm difficulties. 12. Status post implantable loop recorder 05/2020. Mr. Navarrete's chest discomfortresolved with increasinghis PPI. We will request a copy of the EKG he had at his PCPs office on Saturday. Is also reassuring that he did not have symptoms with activity. He did increase his amlodipine due to elevated blood pressures. Apparentlyhe was able to reducehis amlodipine at his last appointment with Dr. Mills. It is unclear why his blood pressurehasgone up but I did ask him to look at his food labels andmake sure he is maintaining a low-sodium diet of less than 2000 mg sodium per day. Additionally, amlodipine can worsen GERD symptoms. Fornow I will adda small dose of spironolactone to help bring his blood pressure down. Iffocusing on a low-sodium diet helps further reduce his blood pressure andwe need to come back down on hisantihypertensive regimen, I would reducethe amlodipine first to help ameliorate GERD symptoms. He will have a BMP in10 days. Otherwise he is on appropriate CAD medications with ARB, statin, and baby aspirin. He will return to the clinic in 3 months Problem List/Past Medical History Ongoing Abnormal stress echo AK (actinic keratosis) Benign essential tremor Body mass index [BMI] 38.0-38.9, adult CAD in [place] artery Degenerative disc disease DEPRESSION, NOS DIABETES MELLITUS WITHOUT MENTION OF COMPLICATION DYSMETABOLIC SYNDROME X Hx of transient ischemic attack (TIA) Hypertension Hypertriglyceridemia Lumbar radiculopathy MIXED HYPERLIPIDEMIA YUDY - Obstructive sleep apnea Osteoarthritis S/P CABG x 3 S/P knee replacement Squamous cell carcinoma in situ Weight disorder Historical Anxiety Anxiety disorder due to medical condition Chest discomfort Hypertensive urgency ITB syndrome Left hip pain Low back pain Need for influenza vaccination Need for prophylactic vaccination and inoculation against influenza OBESITY, UNSPECIFIED Pneumonia Preop testing Radicular pain Renal stone ROUTINE GENERAL MEDICAL EXAMINATION AT A HEALTH CARE FACILITY SOB (shortness of breath) Syncope Tendinopathy of left gluteus medius Procedure/Surgical History Cataract (12/06/2022)Diabetic eye examination (11/30/2021)Total replacement of left knee joint (10/05/2020)EKG (07/31/2019)CT angio neck with con (07/31/2019)CT angio head with con (07/31/2019)CT of brain without contrast (07/31/2019)Cardiac catheterisation- no stents (2018)Total replacement of left knee (02/24/2019)Total knee replacement- right (11/25/2018)Colonoscopy (11/12/2017)L2 L-3 discectomy 2005 (07/29/2005)Disc HNP L-5 removed 1998 (07/29/1998)right nerve block 1995 (07/29/1995) Medications acetaminophen(acetaminophen 500 mg oral tablet), 1000 mg= 2 tab, PO, As indicated amLODIPine(amLODIPine 5 mg oral tablet), 5 mg= 1 tab, PO, Daily, 3 refills aspirin(aspirin 81 mg oral tablet), 81 mg= 1 tab, PO, Daily empagliflozin(Jardiance 25 mg oral tablet), 25 mg= 1 tab, PO, Daily escitalopram(escitalopram 20 mg oral tablet), See Instructions, 3 refills gabapentin, 300 mg, PO, tid insulin glargine(Lantus Solostar Pen 100 units/mL subcutaneous solution), 40 units, subQ, Daily isosorbide mononitrate(Imdur 60 mg oral tablet, extended release), 60 mg= 1 tab, PO, qAM, 3 refills metFORMIN(metFORMIN 1000 mg oral tablet), 1000 mg= 1 tab, PO, bid, 1 refills olmesartan(olmesartan 40 mg oral tablet), See Instructions, 2 refills omega-3 polyunsaturated fatty acids(Stam[employer]'s Bounty Red Krill Oil 500 mg oral capsule), 500 mg= 1 cap, PO, bid pantoprazole(pantoprazole 40 mg oral delayed release tablet), 40 mg= 1 tab, PO, Daily propranolol(propranolol 60 mg oral capsule, extended release), See Instructions, 3 refills rosuvastatin(rosuvastatin 20 mg oral tablet), 20 mg= 1 tab, PO, qhs semaglutide(Ozempic (1 mg dose) 4 mg/3 mL subcutaneous solution), 2 mg, subQ, q7days spironolactone(spironolactone 25 mg oral tablet), 12.5 mg= 0.5 tab, PO, Daily, 6 refills Allergies primidoneunknown sulfa drugssweats, chills, fever Social History Smoking Status Never smoked cigarettes Alcohol - No Risk Type:Beer Frequency:1-2 times per month Average drinks per episode in last year:1 Employment/School Status: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 Breast cancer: Sister. Cancer: Daughter. Cancer of colon: Father. Colonic polyp: Sister and Sister. Dementia: Mother. Depression.: Daughter. Diverticulitis: Sister. Health Status Family Member(s) Electronic Signature on File CC: Howard Brower MD [address] [place] [id number] Electronically Reviewed/Signed by: RICARDO Marrero Author Signature Dt/Tm:05/09/2023 09:26 AM [facility] [place] [facility] Patient Care team information Care Team Personnel Name: MD Inocente, Howard Platt Position: Physician - Family Med Member Role: Lifetime Relationship Address: Address: [address] [place] [address] [place] Care Team Related Persons Name: NONA NAVARRETE Address: [address], [phone]
--- OUTSIDE RECORDS SUMMARY | 2023-06-30 19:28 | External Medical Summary | Continuity of Care Document ---
Author Name Unknown Organization [facility] [address] [place] [address] [place] [id number] Care Team Providers Care Line Supervisor Name Role Phone Lavelle Esparza Primary Care Physician [phone] [id number] - [facility]/23 [facility] [address] [facility] [place] - [address], [address], [address] [place] [address] [phone] Discharge Disposition: Home or Self Care Attending Physician: DO Mills Jason D Referring Physician: DO Mills Jason D Allergies, Adverse Reactions, Alerts Substance Reaction Severity Status primidone unknown Active sulfa drugs sweats chills fever Active Immunizations Given and Recorded Vaccine Date Status Refusal Reason SARS-CoV-2 (COVID-19) mRNA-[id number] vaccine 1 08/21/20 Recorded pneumococcal 23-valent vaccine [...] stated he got the COVID Vaccine at [facility] 2Result Comment: 2017-10-15: Historical information-source unspecified 3Result [...] Daily, Disp# 90 tab, Refills: 3, Pharmacy: [facility] Start Date: 02/07/23 Status: Ordered aspirin 81 mg oral tablet Start: 01/06/15 8:08:00, 1 tab, PO, Daily, Disp# 30 tab, other Start Date: 01/06/15 Status: Ordered escitalopram 20 mg oral tablet Start: 01/10/22 15:37:00 EDT, See Instructions, Disp# 90 tab, Refills: 3, TAKE 1 TABLET BY MOUTH DAILY, Pharmacy: [facility] Start Date: 01/10/22 Status: Ordered gabapentin Start: 08/10/22 14:26:00 EST, 300 mg =, PO, tid Start Date: 08/10/22 Status: Ordered Imdur 60 mg oral tablet, extended release Start: 09/26/22 9:49:00 EST, 1 tab, PO, qAM, Disp# 90 tab, Refills: 3, Pharmacy: [id number] Start Date: 09/26/22 Status: [...] bid, Disp# 270 tab, Refills: 1, [facility] Start Date: 05/31/21 Status: Ordered Nature's Bomoisesy Red Krill Oil 500 mg oral capsule Start: 05/01/19 15:35:00 EDT, 1 cap, PO, bid Start Date: 05/01/19 Status: Ordered olmesartan 40 mg oral tablet Start: 01/10/22 15:37:00 EDT, See Instructions, Disp# 90 tab, Refills: 2, TAKE 1 TABLET BY MOUTH DAILY, Pharmacy: [facility] Start Date: 01/10/22 Status: Ordered [...] TAKE 1 CAPSULE BY MOUTH DAILY, Pharmacy: [facility] Start Date: 03/21/23 Status: Ordered rosuvastatin 20 mg oral tablet Start: 02/07/23 14:50:00 EDT, 1 tab, PO, qhs Start Date: 02/07/23 Status: Ordered spironolactone 25 mg oral tablet Start: 05/09/23 8:16:00 EDT, 0.5 tab, PO, Daily, Disp# 30 tab, Refills: 6, Pharmacy: [id number] Start Date: 05/09/23 Status: Ordered Problem List Condition Confirmation Course Effective Dates Status H ealth Status Informant AK (actinic keratosis) Confirmed Active Benign essential tremor Confirmed Active CAD in [place] artery Confirmed Active DEPRESSION, NOS Confirmed Active DIABETES MELLITUS WITHOUT MENTION OF COMPLICATION Confirmed Active DYSMETABOLIC SYNDROME X Confirmed Active Abnormal stress echo Confirmed Active Hx of transient ischemic attack (TIA) Confirmed Active S/P CABG x 3 Confirmed Active S/P knee replacement Confirmed Active Hypertension Confirmed Active MIXED HYPERLIPIDEMIA Confirmed Active Body mass index [BMI] 38.0-38.9, adult Confirmed Active YUYD - Obstructive sleep apnea Confirmed Active Osteoarthritis Confirmed Active Squamous cell carcinoma in situ Confirmed Active Weight disorder Confirmed Active Procedures Procedure Date Related Diagnosis Body Site [...] significant stenosis, occlusion or aneurysm within the [place] 4No significant stenosis, occlusion or dissection identified within the carotid or vertebral arteries 5No acute intracranial abnormality 6+ sinus rhythm Normal QRS, [place] and QT-c + T-wave inversions (in lead [...] & retrieved. Colon, Sigmoid, polypectomy- tubular adenoma. Social History Social History Type Response Tobacco 0 per day. 2 year(s) . Total pack years: 2. 1 Smoking Status Never smoked cigaret beltran Sex Male 1QUIT in 1975 Cardiology * Event Display: Cardiac Device Check Authored Date: Please click on link to see image. Patient Care team information Care Team Personnel Name: MD Inocente, Howard Platt Position: Physician - Family Med Member Role: Lifetime Relationship Address: Address: [address] [place] [address] [place] Care Team Related Persons Name: NONA PAUL Address: [address], [id number]
--- OUTSIDE RECORDS SUMMARY | 2023-06-30 19:29 | External Medical Summary | Summary of Care ---
Author Name Unknown Organization [facility] Address [address] [place] [address] Phone [phone] Care Team Providers Care Bulk Gas Specialist Name Role Phone Lavelle Esparza MD Primary Care Provi verena Reason for Visit * Reason Comments Outpatient Testing Encounter Details Date Type Department Care Team Description 05/03/2023 Laboratory [facility] [phone] [id number] Epigastric pain Allergies Active Allergy Reactions Severity Noted Date [...] with morning and evening meals. 0 Active [place]-3 Krill Oil 500 MG Oral Capsule Take [...] on file documented as of this encounter Plan of Treatment Upcoming Encounters Date Type Specialty Care Team Description 07/04/2023 Telemedicine Psychology Lily Curry, MACHINE JOINER CEMENTER [address] [place] [address] 08/06/2023 Office Visit Family Medicine Lavelle Esparza MD [address] [place] [phone] Pending Results Name Type Priority Associated Diagnoses Date /Time CBC WITH WBC DIFFERENTIAL Lab Routine Epigastric pain 05/03/2023 4:35 PM EDT COMPREHENSIVE METABOLIC PANEL Lab Routine Epigastric pain 05/03/2023 4:35 PM EDT CBC Lab Routine Epigastric pain 05/03/2023 4:35 PM EDT DIFFERENTIAL, AUTOMATED Lab Routine Epigastric pain 05/03/2023 4:35 PM EDT Scheduled Procedures Name Priority Associated Diagnoses Date/Ti me COLONOSCOPY FLEXIBLE PROXIMAL DIAGNOSTIC Recall History of colon polyps Health Maintenance Due Date Last Done Comments Hepatitis C Screening 1973 AAA Screening 10/01/2019 Pneumococcal Vaccine: 65+ Years (3 - PPSV23 or PCV20) 10/01/2019 05/23/2015, 04/28/2004, 04/28/2003 COVID-19 Vaccine ( - season) 2023 09/18/2020, 08/21/2020 Influenza Vaccine (FLU shot) (#1) 2023 05/23/2022, 05/23/2022, 04/13/2020, Additional history exists HbA1c 05/25/2023 11/23/2022, 06/13/2022 Albumin/Creatinine Ratio 06/13/2023 06/13/2022 COLONOSCOPY-ANNUAL AGES 18-100 01/09/2024 01/08/2023, 01/08/2023, 08/05/2006 DIABETES-EYE EXAM 02/05/2024 02/04/2023 Diabetic Foot Exam 03/12/2024 03/12/2023 GFR 03/12/2024 03/12/2023, 10/28, 06/13/2022, Additional history exists Depression Screening 03/14/2024 [...] this encounter Medical Devices Implanted Type Area Lean Engineer Device Identifier Shelf Expiration Date Model / Serial / Lot Lens Intraoc 18.5 - [id number] - [id number] Implanted:Qty: 1 on 12/06/2022 by Aydin Vann MD at OR [facility] Left: Eye [employer] 09/26/2027 [id number] / [id number] / [id number] Lens Li61ao 13.00mm 19.00 - [id number] - [id number] Implanted:Qty: 1 on 01/03/2023 by Aydin Vann MD at OR [facility] Right: Eye [employer] 07/28/2027 [id number] / [id number] / [id number] documented as of this encounter Visit Diagnoses Diagnosis Epigastric pain Abdominal pain, epigastric documented in this encounter Advance Directives Latest [...] the patient have Health Care Power of Steel Spar Operator? No Code Status History Code Status Date Activated Date Inactivated Comments No Code 12/06/2022 10:11 AM 12/06/2022 4:13 PM This order reflects the patients wishes and were consensually agreed upon. Question Answer Comments Discussion of Advance Directives occurred with: Patient Does the patient have a Living Will? No Does the patient have Health Care Power of Steel Spar Operator? No Care Teams Bulk Gas Specialist Relationship Specialty Start Date End Date Lavelle [place] [phone] PCP - General Family Medicine 06/07/22 documented as of this encounter
--- OUTSIDE RECORDS SUMMARY | 2023-06-30 19:29 | External Medical Summary ---
Author Name Unknown Address Unknown Organization K01[place] [place] [facility] [address] [facility] [address] Laboratory Report Ordering Provider Test Date Status PLACIDO MACIAS 05/03/2023 16:35:29 Final Observation Date Value Abnormality Reference (Units ) Status WBC, Total 05/03/2023 16:35:29 6.54 4.00-10.80 (K/uL) Final RBC 05/03/2023 16:35:29 5.73 4.50-5.25 (M/uL) Final Hemoglobin 05/03/2023 16:35:29 16.1 14.0-16.8 (g/dL) Final HCT 05/03/2023 16:35:29 49.3 Above high normal 40.0-48.4 (%) Final MCV 05/03/2023 16:35:29 86.0 82.0-99.5 (fL) Final MCH 05/03/2023 16:35:29 28.1 27.0-34.0 (pg) Final MCHC 05/03/2023 16:35:29 32.7 32.0-36.0 (g/dL) Final RDW 05/03/2023 16:35:29 14.3 11.5-15.5 (%) Final Platelets 05/03/2023 16:35:29 224 140-400 (K/uL) Final MPV 05/03/2023 16:35:29 10.1 6.6-11.1 (fL) Final Nucleated erythrocytes/100 leukocytes [Ratio] in Blood by Automated count 05/03/2023 16:35:29 0 <=0 (/100 WBCs) Final Performing Location [facility] [place] [address] [facility] [address]
--- OUTSIDE RECORDS SUMMARY | 2023-06-30 19:29 | External Medical Summary | Summary of Care ---
Author Name Unknown Organization [facility] Address [address] [place] [address] Phone [phone] Care Team Providers Care Eligibility Consultant Name Role Phone Lavelle Esparza MD Primary [...] Department Care Team Description 05/03/2023 Office Visit [address] [phone] Lavelle Esparza MD [address] [place] [phone] Epigastric pain*; S/P CABG x 3; [...] with morning and evening meals. 0 Active [place]-3 Krill Oil 500 MG Oral Capsule Take [...] morning. 30 Tablet 1 02/16/20 23 023 Discontinued(Mt dication List Clean Up) Pantoprazole Sodium 20 [...] I have placed a call to his heel shaper to see if we need to pursue a outpatient ACS workup, awaiting his response. I discussed with the patient the red flag symptoms to look outfor for ACS and to go to the emergency room with any concerns. Wrap-Up Time: I spent a total of 40-54 minutes (exact time 45 mins) on the date of service in preparation, delivery, and documentation of the care provided to Brijesh Landon excluding any time spent in the performance [...] Team Description 07/04/2023 Telemedicine Psychology Lily Curry, TUBE CUTTER [address] [place] [address] 08/06/2023 Office Visit Family Medicine Lavelle Esparza MD [address] [place] [phone] Pending Results Name Type Priority Associated Diagnoses [...] 05/23/2015, 04/28/2004, 04/28/2003 COVID-19 Vaccine (3 - season) 2023 09/18/2020, 08/21/2020 Influenza Vaccine [...] this encounter Medical Devices Implanted Type Area Fish Agent Device Identifier Shelf Expiration Date Model / Serial / Lot Lens Intraoc 18.5 - [id number] - [id number] Implanted:Qty: 1 on 12/06/2022 by Aydin Vann MD at OR [facility] Left: Eye [employer] 09/26/2027 [id number] / [id number] / [id number] Lens Li61ao 13.00mm 19.00 - [id number] - [id number] Implanted:Qty: 1 on 01/03/2023 by Aydin Vann MD at OR [facility] Right: Eye [employer] 07/28/2027 [id number] / [id number] / [id number] documented as of this encounter Visit Diagnoses [...] the patient have Health Care Power of Contract Designer? No Code Status History Code Status Date Activated Date Inactivated Comments No Code 12/06/2022 10:11 AM 12/06/2022 4:13 PM This order reflects the patients wishes and were consensually agreed upon. Question Answer Comments Discussion of Advance Directives occurred with: Patient Does the patient have a Living Will? No Does the patient have Health Care Power of Contract Designer? No Care Teams Eligibility Consultant Relationship Specialty Start Date End Date [place] [phone] PCP - General Family Medicine 06/07/22 documented as of this encounter
--- OUTSIDE RECORDS SUMMARY | 2023-06-30 19:29 | External Medical Summary ---
Author Name Unknown Address Unknown Organization K01[place] [place] [address] [facility] [address] Laboratory Report Ordering Provider Test Date Status PLACIDO MACIAS 05/03/2023 16:35:29 Final Observation Date Value Abnormality Reference (Units ) Status SYNC LEUKOCYTES IN BLOOD BY AUTOMATED COUNT 05/03/2023 16:35:29 6.54 4.00-10.80 (K/uL) Final Segs 05/03/2023 16:35:29 50.7 40.0-75.0 (%) Final Lymphs % 05/03/2023 16:35:29 40.8 18.0-42.0 (%) Final Monos 05/03/2023 16:35:29 5.5 1.0-11.0 (%) Final Eosinophils 05/03/2023 16:35:29 1.7 0.0-6.0 (%) Final Basos 05/03/2023 16:35:29 1.1 0.0-2.0 (%) Final Immature Granulocyte, Percent 05/03/2023 16:35:29 0.2 0.0-2.0 (%) Final Absolute Segs 05/03/2023 16:35:29 3.32 1.80-7.70 (K/uL) Final Lymphs, absolute 05/03/2023 16:35:29 2.67 1.00-4.80 (K/ul) Final Monos, Abs 05/03/2023 16:35:29 0.36 0.00-1.10 (K/uL) Final Eos, Abs 05/03/2023 16:35:29 0.11 0.00-0.70 (K/uL) Final Basos, Abs 05/03/2023 16:35:29 0.07 0.00-0.20 (K/uL) Final Immature Granulocytes, Number 05/03/2023 16:35:29 0.01 0.00-0.20 (K/uL) Final Performing Location [facility] [place] [address] [facility] [address]
--- OUTSIDE RECORDS SUMMARY | 2023-06-30 19:29 | External Medical Summary | Continuity of Care Document ---
Author Name Unknown Organization [facility] [address] [place] [address] SACHIN DOEVR [phone] Care Team Providers Care Aquaculturist Name Role Phone Lavelle Esparza Primary Care Physician [phone] [id number] Date(s): [facility]/30/[facility] - [facility]30/23 [facility] [address] [facility] [place] - [address], [address] [place] [address] [phone] Discharge Disposition: Home or Self Care Attending Physician: DO Mills Jason D Referring Physician: DO Mills Jason D Allergies, Adverse Reactions, Alerts Substance Reaction Severity Status primidone unknown Active sulfa drugs sweats chills fever Active Immunizations Given and Recorded Vaccine Date Status Refusal Reason SARS-CoV-2 (COVID-19) mRNA-4889 vaccine 1 08/21/20 Recorded pneumococcal 23-valent vaccine [...] stated he got the COVID Vaccine at [facility] 2Result Comment: 2017-10-15: Historical information-source unspecified 3Result Comment: 2017-10-15: Historical information-source unspecified 4Result Comment: 2017-10-15: Historical information-source unspecified Medications acetaminophen 500 mg oral tablet Start: 05/11/19 10:53:00 EDT, 2 tab, PO, As indicated, Note to Pharmacy: PRN Moderate post surgicalpain Start Date: 05/11/19 Status: Ordered amLODIPine 5 mg oral tablet Start: 02/07/23 14:40:00 EDT, 1 tab, PO, Daily, Disp# 90 tab, Refills: 3, Pharmacy: [facility] Start Date: 02/07/23 Status: Ordered aspirin 81 mg oral tablet Start: 01/06/15 8:08:00, 1 tab, PO, Daily, Disp# 30 tab, other Start Date: 01/06/15 Status: Ordered escitalopram 20 mg oral tablet Start: 01/10/22 15:37:00 EDT, See Instructions, Disp# 90 tab, Refills: 3, TAKE 1 TABLET BY MOUTH DAILY, Pharmacy: [facility] Start Date: 01/10/22 Status: Ordered gabapentin Start: 08/10/22 14:26:00 EST, 300 mg =, PO, tid Start Date: 08/10/22 Status: Ordered Imdur 60 mg oral tablet, extended release Start: 09/26/22 9:49:00 EST, 1 tab, PO, qAM, Disp# 90 tab, Refills: 3, Pharmacy: [id number] Start Date: 09/26/22 Status: Ordered [...] bid, Disp# 270 tab, Refills: 1, Pharmacy: [facility] Start Date: 05/31/21 Status: Ordered [employer]'s Bomoises[employer] Red Krill Oil 500 mg oral capsule Start: 05/01/19 15:35:00 EDT, 1 cap, PO, bid Start Date: 05/01/19 Status: Ordered olmesartan 40 mg oral tablet Start: 01/10/22 15:37:00 EDT, See Instructions, Disp# 90 tab, Refills: 2, TAKE 1 TABLET BY MOUTH DAILY, Pharmacy: [facility] Start Date: 01/10/22 Status: Ordered Ozempic (1 mg dose) 4 mg/3 mL subcutaneous solution Start: 08/10/21 13:28:00 EST, 2 mg =, subQ, q7days Start Date: 08/10/21 Status: Ordered propranolol 60 mg oral capsule, extended release Start: 03/21/23 16:44:00 EDT, See Instructions, Disp# 90 cap, Refills: 3, TAKE 1 CAPSULE BY MOUTH DAILY, Pharmacy: [facility] Start Date: 03/21/23 Status: Ordered rosuvastatin 20 mg oral tablet Start: 02/07/23 14:50:00 EDT, 1 tab, PO, qhs Start Date: 02/07/23 Status: Ordered Problem List Condition Confirmation Course Effective Dates Status H ealt Status Informant [place] (actinic keratosis) Confirmed Active Benign essential tremor Confirmed Active CAD in [place] artery Confirmed Active DEPRESSION, NOS Confirmed Active [...] significant stenosis, occlusion or aneurysm within the [place] 4No significant stenosis, occlusion or dissection identified within the carotid or vertebral arteries 5No acute intracranial abnormality 6+ sinus rhythm Normal QRS, [place] and QT-c + T-wave inversions (in lead [...] team information Care Team Personnel Name: MD Brower Jonathan D Position: Physician - Family Med Member Role: Lifetime Relationship Address: Address: [address] [place] [address], [place] [address] [place] Care Team Related Persons Name: NONA PAUL Address: [place] [address]
--- OUTSIDE RECORDS SUMMARY | 2023-06-30 19:29 | External Medical Summary | Summary of Care ---
Author Name Unknown Organization [facility] Address [address] [place] [address] Phone [phone] Care Team Providers Care Elementary Education Teacher Name Role Phone Lavelle Esparza MD Primary Care [facility] Reason for Referral * Evaluate & Treat - Unlimited Visits (Within 10 days (routine)) - Authorized Specialty Diagnoses / Procedures Referred By Jason t Referred To Contact Psychology Diagnoses Current moderate episode of major depressive disorder without prior episode (HCC) Lavelle Esparza MD [address] [place] [phone] Referral ID Status Reason Start Date Expiration Date Visits Requested Visits Authorized [id number] Authorized Specialty Services Required 03/12/2023 999 999 Question Answer Referral Priority Within 10 days (routine) Is this referral for medication management? No Referral To [facility] Reason for Referral: Depression/Anxiety/Bipolar Specific Condition? Depression Comments Depression secondary to binge eating Reason for Visit * Reason Comments Follow Up Pt is here for a 3 m [facility] follow up Encounter Details Date Type Department Care Team Description 03/12/2023 Office Visit Family [address] [phone] Lavelle Esparza MD [address] [place] [phone] DM type 2 nursing care encounter (HCC)*; Current moderate episode of major depressive disorder without prior episode (HCC); Chronic diarrhea Allergies Active Allergy Reactions Severity Noted Date Comments Lisinopril Cough 06/18/2022 Other reaction(s): cough Sulfa Antibiotics 05/28/2002 flu like sx Sulfadiazine Chills/rigors Low 06/18/2022 Other reaction(s): achy and cold symptoms documented as of this encounter (statuses as of 03/19/2023) Medications Medication Sig Dispensed Refills Start Date End Date Status ASPIRIN EC 81 MG PO TBEC 1 TABLET DAILY 0 0 04/12/20 06 Active COQ-10 100 MG PO CAPS one tab daily 0 0 04/23/20 06 Active escitalopram (LEXAPRO) 20 MG Tablet Take 1 Tablet by mouth in the morning. 0 Active vitamin b 12 (CYANOCOBALAMIN) 1000 MCG [...] with morning and evening meals. 0 Active [place]-3 Krill Oil 500 MG Oral Capsule Take [...] 270 Capsule 0 12/28/19 23 024 Active metFORMIN HCl 1000 MG Oral Tablet (Glucophage) TAKE ONE TABLET BY MOUTH TWICE A DAY 180 Tablet 1 08/01/19 23 024 Active Propranolol HCl ER 60 MG Oral Capsule Extended Release 24 Hour (Inderal LA) TAKE ONE CAPSULE BY MOUTH EVERY DAY 90 Capsule 3 03/22/20 22 023 Active Insulin Glargine 100 UNIT/ML Subcutaneous Solution (Lantus) inject 70 units (0.7 mL) subcutaneously daily in the evening 70 mL 1 02/02/20 23 Active buPROPion HCl ER (XL) 150 MG Oral Tablet Extended Release 24 Hour (Wellbutrin XL)Indications:R ecurrent major depressive disorder, in partial remission (HCC) Take 1 Tablet by mouth in the morning. 30 Tablet 1 02/16/20 23 Active amLODIPine Besylate 5 MG Oral Tablet (Norvasc) Take 1 Tablet by mouth daily. 90 Tablet 3 02/08/20 23 Active Rosuvastatin Calcium 20 MG Oral Tablet (Crestor) Take 1 Tablet by mouth in the morning. 90 Tablet 1 03/05/20 23 Active Pantoprazole Sodium 20 MG Oral Tablet Delayed Release (Protonix) Take 1 Tablet by mouth in the morning. 30 minutes before the first meal of the day. Do not crush, split or chew the tablet. 90 Tablet 3 03/12/20 23 Active Propranolol HCl ER 60 MG Oral Capsule Extended Release 24 Hour (Inderal LA) Take 1 Capsule by mouth daily. 0 03/23/20 22 023 Discontinued(Me dication List Clean Up) amLODIPine Besylate 10 MG Oral Tablet (Norvasc) Take 1 Tablet by mouth daily. 0 04/13/20 22 023 Discontinued Vitamin D3 125 MCG (5000 UT) Oral Tablet Chewable Take 1 tablet by mouth once or twice daily 0 023 Discontinued(Me dication List Clean Up) Multivitamin-Min erals Oral Tablet Take 1 Tablet by mouth daily. 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 t [...] as of this encounter (statuses as of 03/19/2023) Immunizations Name Administration Dates Next Due COVID-19 mRNA, LNP-s, No Pre serve, 2-Dose Series (Moderna) 09/18/2020,08/21/2020 DTaP - Dipth/Tet/Acell Pertussis 07/03/2007 Hepatitis B, 20+ yrs 10/24/2012,06/26/2012,03/11 Pneumococcal [...] Sign Reading Time Taken Comments Blood Pressure 136/78 03/12/2023 3:17 PM EDT Pulse 82 03/12/2023 3:17 PM EDT Temperature 36.8 C (98.2 F) 03/12/2023 3:17 PM ED T Respiratory Rate 14 03/12/2023 3:17 PM EDT Oxygen Saturation 97% 03/12/2023 3:17 PM EDT Inhaled Oxygen Concentration - - Weight 106.2 kg (234 lb 3.2 oz) 03/12/2023 3:17 PM EDT Height - - Body Mass Index 35.61 01/04/2023 2:53 PM EDT documented in this encounter Patient Instructions * Patient Instructions* Tiff Isaacs LPN - 03/12/2023 3:20 PM EDT Diabetes: Keeping Feet Healthy Inspect your feet every day for signs of a problem. Diabetes can damage nerves in your feet and cause neuropathy. This condition makes it hard for you to feel injuries or sore spots. Diabetes can also change blood flow, making it harder for small problems, like a blister, to heal properly. In fact, minor injuries can quickly become serious infections that send you to the hospital. Practice self-care to protect your feet and keep them healthy. Take Special Care Inspect your feet daily for problems such as redness, blisters, cracks, dry skin, or numbness. Use a mirror to see the bottoms of your feet. Or, ask for help. Manage your diabetes. Monitor and control your blood sugar. Take all your medications as prescribed. Avoid walking barefoot, even indoors. Wash your feet with warm water and mild soap. Dry well, especially between toes. Dont treat corns or calluses yourself. Talk to your doctor or product safety expert (a doctor who specializes in foot care) if you need assistance trimming your toenails. Use moisturizing cream or lotion if you have dry skin, but dont use it between toes. Dont use heating pads on your feet. If you have neuropathy, you could get a burn and not feel it. Stop smoking. Smoking restricts blood flow and can make it harder for wounds to heal. Have Regular Checkups Foot problems can develop quickly. So be sure to follow your healthcare teams schedule for regular checkups. During office visits, take off your shoes and socks as soon as you get in the exam room. Ask your healthcare provider to examine your feet for problems. This will make it easier to find and treat small skin irritations before they get worse. Regular checkups can also help keep track of the blood flow and feeling in your feet. If you have neuropathy, you may need to have checkups more often. Wear Proper Footwear Wearing proper footwear is very important. If areas of your feet have been damaged by too much pressure, your healthcare provider may recommend changing your footwear. In some cases, avoiding high heels or tight work boots may be all thats needed. Or, your healthcare provider may recommend special shoes or custom inserts. These help protect your feet and keep existing irritations from getting worse. If you need special footwear, ask your healthcare provider if you qualify for [employer] diabetic shoe program. Make Sure Shoes and Socks Fit Any pair of shoes--new or old--should feel comfortable as soon as you put them on. There shouldnt be any rubbing when you walk. Wear the right shoe for any activity. For instance, a running shoe is designed to keep your feet injury-free while jogging. Buy shoes at the end of the day, when your feet are larger. Make sure they provide support without feeling too loose. Make sure your socks fit, t oo. Wear soft, seamless, well-padded socks for activity. Cotton or microfiber socks are best to help to absorb sweat. To protect your feet, avoid shoes that are open-toed or open-heeled. If you have questions about what kinds of shoes and socks are best, talk to your healthcare team. Get Regular Exercise Regular exercise improves blood flow in your feet. It also increases foot strength and flexibility.Gentle exercises, like walking or riding a stationary bicycle, are best. You can also do special foot exercises. Just be sure to talk with your healthcare provider before starting any exercise program. Also mention if any exercise causes pain, redness, or other signs of foot problems. Note: If you have any kind of break in the skin of your foot or ankle, keep the area clean. Then call your doctor--especially if the area doesnt appear to be healing. [id number] [employer], [address] [place] [address], [place] [address]. All rights reserved. This information is not intended as a substitute for professional medical care. Always follow your healthcare professional's instructions. documented in this encounter Progress Notes * Lavelle Esparza MD - 03/12/2023 4:12 PM EDT Images from the original note were not included. History of Present Illness Brijesh Navarrete is a 67 year old male that presents for Follow Up (Pt is here for a 3 month follow up) 67-year-old male presents today with 3 weeks of chronic diarrhea. Has also had proximally 3 days ofnausea 1 episode of vomiting. He denies any fevers or chills, he denies any melena or bright red blood. Describes having epigastric pain as well as periumbilical pain. Was started on Wellbutrin around the time that his symptoms began. He is being treated for depression in the setting of possible binge eating disorder. Is interested in seeing a therapist. Physical Exam Vitals: 03/12/23 1517 Temp: 36.8 C (98.2 F) Pulse: 82 Resp: 14 SpO2: 97% BP: 136/78 BP Readings from Last 3 Encounters: 03/12/23 136/78 01/08/23 136/76 01/03/23 131/73 Wt Readings from Last 3 Encounters: 03/12/23 106.2 kg (234 lb 3.2 oz) 01/04/23 104.3 kg (230 lb) 01/03/23 108 kg (238 lb) BMI Readings from Last 3 Encounters: 03/12/23 35.61 kg/m 01/04/23 34.97 kg/m 01/03/23 36.19 kg/m Ht Readings from Last 3 Encounters: 01/04/23 1.727 m (5' 8") 01/03/23 1.727 m (5' 8") 12/03/22 1.727 m (5' 8") General; Normal cephalic, atraumatic Abdomen; non-tender, non-distended, normal bowel sounds, no rebound tenderness, no rigidity, murphynegative, no HSM, Neuro/psych; CN grossly intact, normal gait, answering questions appropriately, normal mood/affect I have reviewed the following results: CMP, Hemoglobin A1C, and CBC Assessment and Plan DM type 2 nursing care encounter (HCC) (Primary) - DIABETES FOOT EXAM Current moderate episode of major depressive disorder without prior episode (HCC) - ADULT/PEDS PSYCHOLOGY REFERRAL OP Chronic diarrhea - COMPREHENSIVE METABOLIC PANEL; Future; Expected date: 03/12/2023 - CBC WITH WBC DIFFERENTIAL; Future; Expected date: 03/12/2023 - CLOSTRIDIUM DIFFICILE, PCR; Future; Expected date: 03/12/2023 - LIPASE; Future; Expected date: 03/12/2023 - GASTROINTESTINAL PATHOGEN PANEL, STOOL; Future; Expected date: 03/12/2023 - REGIONAL PARASITE ANTIGEN SCREEN; Future; Expected date: 03/12/2023 - FECAL LACTOFERRIN, EIA; Future; Expected date: 03/12/2023 Other orders - Pantoprazole Sodium 20 MG Oral Tablet Delayed Release (Protonix); Take 1 Tablet by mouth in the morning. 30 minutes before the first meal of the day. Do not crush, split or chew the tablet. Follow Up: Return in about 6 weeks (around 04/23/2023) for Return with Physician, Labs Today. | For:Return with Physician, Labs Today | Check-out note: Please schedule with psychology Benign exam, I suspect gastritis, possible that his diarrhea is also connected to recently startingWellbutrin. He will wean off Wellbutrin and start Protonix daily. In addition we will get labs and stool studies today. Follow up with me in 6 weeks. Wrap-Up Follow Up: Return in about 6 weeks (around 04/23/2023) for Return with Physician, Labs Today. | For:Return with Physician, Labs Today | Check-out note: Please schedule with psychology Time: I spent a total of 40-54 minutes (exact time 42 mins) on the date of service in preparation, delivery, and documentation of the care provided to Brijesh Navarrete excluding any time spent in the performance of separately billed services. * Tiff Isaacs LPN - 03/12/2023 3:20 PM EDT DM Foot Exam completed today. Provider aware. Tiff Isaacs LPN Socks and Shoes Removed for Annual Diabetic Foot Screening RIGHT FOOT: No Reddened, Cracking, Or Open Areas Noted. RIGHT Dorsalis Pedis Pulse: Palpable RIGHT Posterior Tibial Pulse: Palpable RIGHT Monofilament:Patient reports feeling monofilament pressure on plantar surface of foot LEFT FOOT: No Reddened, Cracking or Open Areas Noted. LEFT Dorsalis Pedis Pulse: Palpable LEFT Posterior Tibial Pulse: Palpable LEFT Monofilament:Patient reports feeling monofilament pressure on plantar surface of foot Do you need diabetic shoes: N/A documented in this encounter Nursing Notes * Tiff Isaacs LPN - 03/12/2023 3:11 PM EDT The patient has been properly identified by confirmation of name and date of . Chief Complaint Patient presents with Follow Up Pt is here for a 3 month follow up documented in this encounter Plan of Treatment Upcoming Encounters Date Type Specialty Care Team Description 04/23/2023 Office Visit Family Medicine Vilma, Lavelle Rodriguez MD [address] [place] [phone] 07/04/2023 Telemedicine Psychology Lily Curry, [facility] [address] [place] [address] Scheduled Orders Name Type Priority Associated Diagnoses Orde r Schedule CLOSTRIDIUM DIFFICILE, PCR Lab Routine Chronic diarrhea Expected: 03/12/2023 (Approximate), Expires: 03/11/2024 FECAL LACTOFERRIN, EIA Lab Routine Chronic diarrhea Expected: 03/12/2023 (Approximate), Expires: 03/11/2024 Scheduled Procedures Name Priority Associated Diagnoses Date/Ti id COLONOSCOPY FLEXIBLE PROXIMAL DIAGNOSTIC Recall Screen for colon cancer Scheduled Referrals Name Type Priority Associated Diagnoses Orde r Schedule ADULT/PEDS PSYCHOLOGY REFERRAL OP Referral Within 10 days (routine) Current moderate episode of major depressive disorder without prior episode (HCC) Ordered: 03/12/2023 Health Maintenance Due Date Last Done Comments Hepatitis C Screening 1973 Cologuard 10/01/1999 Fecal Occult Blood Test 10/01/1999 Sigmoidoscopy 10/01/1999 AAA Screening 10/01/2019 Pneumococcal Vaccine: 65+ Years (3 - PPSV23 or PCV20) 10/01/2019 05/23/2015, 04/28/2004, 04/28/2003 COVID-19 Vaccine (3 - Moderna series) 11/13/2020 09/18/2020, 08/21/2020 Influenza Vaccine (FLU shot) (#1) 2023 05/23/2022, 05/23/2022, 04/13/2020, Additional history exists HbA1c 05/25/2023 11/23/2022, 06/13/2022 Albumin/Creatinine Ratio 06/13/2023 06/13/2022 DIABETES-EYE EXAM 02/05/2024 02/04/2023 DIABETES-FOOT EXAM 03/12/2024 03/12/2023 GFR 03/12/2024 03/12/2023, 10/28, 06/13/2022, Additional history exists Depression Screening, Annual for Pts 12 and Over 03/14/2024 03/14/2023 DTaP,Tdap,and Td Vaccines (3 - Td or Tdap) 10/16/2027 10/15/2017, 07/03/2007 Colonoscopy 01/08/2033 01/08/2023, 12/27, 08/05/2006 Colorectal Cancer Screening 01/08/2033 Hepatitis B Completed 10/24/2012, 05/30, 03/11/2012 Zoster Vaccines Completed 05/21/2022, 03/14/2022 GARDASIL-HPV IMMUNIZATION SERIES Aged Out No longer eligible based on patient's age to complete this topic MENINGOCOCCAL (MENACTRA/MENVEO) Aged Out No longer eligible based on patient's age to complete this topic documented as of this encounter Medical Devices Implanted Type Area Physicist Nuclear Device Identifier Shelf Expiration Date Model / Serial / Lot Lens Intraoc 18.5 - [id number] - [id number] Implanted:Qty: 1 on 12/06/2022 by Aydin aVnn MD at OR [facility] Left: Eye [employer] 09/26/2027 [id number] / [id number] / [id number] Lens Li61ao 13.00mm 19.00 - [id number] - [id number] Implanted:Qty: 1 on 01/03/2023 by Aydin Vann MD at OR [facility] Right: Eye [employer] 07/28/2027 [id number] / [id number] / [id number] documented as of this encounter Results * REGIONAL PARASITE ANTIGEN SCREEN (03/13/2023 9:52 AM EDT) Cryptosporidium Antigen Result Negative Negative 03/14/2023 11:54 PM EDT [facility] Comment:Negative for Cryptos poridium Antigen. Giardia Antigen Result Negative Negative 03/14/2023 11:54 PM EDT [facility] Comment:Negative for Giardia Specific Antigen. Stool Stool specimen / Unknown Non-blood Collection / Unknown 03/13/2023 9:52 AM EDT 03/13/2023 9:52 AM EDT Lavelle Esparza MD LAB MICRO - GENERAL ORDERABLES Performing Organization Address [facility] Co de Phone Number LABORATORY [facility] [address] [place] [address] * LIPASE (03/12/2023 4:16 PM EDT) Pathologist [facility] Lipase 21 13 - 60 U/L 03/13/2023 2:43 AM EDT LABORATORY [facility] Blood Venous blood specimen / Unknown Venipuncture / Unknown 03/12/2023 4:16 PM EDT 03/12/2023 4:16 PM EDT Lavelle Esparza MD LAB BLOOD O RDERABLES Performing Organization Address [facility] de Phone Number LABORATORY [facility] [address] [place] [address] * (ABNORMAL) COMPREHENSIVE METABOLIC PANEL (03/12/2023 4:16 PM EDT) Pathologist [facility] BUN 21(H) 6 - 20 mg/dL 03/13/2023 2:43 AM EDT LABORATORY [facility] Creatinine 1.0 0.6 - 1.2 mg/dL 03/13/2023 2:43 AM EDT LABORATORY [facility] Estimated Glomerular Filtration Rate 87 >=60 mL/min 03/13/2023 2:43 AM EDT LABORATORY [facility] Comment:eGFR is calculated b ased on the CKD-EPI 2020 equation Sodium 141 135 - 146 mmol/L 03/13/2023 2:43 AM EDT LABORATORY C Potassium 4.5 3.5 - 5.1 mmol/L 03/13/2023 2:43 AM EDT LABORATORY C Chloride 106 98 - 107 mmol/L 03/13/2023 2:43 AM EDT LABORATORY C CO2 24 22 - 32 mmol/L 03/13/2023 2:43 AM EDT LABORATORY [facility] Anion Gap 11 7 - 15 mmol/L 03/13/2023 2:43 AM EDT [facility] Glucose 136(H) 70 - 120 mg/dL 03/13/2023 2:43 AM EDT [facility] Albumin 4.5 3.8 - 5.0 g/dL 03/13/2023 2:43 AM EDT [facility] AST 13 10 - 50 U/L 03/13/2023 2:43 AM EDT [facility] Alkaline Phosphatase 65 35 - 130 U/L 03/13/2023 2:43 AM EDT [facility] Bilirubin, Total 1.4(H) <=1.2 mg/dL 03/13/2023 2:43 AM EDT [facility] Calcium 8.8 8.4 - 10.2 mg/dL 03/13/2023 2:43 AM EDT [facility] Protein 6.5 6.0 - 8.3 g/dL 03/13/2023 2:43 AM EDT [facility] ALT 22 10 - 50 U/L 03/13/2023 2:43 AM EDT [facility] Blood Venous blood specimen / Unknown Venipuncture / Unknown 03/12/2023 4:16 PM EDT 03/12/2023 4:16 PM EDT Lavelle Esparza MD LAB BLOOD O RDERABLES LABORATORY [facility] [address] [place] [address] documented in this encounter Visit Diagnoses Diagnosis DM type 2 nursing care encounter (HCC)- Primary Type II or unspecified type diabetes mellitus without mention of complication, not stated as uncontrolled Current moderate episode of major depressive disorder without prior episode (HCC) Chronic diarrhea Diarrhea documented in this encounter Advance Directives Latest [...] the patient have Health Care Power of Pin Machine Operator? No Code Status History Code Status Date Activated Date Inactivated Comments No Code 12/06/2022 10:11 AM 12/06/2022 4:13 PM This order reflects the patients wishes and were consensually agreed upon. Question Answer Comments Discussion of Advance Directives occurred with: Patient Does the patient have a Living Will? No Does the patient have Health Care Power of Pin Machine Operator? No Care Teams Elementary Education Teacher Relationship Specialty Start Date End Date [place] [phone] PCP - General Family Medicine 06/07/22 documented as of this encounter
--- OUTSIDE RECORDS SUMMARY | 2023-06-30 19:29 | External Medical Summary ---
Author Name Unknown Address Unknown Organization [id number]:[facility]ATORY [facility] [address] [facility] [address] Laboratory Report Ordering Provider Test Date Status PLACIDO MACIAS 05/03/2023 16:35:29 Final Observation Date Value Abnormality Reference (Units ) Status BUN 05/03/2023 16:35:29 14 6-20 (mg/dL) Final Creatinine 05/03/2023 16:35:29 0.8 0.6-1.2 (mg/dL) Final Glomerular filtration rate/1.73 sq M.predicted [Volume Rate/Area] in Serum, Plasma or Blood by Creatinine-based formula (CKD-EPI) 05/03/2023 16:35:29 >90 >=60 (mL/min) Final eGFR is calculated based on the CKD-EPI 2020 equation SODIUM 05/03/2023 16:35:29 142 135-146 (m mol/L) Final Potassium 05/03/2023 16:35:29 4.0 3.5-5.1 (m mol/L) Final Cl 05/03/2023 16:35:29 105 98-107 (mm ol/L) Final CO2 05/03/2023 16:35:29 23 22-32 (mmo l/L) Final Anion gap 05/03/2023 16:35:29 14 7-15 (mmol /L) Final Glucose 05/03/2023 16:35:29 158 Above high normal 70 -120 (mg/dL) Final Albumin 05/03/2023 16:35:29 5.0 3.8-5.0 (g /dL) Final AST (Aspartate aminotransferase) 05/03/2023 16:35:29 30 10-50 (U/L) Fin al Alk Phos 05/03/2023 16:35:29 80 35-130 (U/ L) Final Bilirubin, Total 05/03/2023 16:35:29 1.1 <=1 .2 (mg/dL) Final Calcium 05/03/2023 16:35:29 9.6 8.4-10.2 ( mg/dL) Final Protein 05/03/2023 16:35:29 7.1 6.0-8.3 (g /dL) Final ALT (Alanine aminotransferase) 05/03/2023 16:35:29 25 10-50 (U/L) Denny cherry Performing Location [facility] [address] [facility] [address]
--- NOTE | 2023-06-30 20:00 | XRay Report ---
XR chest 1V portable HISTORY: neuro deficit, acute stroke suspected COMPARISON: Chest 05/09/2020. FINDINGS: There are low lung volumes. No pneumothorax. No pleural fusions. The heart remains mildly e nlarged. There are are poststernotomy changes. No new focal lung consolidations to suggest a pneumoni a. No evidence for pulmonary edema. No acute fractures. IMPRESSION: No acute process. ACT 112: Negative or not required by law. Electronically signed by: Peña Samayoa M.D. 06/30/2023 7:59 PM
[2023-06-30 20:05] LABS: Partial Thromboplastin Ratio 0.9; Partial Thromboplastin Time 25.7 Seconds (21.0-31.0); Prothrombin Time 11.1 Seconds (9.0-12.0)
[2023-06-30 20:21] LABS: Basophils # (auto) 0.03 K/uL (0.00-0.20); Basophils % (auto) 0.5 %; Eosinophils # (auto) 0.05 K/uL (0.00-0.50); Eosinophils % (auto) 0.9 %; Hematocrit (blood only) 45.3 % (42.0-52.0); Hemoglobin 15.1 g/dl (14.0-18.0); Immature Granulocytes # (auto) 0.01 K/uL (0.01-0.20); Immature Granulocytes % (auto) 0.2 %; Lymphocytes # (auto) 2.28 K/uL (1.20-3.40); Lymphocytes % (auto) 38.8 %; Mean Corpuscular Hemoglobin 27.5 pg (25.0-34.0); Mean Corpuscular Hgb Conc 33.3 g/dL (32.0-36.0); Mean Corpuscular Volume 82.4 fL (80.0-100.0); Monocytes # (auto) 0.31 K/uL (0.11-0.59); Monocytes % (auto) 5.3 %; Neutrophils % (auto) 54.3 %; Platelet Count 167 K/uL (130-400); RDW Coefficient of Variation 14.6 % (11.5-14.5); RDW Standard Deviation 43.5 fL (36.4-46.3); White Blood Count 5.88 K/ul (4.8-10.8)
[2023-06-30 20:36] LABS: Albumin Globulin Ratio 2.2 (0.9-2); Albumin Level 4.6 gm/dl (3.4-5.0); BUN Creatinine Ratio 17.8 (10-20); Bilirubin,Total 1.2 mg/dl (0.2-1.0); Calcium 9.2 mg/dl (8.6-10.3); Creatinine Clr Calc Pharmacy 116.5 ml/min; Est GFR (African American) 110.5 ml/min; Est GFR (Non-African American) 95.3 ml/min; Globulin 2.1 gm/dl (2.5-4.0); Magnesium 1.8 mg/dl (1.7-2.4); Potassium 3.6 mmol/L (3.5-5.1); Total Protein 6.7 gm/dl (6.0-8.3)
[2023-06-30 20:41] LABS: Troponin I High Sensitivity 12.3 pg/ml (0-20)
--- NOTE | 2023-06-30 20:43 | Emergency Department Note ---
Impression & Plan Stroke-like symptoms ED Provider Note NAME: MORRIS PAUL AGE: 67 SEX: Male INFORMANT: Patient ED PROVIDER(S): Simone Mujica MD CHIEF COMPLAINT: Strokelike symptoms PLAN: Disposition: Admitted Outpatient prescription management: none Referral: None MEDICAL DECISION MAKING: Patient presented because of strokelike symptoms right-sided facial numbness and arm tingling. His symptoms had resolved shortly after arrival. Stroke workup was ordered in triage. The patient did have a mild residual headache. Of note his blood pressure was significantly elevated on presentation. Without direct intervention his blood pressure did improve along with his resolution of symptoms. The patient has a nonfocal examination at this point in time. He has an NIH of 0. Workup was performed. Patient was given Tylenol for his mild residual headache. On reassessment the patient was doing well. Blood pressure was minimally elevated but he did not have any other episodes of the severe hypertension. His CT and CT angiography were negative. His symptoms are concerning for TIA, possibly from his hypertensive episode. Further management in the hospital will be necessary. No indication for TNK at this time. Patient in agreement with plan. Consultation was made with Dr. Yunier Samuels, [facility] hospitalist service. Case discussed and diagnostics were reviewed. Patient was evaluated in the ER admitted for further management. Care/management discussed with: Discussed with reimbursement manager Level of care consideration(s): After review of the information above and other included data, I feel the patient requires escalation of care to admission Triage Nursing notes: reviewed and agree them. Vital Signs: reviewed and remarkable for no significant abnormalities Additional History obtained from: Patient significant other regarding his history. TIA event 2019. Chronic Medical/Social Conditions affecting care: CAD Prior/ Outside/ External records reviewed: none Differential Diagnosis: CVA, TIA, complex migraine,Infection, dehydration, metabolic abnormality, hypo/hyperglycemia, electrolyte disturbance, anemia, hypoxia, cardiac sources, intracerebral event, toxicologic, neurologic, as well as other pathologies. Diagnostics, independently interpreted by me: ECG: Twelve-lead ECG reveals normal sinus rhythm at [address] laterally. No ST elevation or depression. When compared to 05/09/2020 there is no significant change including the lateral ST findings Cardiac Monitoring: Cardiac monitoring ordered by me: The patient was placed on continuous cardiac monitoring and observed. It revealed a normal sinus rhythm at 74 beats per minute without ectopy or evidence of dysrhythmia. Medical decision rules: none Imaging studies: CT and CT angiography of the head and neck is negative for acute stroke, vessel occlusion, aneurysm or hemorrhage. I refer you to the EMR for further details. HPI: 67 year old Male arrives for evaluation of strokelike symptoms. Patient states about an hour prior to arrival he developed right-sided facial tingling and right arm numbness and tingling. He did not have any weakness. Patient notes the symptoms have improved and have not resolved. Patient did have a mild headache that he rates as a 3 out of 10. He did take his aspirin this evening. Patient has a history of TIA in 2019. No history of stroke. Patient is not on any anticoagulation. No trauma. Pt denies LOC, fevers, chills, diaphoresis, visual changes, neck pain, chest pain, breathing difficulties, nausea, vomiting, abdominal pain, back pain, melena, hematochezia, urinary symptoms, weakness, lymphadenopathy, rash, or other complaints. PAST MEDICAL HISTORY: See Below, CAD PAST SURGICAL HISTORY: See Below, SOCIAL HISTORY: See Below, non-smoker HOME MEDICATIONS: See Below ALLERGIES: See Below VITALS: See Below PHYSICAL EXAMINATION: GENERAL: Awake, alert, well-appearing, in no distress HENT: Normocephalic, atraumatic. Oropharynx unremarkable. EYES: Normal conjunctiva. Sclera non-icteric. PERRLA. EOMI NECK: Inspection normal. Non-tender. Supple. No nuchal rigidity. FROM. No masses. RESPIRATORY: Clear to auscultation. No wheezes. No rales. Normal respiratory effort. CARDIAC: Normal rate. Normal rhythm. No murmurs. No rubs. Extremities warm and well perfused. Pulses equal. No JVD. GI: Soft, non-distended. No tenderness to palpation. No rebound or guarding. No masses. RECTAL: Deferred. MUSCULOSKELETAL: Atraumatic. Chest examination reveals no tenderness. The back is symmetrical on inspection without obvious abnormality. There is no CVA tenderness to palpation. No joint edema. LOWER EXTREMITIES: Calves are equal size bilaterally and non-tender. No edema. No discoloration. NEURO: Normal sensorium. No sensory or motor deficits noted. Cranial nerves II through XII intact. Speech normal. Normal rapid alternating movements. No drift. SKIN: No rash or jaundice noted. 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 cardio. Diabetes IDDM- glucose elevated recently- follows with endo routinely Dyslipidemia Essential tremor To bilateral hands - R>L GERD (gastroesophageal reflux disease) Well controlled and stable History of anxiety Hypertension Right carpal tunnel syndrome Sleep apnea CPAP Status post placement of implantable loop recorder Transient ischemic attack (TIA) Jul 2019. Seen in ED 07/31/19 for L handed weakness. Negative head CTA for acute intracranial abnormality. Another episode of stroke-like sx prompted automotive project engineer to order brain MRI 04/2020, which did show old lacunar infarct. Referred to neurology, who recommended patient proceed with cardiology's plan to implant loop recorder to assess for artial arrhythmias. Surgical History History of bilateral knee replacement History of colonoscopy History of lithotripsy History of loop recorder placed 05/2020 Dr Rajan to assess for arrhythmia as possible source for TIA/CVA occurring in July and March 2020. [employer] device. History of lumbar discectomy X3 History of right knee joint replacement 11/25/18: SAB x 1 at L4-L5 + PNB at [facility] S/P triple vessel bypass 04/2019 at [facility] and follows with dr raymond; denies sob with exertion Family History Mother Diabetes Macular degeneration Father Colorectal cancer Other Family history of colon cancer in father Social History Smoking Status: Never smoker Second Hand Exposure: No; Do You Dip or Chew Tobacco: No; Hx Alcohol Use: No Hx Substance Use: No Preferred Language: [place] Zealander Communication Ability: Effective Rn Bone Marrow Transplant Required: No Beliefs That Will Affect Care: None marital status: Current Living Situation: Spouse current occupation: retired Feels Safe at Home: Yes Assistive Devices: CPAP Allergies Allergies Allergy/AdvReac Type Severity Reaction Status Date / Time lisinopril [From Prinivil] Allergy Unknown Reaction Verified 06/30/23 20:18 unknown- pt unaware Sulfa (Sulfonamide AdvReac Intermediate ACHY AND Verified 06/30/23 20:18 Antibiotics) COLD SYMPTOMS sulfadiazine AdvReac Intermediate achy and Verified 06/30/23 20:18 cold symptoms Home Meds Home Medications Medication Instructions Recorded Confirmed propranolol 60 mg capsule,24 60 mg PO DAILY 07/31/19 06/30/23 hr,extended release escitalopram oxalate 20 mg tablet 20 mg PO QAM 08/24/19 06/30/23 (Lexapro) krill oil 500 mg capsule 500 mg PO QAM 08/24/19 06/30/23 magnesium 250 mg tablet 250 mg PO QAM 11/30/19 06/30/23 cyanocobalamin (vitamin B-12) 1,000 mcg PO QAM 05/02/20 06/30/23 1,000 mcg capsule blood sugar diagnostic (ThingMagicuch #10 ea 08/04/20 04/18/23 Verio test strips) lancets 30 gauge (ThingMagicTouch Delica #100 ea 08/04/20 04/18/23 Lancets) isosorbide mononitrate 60 mg 60 mg PO QAM 06/18/22 06/30/23 tablet,extended release 24 hr olmesartan 40 mg tablet 40 mg PO DAILY 06/18/22 06/30/23 insulin glargine 100 unit/mL 70 - 75 unit subcut QPM 02/12/23 06/30/23 subcutaneous solution (Lantus U-100 Insulin) empagliflozin 25 mg tablet 25 mg PO QAM 02/13/23 06/30/23 (Jardiance) amlodipine 5 mg tablet 10 mg PO DAILY 06/30/23 06/30/23 aspirin 81 mg tablet,delayed 81 mg PO DAILY 06/30/23 06/30/23 release cholecalciferol (vitamin D3) 25 25 - 50 mcg PO DAILY 06/30/23 06/30/23 mcg (1,000 unit) capsule (Vitamin D3) coenzyme Q10 100 mg capsule 100 mg PO DAILY 06/30/23 06/30/23 (CoQ-10) pantoprazole 40 mg tablet,delayed 40 mg PO QAM 06/30/23 06/30/23 release potassium citrate 99 mg capsule 99 mg PO DAILY 06/30/23 06/30/23 rosuvastatin 20 mg tablet 20 mg PO QAM 06/30/23 06/30/23 spironolactone 25 mg tablet 12.5 mg PO DAILY 06/30/23 06/30/23 Previous Rx's Medication Instructions Recorded Dexcom G6 Laboratory Courier (blood-glucose #1 ea 08/25/19 meter,continuous) Dexcom G6 Transmitter #1 ea 08/25/19 (blood-glucose transmitter) Dexcom G6 Sensor (blood-glucose #3 ea 08/28/19 sensor) BD Ultra-Fine Pen Needle 32 #400 ea 08/31/21 gauge x 5/32" (pen needle, diabetic) semaglutide 2 mg/dose (8 mg/3 mL) 2 mg (0.75 mL) subcut WK 90 days 01/01/23 subcutaneous pen injector #3 mL metformin 1,000 mg tablet 1,000 mg PO BID #180 tabs 01/31/23 insulin syringe-needle U-100 1 mL #100 ea 04/12/23 29 gauge x 1/2" (BD Insulin Syringe) Results & Data (ED) Vital Signs Vital Signs - 24 hr 06/30/23 19:24 06/30/23 20:14 06/30/23 20:30 Temperature 36.8 C Temperature Source Temporal Artery Scan Pulse Rate 81 72 77 Pulse Rate from SpO2 Sensor 73 76 Respiratory Rate 18 26 H 21 Respiratory Effort / Characteristics Non-Labored Spontaneous Respiratory Depth Normal Respiratory Pattern Regular Blood Pressure 205/102 H 165/94 H 163/90 H Blood Pressure Mean 136 117 114 Blood Pressure Position Sitting Pulse Oximetry 96 93 96 Oxygen Delivery Method Room Air Room Air Room Air Sepsis Recent Fever Within 48 Hours No Sepsis New/Unexplained Change in Mental Status N/A Sepsis Action Taken by Nursing No Action Required 06/30/23 21:07 06/30/23 21:30 Temperature Temperature Source Pulse Rate 72 74 Pulse Rate from SpO2 Sensor 71 75 Respiratory Rate 30 H 21 Respiratory Effort / Characteristics Respiratory Depth Respiratory Pattern Blood Pressure 173/79 H 162/98 H Blood Pressure Mean 110 119 Blood Pressure Position Pulse Oximetry 96 95 Oxygen Delivery Method Room Air Room Air Sepsis Recent Fever Within 48 Hours Sepsis New/Unexplained Change in Mental Status Sepsis Action Taken by Nursing Laboratory Data 06/30/23 19:26 06/30/23 19:26 Lab Results 06/30/23 06/30/23 06/30/23 Range/Units 19:26 19:34 20:01 WBC 5.88 (4.8-10.8) K/ul RBC 5.50 (4.70-6.10) M/uL Hgb 15.1 (14.0-18.0) g/dl Hct 45.3 (42.0-52.0) % MCV 82.4 (80.0-100.0) fL MCH 27.5 (25.0-34.0) pg MCHC 33.3 (32.0-36.0) g/dL RDW Std Deviation 43.5 (36.4-46.3) fL RDW Coeff of Esthela 14.6 H (11.5-14.5) % Plt Count 167 (130-400) K/uL MPV 10.0 (9.4-12.4) fL Immature Gran % (Auto) 0.2 % Neut % (Auto) 54.3 % Lymph % (Auto) 38.8 % [place] % (Auto) 5.3 % Eos % (Auto) 0.9 % Baso % (Auto) 0.5 % Neut # (Auto) 3.20 (1.40-6.50) K/uL Lymph # (Auto) 2.28 (1.20-3.40) K/uL [place] # (Auto) 0.31 (0.11-0.59) K/uL Eos # (Auto) 0.05 (0.00-0.50) K/uL Baso # (Auto) 0.03 (0.00-0.20) K/uL Immature Gran # (Auto) 0.01 (0.01-0.20) K/uL PT 11.1 (9.0-12.0) Seconds INR 1.0 (0.9-1.1) APTT 25.7 (21.0-31.0) Seconds PTT Ratio 0.9 Sodium 140 (136-145) mmol/L Potassium 3.6 (3.5-5.1) mmol/L Chloride 105 (98-107) mmol/L Carbon Dioxide 25 (21-32) mmol/L Anion Gap 10 (3-11) BUN 13 (6-23) mg/dl Creatinine 0.73 (0.6-1.4) mg/dl Est Cr Clr Drug Dosing 116.5 ml/min Est GFR ( Amer) 110.5 ml/min Est GFR (Non-Af Amer) 95.3 ml/min BUN/Creatinine Ratio 17.8 (10-20) Glucose 126 H (70-99(Fasting)) mg/dl Calcium 9.2 (8.6-10.3) mg/dl Magnesium 1.8 (1.7-2.4) mg/dl Total Bilirubin 1.2 H (0.2-1.0) mg/dl AST 21 (13-39) U/L ALT 19 (7-52) U/L Alkaline Phosphatase 63 (34-104) U/L Troponin I High Sens 12.3 (0-20) pg/ml Total Protein 6.7 (6.0-8.3) gm/dl Albumin 4.6 (3.4-5.0) gm/dl Globulin 2.1 L (2.5-4.0) gm/dl Albumin/Globulin Ratio 2.2 H (0.9-2) Blood Type O Positive Antibody Screen NEGATIVE Administered Medications Magnesium Sulfate/Dextrose (Magnesium Sulfate / D5w) 1 gm in 100 mls @ 50 mls/hr IV ONE ONE Stop: 07/01/23 01:14 Last Admin: 07/01/23 00:07 Dose: 50 mls/hr Documented By: CASSIDY Discontinued Medications Clopidogrel Bisulfate (Clopidogrel Bisulfate 75 Mg Tab) 75 mg PO NOW ONE Stop: 06/30/23 23:46 Last Admin: 07/01/23 00:07 Dose: 75 mg Documented By: CASSIDY Sodium Chloride (Nss) 500 mls @ 80 mls/hr IV .Q6H15M KEVIN Stop: 07/30/23 22:29 Last Admin: 06/30/23 23:15 Dose: Not Given Documented By: CASSIDY Ioversol (Optiray 320 125ml) 119 ml IV ONCE ONE Stop: 06/30/23 21:00 Last Admin: 06/30/23 20:59 Dose: 119 ml Documented By: NALINI Imaging Data Radiologist's Impression: Chest X-Ray 06/30/23 19:26 XR chest 1V portable HISTORY: neuro deficit, acute stroke suspected COMPARISON: Chest 05/09/2020. FINDINGS: There are low lung volumes. No pneumothorax. No pleural fusions. The heart remains mildly enlarged. There are are poststernotomy changes. No new focal lung consolidations to suggest a pneumonia. No evidence for pulmonary edema. No acute fractures. IMPRESSION: No acute process. ACT 112: Negative or not required by law. Electronically signed by: Peña Samayoa M.D. 06/30/2023 7:[address] 06/30/23 19:26 Exam(s): CT HEAD Without Contrast EXAM: CT Head Without Intravenous Contrast CLINICAL HISTORY: Reason for exam: neuro deficit, acute stroke suspected. TECHNIQUE: Axial computed tomography images of the head/brain without intravenous contrast. CTDI is 38.31 mGy and DLP is 702.46 mGy-cm. Automated exposure control was utilized for the study. A dose lowering technique was utilized adhering to the principles of ALARA. COMPARISON: No relevant prior studies available. FINDINGS: Brain: Unremarkable. No hemorrhage. No significant white matter disease. No edema. Ventricles: Unremarkable. No ventriculomegaly. Bones/joints: Unremarkable. No acute fracture. Soft tissues: Unremarkable. Sinuses: Unremarkable as visualized. No acute sinusitis. Mastoid air cells: Unremarkable as visualized. No mastoid effusion. IMPRESSION: Normal head/brain CT. Electronically signed by: Arian Price MD 06/30/23 21:59 PM Head CTA 06/30/23 19:26 Exam(s): CTA HEAD With Contrast IV Amt: 119 mL [id number] EXAM: CT Angiography Head With Intravenous Contrast CLINICAL HISTORY: Reason for exam: neuro deficit, acute stroke suspected. TECHNIQUE: Axial computed tomographic angiography images of the head with intravenous contrast. CTDI is 71.08 mGy and DLP is 1283.61 mGy-cm. Automated exposure control was utilized for the study. A dose lowering technique was utilized adhering to the principles of ALARA. MIP reconstructed images were created and reviewed. CONTRAST: Patient received 119 mL [id number] of IV contrast COMPARISON: No relevant prior studies available. FINDINGS: Right internal carotid artery: No acute findings. Intracranial segment is patent with no significant stenosis. No aneurysm. Right anterior cerebral artery: Unremarkable. No occlusion or significant stenosis. No aneurysm. Right middle cerebral artery: Unremarkable. No occlusion or significant stenosis. No aneurysm. Right posterior cerebral artery: Unremarkable. No occlusion or significant stenosis. No aneurysm. Right vertebral artery: Unremarkable as visualized. Left internal carotid artery: No acute findings. Intracranial segment is patent with no significant stenosis. No aneurysm. Left anterior cerebral artery: Unremarkable. No occlusion or significant stenosis. No aneurysm. Left middle cerebral artery: Unremarkable. No occlusion or significant stenosis. No aneurysm. Left posterior cerebral artery: Unremarkable. No occlusion or significant stenosis. No aneurysm. Left vertebral artery: Unremarkable as visualized. Basilar artery: Unremarkable. No occlusion or significant stenosis. No aneurysm. IMPRESSION: Normal head CTA. Electronically signed by: Arian Price MD 06/30/23 22:00 PM Neck CTA 06/30/23 19:26 Exam(s): CTA NECK With Contrast IV Amt: 119 mL [id number] EXAM: CT Angiography Neck With Intravenous Contrast CLINICAL HISTORY: Reason for exam: neuro deficit, acute stroke suspected. TECHNIQUE: Routine carotid CT angiography protocol was performed with intravenous contrast. NASCET criteria using the distal ICAs for comparison were used for evaluation of stenoses. CTDI is 71.08 mGy and DLP is 1283.61 mGy-cm. Automated exposure control was utilized for the study. A dose lowering technique was utilized adhering to the principles of ALARA. MIP reconstructed images were created and reviewed. CONTRAST: Patient received 119 mL of IV contrast COMPARISON: None. FINDINGS: VASCULATURE: Right common carotid artery: Unremarkable. No occlusion or significant stenosis. No dissection. Right internal carotid artery: Unremarkable. Extracranial segment is patent with no occlusion or significant stenosis. No dissection. Right external carotid artery: Unremarkable. No occlusion. Right vertebral artery: Unremarkable. No occlusion or significant stenosis. No dissection. Left common carotid artery: Unremarkable. No occlusion or significant stenosis. No dissection. Left internal carotid artery: Unremarkable. Extracranial segment is patent with no occlusion or significant stenosis. No dissection. Left external carotid artery: Unremarkable. No occlusion. Left vertebral artery: Unremarkable. No occlusion or significant stenosis. No dissection. NECK: Bones/joints: Unremarkable. No acute fracture. Soft tissues: Unremarkable. Lung apices: Clear. CAROTID STENOSIS REFERENCE USING NASCET CRITERIA: % ICA stenosis = (1 - narrowest ICA diameter/diameter of distal cervical ICA) x 100. Mild - <50% stenosis. Moderate - 50-69% stenosis. Severe - 70-94% stenosis. Near occlusion - 95-99% stenosis. Occluded - 100% stenosis. IMPRESSION: Negative CTA neck. Electronically signed by: Arian Price MD 06/30/23 22:00 PM Discharge Plan Visit Data Chief Complaint: Neuro Symptoms/Deficit Stated Complaint: RIGHT ARM AND FACIAL NUMBNESS, HEADACHE ED Provider: Simone Mujica Discharge Problem: Stroke-like symptoms Discharge Instructions Interventions: ED Discharge Assessment Last Done: 07/01/23 00:34
[2023-06-30] MEDS ORDERED: OPTIRAY 320 125ml IV ONE (20:59)
--- NOTE | 2023-06-30 22:00 | CT Scan Report ---
Exam(s): CT HEAD Without Contrast EXAM: CT Head Without Intravenous Contrast CLINICAL HISTORY: Reason for exam: neuro deficit, acute stroke suspected. TECHNIQUE: Axial computed tomography images of the head/brain without intravenous contrast. CTDI is 38.31 mGy and DLP is 702.46 mGy-cm. Automated exposure control was utilized for the study. A dose lowering technique was utilized adhering to the principles of ALARA. COMPARISON: No relevant prior studies available. FINDINGS: Brain: Unremarkable. No hemorrhage. No significant white matter disease. No edema. Ventricles: Unremarkable. No ventriculomegaly. Bones/joints: Unremarkable. No acute fracture. Soft tissues: Unremarkable. Sinuses: Unremarkable as visualized. No acute sinusitis. Mastoid air cells: Unremarkable as visualized. No mastoid effusion. IMPRESSION: Normal head/brain CT. Electronically signed by: Arian Price MD 06/30/23 21:59 PM
--- NOTE | 2023-06-30 22:00 | CT Scan Report ---
Exam(s): CTA NECK With Contrast IV Amt: 119 mL [id number] EXAM: CT Angiography Neck With Intravenous Contrast CLINICAL HISTORY: Reason for exam: neuro deficit, acute stroke suspected. TECHNIQUE: Routine carotid CT angiography protocol was performed with intravenous contrast. NASCET criteria using the distal ICAs for comparison were used for evaluation of stenoses. CTDI is 71.08 mGy and DLP is 1283.61 mGy-cm. Automated exposure control was utilized for the study. A dose lowering technique was utilized adhering to the principles of ALARA. MIP reconstructed images were created and reviewed. CONTRAST: Patient received 119 mL of IV contrast COMPARISON: None. FINDINGS: VASCULATURE: Right common carotid artery: Unremarkable. No occlusion or significant stenosis. No dissection. Right internal carotid artery: Unremarkable. Extracranial segment is patent with no occlusion or significant stenosis. No dissection. Right external carotid artery: Unremarkable. No occlusion. Right vertebral artery: Unremarkable. No occlusion or significant stenosis. No dissection. Left common carotid artery: Unremarkable. No occlusion or significant stenosis. No dissection. Left internal carotid artery: Unremarkable. Extracranial segment is patent with no occlusion or significant stenosis. No dissection. Left external carotid artery: Unremarkable. No occlusion. Left vertebral artery: Unremarkable. No occlusion or significant stenosis. No dissection. NECK: Bones/joints: Unremarkable. No acute fracture. Soft tissues: Unremarkable. Lung apices: Clear. CAROTID STENOSIS REFERENCE USING NASCET CRITERIA: % ICA stenosis = (1 - narrowest ICA diameter/diameter of distal cervical ICA) x 100. Mild - <50% stenosis. Moderate - 50-69% stenosis. Severe - 70-94% stenosis. Near occlusion - 95-99% stenosis. Occluded - 100% stenosis. IMPRESSION: Negative CTA neck. Electronically signed by: Arian Price MD 06/30/23 22:00 PM
--- NOTE | 2023-06-30 22:01 | CT Scan Report ---
Exam(s): CTA HEAD With Contrast IV Amt: 119 mL [id number] EXAM: CT Angiography Head With Intravenous Contrast CLINICAL HISTORY: Reason for exam: neuro deficit, acute stroke suspected. TECHNIQUE: Axial computed tomographic angiography images of the head with intravenous contrast. CTDI is 71.08 mGy and DLP is 1283.61 mGy-cm. Automated exposure control was utilized for the study. A dose lowering technique was utilized adhering to the principles of ALARA. MIP reconstructed images were created and reviewed. CONTRAST: Patient received 119 mL [id number] of IV contrast COMPARISON: No relevant prior studies available. FINDINGS: Right internal carotid artery: No acute findings. Intracranial segment is patent with no significant stenosis. No aneurysm. Right anterior cerebral artery: Unremarkable. No occlusion or significant stenosis. No aneurysm. Right middle cerebral artery: Unremarkable. No occlusion or significant stenosis. No aneurysm. Right posterior cerebral artery: Unremarkable. No occlusion or significant stenosis. No aneurysm. Right vertebral artery: Unremarkable as visualized. Left internal carotid artery: No acute findings. Intracranial segment is patent with no significant stenosis. No aneurysm. Left anterior cerebral artery: Unremarkable. No occlusion or significant stenosis. No aneurysm. Left middle cerebral artery: Unremarkable. No occlusion or significant stenosis. No aneurysm. Left posterior cerebral artery: Unremarkable. No occlusion or significant stenosis. No aneurysm. Left vertebral artery: Unremarkable as visualized. Basilar artery: Unremarkable. No occlusion or significant stenosis. No aneurysm. IMPRESSION: Normal head CTA. Electronically signed by: Arian Price MD 06/30/23 22:00 PM
[2023-06-30] MEDS ORDERED: SODIUM CHLORIDE 0.9% 500 ML IV SCH (22:30)
[2023-06-30] MEDS ORDERED: MAGNESIUM SULFATE / D5W 1 GM/100 ML BAG IV ONE (23:15)
--- NOTE | 2023-06-30 23:31 | History & Physical Report ---
Date of Service June 30, 2023 Assessment & Plan (1) TIA (transient ischemic attack): Plan: Recurrent TIA History old CVA on MRI Possible aspirin failure Hypertension elevated secondary to above hx CAD status post CABG hyperlipidemia on statin Rx YUDY on CPAP DM 2 insulin requiring, reasonable control as of recent hemoglobin A1c of 7.30 January 2023 chronic tremors mood disorder, stable past tobacco abuse OBS Medical telemetry Neurochecks Add Plavix to aspirin for possible aspirin failure for now Continue statin Rx Permissive hypertension until new stroke ruled out MRI brain, TTE for TIA work-up. Neurology consult Re: Recurrent TIA Update hemoglobin A1c and lipid profile Basal bolus insulin, ISS BG goal 1 10-1 40, carb count coverage DVT prophylaxis. Lovenox subcu Full code Patient requesting updates providers. Ms. Liliana Navarrete, contact #[phone]. Text document was generated using [employer] voice recognition software. It may contain grammatical or spelling errors. Kindly contact undersigned for clarification of any documentation item in question. History of Present Illness Chief Complaint: Transient right face, right upper extremity numbness Primary Care Provider: Lavelle Esparza MD History obtained from patient, family, and records. Medical history significant for CAD status post CABG, hypertension, hyperlipidemia, TIA, old lacunar infarct on MRI, YUDY on CPAP, DM 2 insulin requiring, chronic tremors, Gilbert syndrome as per records, mood disorder, past tobacco abuse. Last confinement September 2020 under Orthopedics service for elective left total knee replacement. Patient was watching television today when he experience right sided facial tin gling and right upper extremity tingling numbness. Vague frontal headache symptoms. Patient compliant with home medications. Denies neck pain, chest pain, SOB. SBP noted to be 200s at home which is unusual for him. Patient has history of mini stroke in 07/2019 presenting as transient left upper extremity weakness. CT imaging unremarkable. Patient refused admission and preferred to be discharged from the ER as per hospitalist note. Patient had transient gait instability symptoms last March 2020 which he mentioned to his german teacher on a follow-up visit. Outpatient brain MRI requested by his german teacher was done done last April 2020 and showed mild chronic microvascular ischemic disease with remote subcentimeter lacunar infarct of the right frontal lobe. Patient evaluated by [facility] neurologist outpatient who recommended outpatient monitoring for predisposing arrhythmia. Patient symptoms at home earlier this evening resolved upon arrival at the ER. 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 Allergies Allergy/AdvReac Type Severity Reaction Status Date / Time lisinopril [From Prinivil] Allergy Unknown Reaction Verified 06/30/23 20:18 unknown- pt unaware Sulfa (Sulfonamide AdvReac Intermediate ACHY AND Verified 06/30/23 20:18 Antibiotics) COLD SYMPTOMS sulfadiazine AdvReac Intermediate achy and Verified 06/30/23 20:18 cold symptoms Home Medications Medication Instructions Recorded Confirmed Type propranolol 60 mg capsule,24 60 mg PO DAILY 07/31/19 06/30/23 History hr,extended release escitalopram oxalate 20 mg tablet 20 mg PO QAM 08/24/19 06/30/23 History (Lexapro) krill oil 500 mg capsule 500 mg PO QAM 08/24/19 06/30/23 History Dexcom G6 Security Site Supervisor (blood-glucose #1 ea 08/25/19 04/18/23 Rx meter,continuous) Dexcom G6 Transmitter #1 ea 08/25/19 04/18/23 Rx (blood-glucose transmitter) Dexcom G6 Sensor (blood-glucose #3 ea 08/28/19 04/18/23 Rx sensor) magnesium 250 mg tablet 250 mg PO QAM 11/30/19 06/30/23 History cyanocobalamin (vitamin B-12) 1,000 mcg PO QAM 05/02/20 06/30/23 History 1,000 mcg capsule blood sugar diagnostic (OneTouch #10 ea 08/04/20 04/18/23 History Verio test strips) lancets 30 gauge (OneTouch Delica #100 ea 08/04/20 04/18/23 History Lancets) BD Ultra-Fine Pen Needle 32 #400 ea 08/31/21 04/18/23 Rx gauge x 5/32" (pen needle, diabetic) isosorbide mononitrate 60 mg 60 mg PO QAM 06/18/22 06/30/23 History tablet,extended release 24 hr olmesartan 40 mg tablet 40 mg PO DAILY 06/18/22 06/30/23 History semaglutide 2 mg/dose (8 mg/3 mL) 2 mg (0.75 mL) subcut WK 90 days 01/01/23 06/30/23 Rx subcutaneous pen injector #3 mL metformin 1,000 mg tablet 1,000 mg PO BID #180 tabs 01/31/23 06/30/23 Rx insulin glargine 100 unit/mL 70 - 75 unit subcut QPM 02/12/23 06/30/23 History subcutaneous solution (Lantus U-100 Insulin) empagliflozin 25 mg tablet 25 mg PO QAM 02/13/23 06/30/23 History (Jardiance) insulin syringe-needle U-100 1 mL #100 ea 04/12/23 04/18/23 Rx 29 gauge x 1/2" (BD Insulin Syringe) amlodipine 5 mg tablet 10 mg PO DAILY 06/30/23 06/30/23 History aspirin 81 mg tablet,delayed 81 mg PO DAILY 06/30/23 06/30/23 History release cholecalciferol (vitamin D3) 25 25 - 50 mcg PO DAILY 06/30/23 06/30/23 History mcg (1,000 unit) capsule (Vitamin D3) coenzyme Q10 100 mg capsule 100 mg PO DAILY 06/30/23 06/30/23 History (CoQ-10) pantoprazole 40 mg tablet,delayed 40 mg PO QAM 06/30/23 06/30/23 History release potassium citrate 99 mg capsule 99 mg PO DAILY 06/30/23 06/30/23 History rosuvastatin 20 mg tablet 20 mg PO QAM 06/30/23 06/30/23 History spironolactone 25 mg tablet 12.5 mg PO DAILY 06/30/23 06/30/23 History Past Med/Surg History Medical History Chronic knee pain after total replacement of both knee joints Coronary artery disease S/p 3 vessel CABG 04/2019- follows with [facility] cardio. Diabetes IDDM- glucose elevated recently- follows with endo routinely Dyslipidemia Essential tremor To bilateral hands - R>L GERD (gastroesophageal reflux disease) Well controlled and stable History of anxiety Hypertension Right carpal tunnel syndrome Sleep apnea CPAP Status post placement of implantable loop recorder Transient ischemic attack (TIA) Jul 2019. Seen in ED 07/31/19 for L handed weakness. Negative head CTA for acute intracranial abnormality. Another episode of stroke-like sx prompted german teacher to order brain MRI 04/2020, which did show old lacunar infarct. Referred to neurology, who recommended patient proceed with cardiology's plan to implant loop recorder to assess for artial arrhythmias. Surgical History History of bilateral knee replacement History of colonoscopy History of lithotripsy History of loop recorder placed 05/2020 Dr Rajan to assess for arrhythmia as possible source for TIA/CVA occurring in July and March 2020. Medtr[employer] device. History of lumbar discectomy X3 History of right knee joint replacement 11/25/18: SAB x 1 at L4-L5 + PNB at [facility] S/P triple vessel bypass 04/2019 at [facility] and follows with dr raymond; denies sob with exertion Family History Mother Diabetes Macular degeneration Father Colorectal cancer Other Family history of colon cancer in father Social History Smoking Status: Never smoker Second Hand Exposure: No; Do You Dip or Chew Tobacco: No; Hx Alcohol Use: No Hx Substance Use: No Preferred Language: Maori Communication Ability: Effective Food And Beverage Order Clerk Required: No Beliefs That Will Affect Care: None marital status: Current Living Situation: Spouse current occupation: retired Feels Safe at Home: Yes Assistive Devices: CPAP Review of Systems Review of Systems: As per HPI, all other systems reviewed and negative Physical Exam Physical Exam: GENERAL: Comfortable, pleasant, obese, no respiratory distress SKIN: Normal color, warm HEENT: Alopecia, [place] palpebral conjunctivae, no ptosis, moist buccal mucosa NECK : Supple, short neck, no tenderness CHEST : CTA, no tenderness HEART : RRR, no obvious murmurs ABDOMEN: Some distention, nontender EXTREMITIES : Minimal LE swelling, no LE tenderness, no other conspicuous deformities noted NEUROLOGIC : Coherent, no facial asymmetry, intention tremors, gait and stance not assessed Results & Data Results & Data Vital Signs (Past 12 Hours) Vital Signs Temp Pulse Resp BP Pulse Ox O2 Del Method 06/30/23 21:30 74 21 162/98 H 95 Room Air 06/30/23 21:07 72 30 H 173/79 H 96 Room Air 06/30/23 20:30 77 21 163/90 H 96 Room Air 06/30/23 20:14 72 26 H 165/94 H 93 Room Air 06/30/23 19:24 36.8 C 81 18 205/102 H 96 Room Air Laboratory Results Laboratory Results WBC 5.88 K/ul (4.8-10.8) 06/30/23 19:26 RBC 5.50 M/uL (4.70-6.10) 06/30/23 19:26 Hgb 15.1 g/dl (14.0-18.0) 06/30/23 19:26 Hct 45.3 % (42.0-52.0) 06/30/23 19:26 MCV 82.4 fL (80.0-100.0) 06/30/23 19: MCH 27.5 pg (25.0-34.0) 06/30/23 19: MCHC 33.3 g/dL (32.0-36.0) 06/30/23 19: RDW Std Deviation 43.5 fL (36.4-46.3) 06/30/23 19: RDW Coeff of Esthela 14.6 % (11.5-14.5) H 06/30/23 19: Plt Count 167 K/uL (130-400) 06/30/23: MPV 10.0 fL (9.4-12.4) 06/30/23 19:26 Immature Gran % (Auto) 0.2 % 06/30/23 19: Neut % (Auto) 54.3 % 06/30/23 19:26 Lymph % (Auto) 38.8 % 06/30/23 19:26 [place] % (Auto) 5.3 % 06/30/23 19:26 Eos % (Auto) 0.9 % 06/30/23 19:26 Baso % (Auto) 0.5 % 06/30/23 19:26 Neut # (Auto) 3.20 K/uL (1.40-6.50) 06/30/23 19: Lymph # (Auto) 2.28 K/uL (1.20-3.40) 06/30/23 19:26 [place] # (Auto) 0.31 K/uL (0.11-0.59) 06/30/23 19:26 Eos # (Auto) 0.05 K/uL (0.00-0.50) 06/30/23 19:26 Baso # (Auto) 0.03 K/uL (0.00-0.20) 06/30/23 19:26 Immature Gran # (Auto) 0.01 K/uL (0.01-0.20) 06/30/23 19:26 PT 11.1 Seconds (9.0-12.0) 06/30/23 19:34 INR 1.0 (0.9-1.1) 06/30/23 19:34 APTT 25.7 Seconds (21.0-31.0) 06/30/23 19:34 PTT Ratio 0.9 06/30/23 19:34 Sodium 140 mmol/L (136-145) 06/30/23 19:26 Potassium 3.6 mmol/L (3.5-5.1) 06/30/23 19:26 Chloride 105 mmol/L (98-107) 06/30/23 19:26 Carbon Dioxide 25 mmol/L (21-32) 06/30/23 19:26 Anion Gap 10 (3-11) 06/30/23 19:26 BUN 13 mg/dl (6-23) 06/30/23 19:26 Creatinine 0.73 mg/dl (0.6-1.4) 06/30/23 19:26 Est Cr Clr Drug Dosing 116.5 ml/min 06/30/23 19:26 Est GFR ( Amer) 110.5 ml/min 06/30/23 19:26 Est GFR (Non-Af Amer) 95.3 ml/min 06/30/23 19:26 BUN/Creatinine Ratio 17.8 (10-20) 06/30/23 19:26 Glucose 126 mg/dl (70-99(Fasting)) H 06/30/23 19:26 Calcium 9.2 mg/dl (8.6-10.3) 06/30/23 19:26 Magnesium 1.8 mg/dl (1.7-2.4) 06/30/23 19:26 Total Bilirubin 1.2 mg/dl (0.2-1.0) H 06/30/23 19:26 AST 21 U/L (13-39) 06/30/23 19:26 ALT 19 U/L (7-52) 06/30/23 19:26 Alkaline Phosphatase 63 U/L (34-104) 06/30/23 19:26 Troponin I High Sens 12.3 pg/ml (0-20) 06/30/23 19: Total Protein 6.7 gm/dl (6.0-8.3) 06/30/23 19: Albumin 4.6 gm/dl (3.4-5.0) 06/30/23 19: Globulin 2.1 gm/dl (2.5-4.0) L 06/30/23 19: Albumin/Globulin Ratio 2.2 (0.9-2) H 06/30/23 19:26 Blood Type O Positive 06/30/23 20:01 Antibody Screen NEGATIVE 06/30/23 20:01 Impressions Chest X-Ray 06/30/23 19: XR chest 1V portable HISTORY: neuro deficit, acute stroke suspected COMPARISON: Chest 05/09/2020. FINDINGS: There are low lung volumes. No pneumothorax. No pleural fusions. The heart remains mildly enlarged. There are are poststernotomy changes. No new focal lung consolidations to suggest a pneumonia. No evidence for pulmonary edema. No acute fractures. IMPRESSION: No acute process. ACT 112: Negative or not required by law. Electronically signed by: Peña Samayoa M.D. 06/30/2023 7:[address] 06/30/23 19:26 Exam(s): CT HEAD Without Contrast EXAM: CT Head Without Intravenous Contrast CLINICAL HISTORY: Reason for exam: neuro deficit, acute stroke suspected. TECHNIQUE: Axial computed tomography images of the head/brain without intravenous contrast. CTDI is 38.31 mGy and DLP is 702.46 mGy-cm. Automated exposure control was utilized for the study. A dose lowering technique was utilized adhering to the principles of ALARA. COMPARISON: No relevant prior studies available. FINDINGS: Brain: Unremarkable. No hemorrhage. No significant white matter disease. No edema. Ventricles: Unremarkable. No ventriculomegaly. Bones/joints: Unremarkable. No acute fracture. Soft tissues: Unremarkable. Sinuses: Unremarkable as visualized. No acute sinusitis. Mastoid air cells: Unremarkable as visualized. No mastoid effusion. IMPRESSION: Normal head/brain CT. Electronically signed by: Arian Price MD 06/30/23 21:59 PM Head CTA 06/30/23 19:26 Exam(s): CTA HEAD With Contrast IV Amt: 119 mL [id number] EXAM: CT Angiography Head With Intravenous Contrast CLINICAL HISTORY: Reason for exam: neuro deficit, acute stroke suspected. TECHNIQUE: Axial computed tomographic angiography images of the head with intravenous contrast. CTDI is 71.08 mGy and DLP is 1283.61 mGy-cm. Automated exposure control was utilized for the study. A dose lowering technique was utilized adhering to the principles of ALARA. MIP reconstructed images were created and reviewed. CONTRAST: Patient received 119 mL [id number] of IV contrast COMPARISON: No relevant prior studies available. FINDINGS: Right internal carotid artery: No acute findings. Intracranial segment is patent with no significant stenosis. No aneurysm. Right anterior cerebral artery: Unremarkable. No occlusion or significant stenosis. No aneurysm. Right middle cerebral artery: Unremarkable. No occlusion or significant stenosis. No aneurysm. Right posterior cerebral artery: Unremarkable. No occlusion or significant stenosis. No aneurysm. Right vertebral artery: Unremarkable as visualized. Left internal carotid artery: No acute findings. Intracranial segment is patent with no significant stenosis. No aneurysm. Left anterior cerebral artery: Unremarkable. No occlusion or significant stenosis. No aneurysm. Left middle cerebral artery: Unremarkable. No occlusion or significant stenosis. No aneurysm. Left posterior cerebral artery: Unremarkable. No occlusion or significant stenosis. No aneurysm. Left vertebral artery: Unremarkable as visualized. Basilar artery: Unremarkable. No occlusion or significant stenosis. No aneurysm. IMPRESSION: Normal head CTA. Electronically signed by: Airan Price MD 06/30/23 22:00 PM Neck CTA 06/30/23 19:26 Exam(s): CTA NECK With Contrast IV Amt: 119 mL [id number] EXAM: CT Angiography Neck With Intravenous Contrast CLINICAL HISTORY: Reason for exam: neuro deficit, acute stroke suspected. TECHNIQUE: Routine carotid CT angiography protocol was performed with intravenous contrast. NASCET criteria using the distal ICAs for comparison were used for evaluation of stenoses. CTDI is 71.08 mGy and DLP is 1283.61 mGy-cm. Automated exposure control was utilized for the study. A dose lowering technique was utilized adhering to the principles of ALARA. MIP reconstructed images were created and reviewed. CONTRAST: Patient received 119 mL [id number] of IV contrast COMPARISON: None. FINDINGS: VASCULATURE: Right common carotid artery: Unremarkable. No occlusion or significant stenosis. No dissection. Right internal carotid artery: Unremarkable. Extracranial segment is patent with no occlusion or significant stenosis. No dissection. Right external carotid artery: Unremarkable. No occlusion. Right vertebral artery: Unremarkable. No occlusion or significant stenosis. No dissection. Left common carotid artery: Unremarkable. No occlusion or significant stenosis. No dissection. Left internal carotid artery: Unremarkable. Extracranial segment is patent with no occlusion or significant stenosis. No dissection. Left external carotid artery: Unremarkable. No occlusion. Left vertebral artery: Unremarkable. No occlusion or significant stenosis. No dissection. NECK: Bones/joints: Unremarkable. No acute fracture. Soft tissues: Unremarkable. Lung apices: Clear. CAROTID STENOSIS REFERENCE USING NASCET CRITERIA: % ICA stenosis = (1 - narrowest ICA diameter/diameter of distal cervical ICA) x 100. Mild - <50% stenosis. Moderate - 50-69% stenosis. Severe - 70-94% stenosis. Near occlusion - 95-99% stenosis. Occluded - 100% stenosis. IMPRESSION: Negative CTA neck. Electronically signed by: Arian Price MD 06/30/23 22:00 PM Diagnostic Findings EKG as per my interpretation : Rate 70, NSR, LAD, LSB, LVH, ST depression lateral leads
[2023-06-30] MEDS ORDERED: oxyCODONE HCL IR 5 MG TAB (IMMEDIATE RELEASE) PO PRN (23:39)
[2023-06-30] MEDS ORDERED: PROMETHAZINE HCL 12.5 MG in SODIUM CHLORIDE 0.9% 50 ML IV PRN (23:39)
[2023-06-30] MEDS ORDERED: CLOPIDOGREL BISULFATE 75 MG TAB PO ONE (23:45)
[2023-06-30] MEDS ORDERED: GLUCOSE 10 TAB/TUBE PO PRN (23:45)
[2023-06-30] MEDS ORDERED: GLUCOSE 40% GEL 15 GM TUBE PO PRN (23:45)
[2023-06-30] MEDS ORDERED: DEXTROSE 50% 50 ML SYRINGE IV PRN (23:45)
[2023-06-30] MEDS ORDERED: NSS + 20MEQ KCL 20 MEQ/1,000 ML BAG IV ONE (23:45)
[2023-06-30] MEDS ORDERED: CARBOHYDRATES FOR HYPOGLYCEMIA PO PRN (23:45)
[2023-06-30] MEDS ORDERED: GLUCAGON FOR INJ 1 MG VIAL IM PRN (23:45)
[2023-07-01] MEDS ORDERED: GLUCAGON FOR INJ 1 MG VIAL SQ PRN (00:33)
[2023-07-01] MEDS ORDERED: DEXTROSE 50% 50 ML SYRINGE IV PRN (00:33)
[2023-07-01] MEDS ORDERED: CARBOHYDRATES FOR HYPOGLYCEMIA PO PRN (00:33)
[2023-07-01] MEDS ORDERED: PHARMACIST DISCHARGE MED REC CONSULT PRN (00:33)
[2023-07-01] MEDS ORDERED: ACETAMINOPHEN 325 MG TAB PO PRN (00:33)
[2023-07-01] MEDS ORDERED: GLUCOSE 40% GEL 15 GM TUBE PO PRN (00:33)
[2023-07-01] MEDS ORDERED: GLUCOSE 10 TAB/TUBE PO PRN (00:33)
[2023-07-01] MEDS: INSULIN ASPART PER UNIT CHARGE SC SCH ×3 (01:57→14:12)
--- NOTE | 2023-07-01 02:34 | Magnetic Resonance Report ---
Exam(s): MRI HEAD Without Contrast EXAM: MR Head Without Intravenous Contrast CLINICAL HISTORY: Reason for exam: tia. TECHNIQUE: Magnetic resonance images of the head/brain without intravenous contrast in multiple planes. COMPARISON: Comparison made to prior noncontrast head CT from June 30, 2023. FINDINGS: Brain: Mild nonspecific white matter changes. No mass. No hemorrhage. No acute infarct. The flow voids in the face that are intact. Ventricles: Unremarkable. No ventriculomegaly. Bones/joints: Hyperostosis frontalis interna. Mild bilateral C2-3 facet arthropathy. No acute fracture. Sinuses: Unremarkable as visualized. No acute sinusitis. Mastoid air cells: Unremarkable as visualized. No mastoid effusion. Orbits: Bilateral lens replacements. IMPRESSION: No evidence of acute intracranial pathology. Mild nonspecific white matter changes. Electronically signed by: Chrissy Castillo MD 07/01/23 02:33 AM
[2023-07-01 07:26] LABS: Basophils # (auto) 0.05 K/uL (0.00-0.20); Basophils % (auto) 0.9 %; Eosinophils # (auto) 0.08 K/uL (0.00-0.50); Eosinophils % (auto) 1.4 %; Hematocrit (blood only) 45.2 % (42.0-52.0); Hemoglobin 15.2 g/dl (14.0-18.0); Immature Granulocytes # (auto) 0.01 K/uL (0.01-0.20); Immature Granulocytes % (auto) 0.2 %; Lymphocytes # (auto) 2.44 K/uL (1.20-3.40); Lymphocytes % (auto) 41.7 %; Mean Corpuscular Hemoglobin 27.4 pg (25.0-34.0); Mean Corpuscular Hgb Conc 33.6 g/dL (32.0-36.0); Mean Corpuscular Volume 81.4 fL (80.0-100.0); Mean Platelet Volume 9.7 fL (9.4-12.4); Monocytes % (auto) 6.8 %; Neutrophils # (auto) 2.87 K/uL (1.40-6.50); Platelet Count 168 K/uL (130-400); RDW Coefficient of Variation 14.4 % (11.5-14.5); RDW Standard Deviation 42.7 fL (36.4-46.3); Red Blood Count 5.55 M/uL (4.70-6.10); White Blood Count 5.85 K/ul (4.8-10.8)
[2023-07-01 07:40] LABS: BUN Creatinine Ratio 14.9 (10-20); Calcium 8.8 mg/dl (8.6-10.3); Chol HDL Ratio 3.8 (0-5); Creatinine Clr Calc Pharmacy 114.9 ml/min; Est GFR (African American) 109.8 ml/min; Est GFR (Non-African American) 94.8 ml/min; Potassium 3.3 mmol/L (3.5-5.1)
[2023-07-01] MEDS ORDERED: PROPRANOLOL HCL 60 MG LA CAP PO SCH (09:00)
[2023-07-01] MEDS ORDERED: ASPIRIN 81 MG ECTAB PO SCH (09:00)
[2023-07-01] MEDS ORDERED: ENOXAPARIN INJ 40 MG/0.4 ML SYR SQ SCH (09:00)
[2023-07-01] MEDS ORDERED: LANTUS PER UNIT CHARGE SQ SCH ×2 (09:00→21:00)
[2023-07-01] MEDS ORDERED: ROSUVASTATIN CALCIUM 20 MG TAB PO SCH (09:00)
[2023-07-01] MEDS ORDERED: CYANOCOBALAMIN (B-12) 500 MCG TABLET PO SCH (09:00)
[2023-07-01] MEDS ORDERED: ESCITALOPRAM OXALATE 20 MG TAB PO SCH (09:00)
[2023-07-01] MEDS ORDERED: MAGNESIUM OXIDE 400 MG TAB PO SCH (09:00)
[2023-07-01] MEDS ORDERED: PANTOprazole 40 MG TAB PO SCH (09:00)
--- NOTE | 2023-07-01 12:38 | Electrocardiogram Report ---
Test Reason : Blood Pressure : / mmHG Vent. Rate : 072 BPM Atrial Rate : 072 BPM P-R Int : 138 ms QRS Dur : 116 ms QT Int : 420 ms P-R-T Axes : 046 -05 093 degrees QTc Int : 459 ms Normal sinus rhythm Minimal voltage criteria for LVH, may be normal variant ( ) Nonspecific ST and T wave abnormality Abnormal ECG When compared with ECG of 09-MAY-2020 11:53, Nonspecific T wave abnormality no longer evident in Inferior leads Confirmed by Dale Mcarthur ([id number]) on 07/01/2023 12:38:11 PM Referred By: REFERRED SELF Confirmed By:Dale Mcarthur
--- NOTE | 2023-07-01 13:14 | XCELERA ---
[id number] \\[id number]
--- NOTE | 2023-07-01 13:32 | Neurology Consultation ---
Date of Consultation July 01, 2023 Assessment & Plan (1) TIA (transient ischemic attack): Stroke like symptoms of paresthesia in setting of severely elevated HTN now resolved appears consistent with a transient ischemic attack Recommend continue ASA and statin with addition of clopidogrel for at least 3 weeks Continue daily ASA- recommend Enteric coated Recommend increase rosuvastatin dosage to 40mg PO daily Add daily clopidogrel 75mg PO daily Obtain serum platelet reactivity study one week to confirm response to clopidogrel Continue to monitor/control blood pressure Continue to monitor/control blood glucose Continue CPAP at times of sleep Follow up loop recorder data Recommend increase daily exercise and weight loss Follow up outpatient with adult neurology (2) Hypertensive emergency: Continue to monitor/control blood pressure Telehealth Consultation Telehealth Information Telehealth Information: I performed this visit using a real-time telehealth connection between my location and the patients location ([facility]). After connecting through interactive tele-video, patient was identified by name and date of and/or wristband check.Patient (or authorized healthcare authorization representative) was informed that this was a telemedicine visit and it was being conducted confidentially over secure lines. My office door was closed and no one else was present in the room with me.Patient (or authorized healthcare authorization representative) provided consent to proceed with the visit, expressed an understanding of privacy and security of the telemedicine visit, and gave permission to have a hospital authorization representative in the room in order to assist with the visit and to conduct portions of the visit, as needed. I informed the patient (or authorized healthcare authorization representative) that I reviewed their record and presented the opportunity for them to ask any questions regarding the visit today. The patient agreed to participate. History of Present Illness Reason for Consultation: Possible TIA Requesting Physician: Dr. Chen Attending Physician: Liliana Chen MD History of Present Illness 67 yo male with hx HTN DM CAD Hyperlipidemia and YUDY presented to ER following sudden onset paresthesia of RUE face neck and lips reportedly began while sitting and watching TV. He reports he was watching football but was not excited or upset with the game was just sitting TV. He states he took his blood pressure at onset of symptoms and it was >200 systolic over >100 diastolic. He does not report taking his blood pressure often. He also reports he had a headache at the time as well but fortunately all symptoms resolved by the time he was being evaluated in the ER. He reports a similar event a few years ago affecting his left arm and resulted in weakness such that he could not move his arm for about an hour. He has undergone CT brain without contrast revealing no evidence of hemorrhage. He has undergone CTA head and neck without evidence of large vessel occlusion or significant/flow limiting stenosis. MRI brain without contrast fortunately reveals no evidence of acute ischemic stroke. On televideo examination NIHSS remains =0. He is able to answer all questions and follow commands without difficulty. At this time he denies cephalgia or cervicalgia. Denies chest pain/palpitations or shortness of breath. No reported changes in vision hearing dizziness syncope seizure like activity or paresthesia. Denies recent fevers chills nausea vomiting changes in bowels or bladder. Denies recent medication changes, recent illness or sick contacts, no reported recent travel. 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 He reports less than adequate adherence with CPAP following a recall and receiving a replacement device. He believes the settings need adjusted. He reports an appointment next month July 2023. He reports daily aspirin and rosuvastatin. He is agreeable to an increased dose of rosuvastatin. He is also agreeable to the addition of clopidogrel and has been made aware of need for platelet reactivity testing to confirm the clopidogrel is working for him. He says he feels well enough to go home and is agreeable to follow up with neurology. at bedside reports he was prescribed spironolactone but has not actually started taking the medication. I have explained to them both that spironolactone will help control blood pressure and will defer to primary/hospitalist team. Allergies Allergy/AdvReac Type Severity Reaction Status Date / Time lisinopril [From Prinivil] Allergy Unknown Reaction Verified 06/30/23 20:18 unknown- pt unaware Sulfa (Sulfonamide AdvReac Intermediate ACHY AND Verified 06/30/23 20:18 Antibiotics) COLD SYMPTOMS sulfadiazine AdvReac Intermediate achy and Verified 06/30/23 20:18 cold symptoms Home Medications Medication Instructions Recorded Confirmed Type propranolol 60 mg capsule,24 60 mg PO DAILY 07/31/19 06/30/23 History hr,extended release escitalopram oxalate 20 mg tablet 20 mg PO QAM 08/24/19 06/30/23 History (Lexapro) krill oil 500 mg capsule 500 mg PO QAM 08/24/19 06/30/23 History Dexcom G6 Cath Lab Manager (blood-glucose #1 ea 08/25/19 04/18/23 Rx meter,continuous) Dexcom G6 Transmitter #1 ea 08/25/19 04/18/23 Rx (blood-glucose transmitter) Dexcom G6 Sensor (blood-glucose #3 ea 08/28/19 04/18/23 Rx sensor) magnesium 250 mg tablet 250 mg PO QAM 11/30/19 06/30/23 History cyanocobalamin (vitamin B-12) 1,000 mcg PO QAM 05/02/20 06/30/23 History 1,000 mcg capsule blood sugar diagnostic (OneTouch #10 ea 08/04/20 04/18/23 History Verio test strips) lancets 30 gauge (OneTouch Delica #100 ea 08/04/20 04/18/23 History Lancets) BD Ultra-Fine Pen Needle 32 #400 ea 08/31/21 04/18/23 Rx gauge x 5/32" (pen needle, diabetic) isosorbide mononitrate 60 mg 60 mg PO QAM 06/18/22 06/30/23 History tablet,extended release 24 hr olmesartan 40 mg tablet 40 mg PO DAILY 06/18/22 06/30/23 History semaglutide 2 mg/dose (8 mg/3 mL) 2 mg (0.75 mL) subcut WK 90 days 01/01/23 06/30/23 Rx subcutaneous pen injector #3 mL metformin 1,000 mg tablet 1,000 mg PO BID #180 tabs 01/31/23 06/30/23 Rx insulin glargine 100 unit/mL 70 - 75 unit subcut QPM 02/12/23 06/30/23 History subcutaneous solution (Lantus U-100 Insulin) empagliflozin 25 mg tablet 25 mg PO QAM 02/13/23 06/30/23 History (Jardiance) insulin syringe-needle U-100 1 mL #100 ea 04/12/23 04/18/23 Rx 29 gauge x 1/2" (BD Insulin Syringe) amlodipine 5 mg tablet 10 mg PO DAILY 06/30/23 06/30/23 History aspirin 81 mg tablet,delayed 81 mg PO DAILY 06/30/23 06/30/23 History release cholecalciferol (vitamin D3) 25 25 - 50 mcg PO DAILY 06/30/23 06/30/23 History mcg (1,000 unit) capsule (Vitamin D3) coenzyme Q10 100 mg capsule 100 mg PO DAILY 06/30/23 06/30/23 History (CoQ-10) pantoprazole 40 mg tablet,delayed 40 mg PO QAM 06/30/23 06/30/23 History release potassium citrate 99 mg capsule 99 mg PO DAILY 06/30/23 06/30/23 History rosuvastatin 20 mg tablet 20 mg PO QAM 06/30/23 06/30/23 History spironolactone 25 mg tablet 12.5 mg PO DAILY 06/30/23 06/30/23 History Patient History Medical History Chronic knee pain after total replacement of both knee joints Coronary artery disease S/p 3 vessel CABG 04/2019- follows with [facility] cardio. Diabetes IDDM- glucose elevated recently- follows with endo routinely Dyslipidemia Essential tremor To bilateral hands - R>L GERD (gastroesophageal reflux disease) Well controlled and stable History of anxiety Hypertension Right carpal tunnel syndrome Sleep apnea CPAP Status post placement of implantable loop recorder Transient ischemic attack (TIA) Jul 2019. Seen in ED 07/31/19 for L handed weakness. Negative head CTA for acute intracranial abnormality. Another episode of stroke-like sx prompted international trade manager to order brain MRI 04/2020, which did show old lacunar infarct. Referred to neurology, who recommended patient proceed with cardiology's plan to implant loop recorder to assess for artial arrhythmias. Surgical History History of bilateral knee replacement History of colonoscopy History of lithotripsy History of loop recorder placed 05/2020 Dr Rajan to assess for arrhythmia as possible source for TIA/CVA occurring in July and March 2020. [employer] device. History of lumbar discectomy X3 History of right knee joint replacement 11/25/18: SAB x 1 at L4-L5 + PNB at [facility] S/P triple vessel bypass 04/[address] [facility] and follows with dr raymond; denies sob with exertion Family History Mother Diabetes Macular degeneration Father Colorectal cancer Other Family history of colon cancer in father Social History Smoking Status: Never smoker Second Hand Exposure: No; Do You Dip or Chew Tobacco: No; Hx Alcohol Use: No Hx Substance Use: No Preferred Language: Guinean Communication Ability: Effective Recruitment Assistant Required: No Beliefs That Will Affect Care: None marital status: Current Living Situation: Spouse current occupation: retired Feels Safe at Home: Yes Assistive Devices: CPAP Physical Exam Neurological Examination: Mental Status: Awake and alert. Oriented to person, place, and time. Fluency naming repetition and comprehension appear grossly intact. Affect remains appropriate. CN testing: I: Denies changes in ability to smell II:Reports no changes in visual acuity III/IV/: No evidence of gaze preference, hippus, nystagmus or roving eye movements V: Facial sensation reportedly grossly intact to light touch bilaterally VII: Facial movements appear without evidence of asymmetry VIII: Hearing appears grossly intact to loud voice bilaterally IX/X: Palate appears to elevate symmetrically XI: Shoulder shrug appears symmetric/ grossly intact bilaterally XII: Tongue protrudes midline without evidence of biting Motor exam: Strength appears grossly intact/symmetric in all extremities Sensory: Sensation is reportedly grossly intact throughout Coordination: Finger to nose and heel to aguirre were intact. No apparent evidence of dysmetria or dysdiadochokinesia Reflexes: Deferred Gait: Deferred Results & Data Vital Signs (Past 12 Hours) Vital Signs Pulse Pulse Resp BP Pulse Ox O2 Del Method 07/01/23 12:07 79 16 140/78 95 Room Air 07/01/23 07:17 65 07/01/23 04:00 71 07/01/23 04:00 71 18 130/86 94 Room Air Laboratory Results Abnormal lab results 06/30/23 07/01/23 07/01/23 Range/Units 19:26 07:08 12:57 RDW Coeff of Esthela 14.6 H (11.5-14.5) % Potassium 3.3 L (3.5-5.1) mmol/L Glucose 126 H (70-99(Fasting)) mg/dl POC Glucose 134 H (70-99) mg/dl Total Bilirubin 1.2 H (0.2-1.0) mg/dl Globulin 2.1 L (2.5-4.0) gm/dl Albumin/Globulin Ratio 2.2 H (0.9-2) Triglycerides 257 H (0-150) mg/dl VLDL Cholesterol, Calc 51 H (0-30) mg/dl Diagnostic Findings Chest X-Ray 06/30/23 19:26 XR chest 1V portable HISTORY: neuro deficit, acute stroke suspected COMPARISON: Chest 05/09/2020. FINDINGS: There are low lung volumes. No pneumothorax. No pleural fusions. The heart remains mildly enlarged. There are are poststernotomy changes. No new focal lung consolidations to suggest a pneumonia. No evidence for pulmonary edema. No acute fractures. IMPRESSION: No acute process. ACT 112: Negative or not required by law. Electronically signed by: Peña Samayoa M.D. 06/30/2023 7:[address] 06/30/23 19:26 Exam(s): CT HEAD Without Contrast EXAM: CT Head Without Intravenous Contrast CLINICAL HISTORY: Reason for exam: neuro deficit, acute stroke suspected. TECHNIQUE: Axial computed tomography images of the head/brain without intravenous contrast. CTDI is 38.31 mGy and DLP is 702.46 mGy-cm. Automated exposure control was utilized for the study. A dose lowering technique was utilized adhering to the principles of ALARA. COMPARISON: No relevant prior studies available. FINDINGS: Brain: Unremarkable. No hemorrhage. No significant white matter disease. No edema. Ventricles: Unremarkable. No ventriculomegaly. Bones/joints: Unremarkable. No acute fracture. Soft tissues: Unremarkable. Sinuses: Unremarkable as visualized. No acute sinusitis. Mastoid air cells: Unremarkable as visualized. No mastoid effusion. IMPRESSION: Normal head/brain CT. Electronically signed by: Arian Price MD 06/30/23 21:59 PM Head CTA 06/30/23 19:26 Exam(s): CTA HEAD With Contrast IV Amt: 119 mL [id number] EXAM: CT Angiography Head With Intravenous Contrast CLINICAL HISTORY: Reason for exam: neuro deficit, acute stroke suspected. TECHNIQUE: Axial computed tomographic angiography images of the head with intravenous contrast. CTDI is 71.08 mGy and DLP is 1283.61 mGy-cm. Automated exposure control was utilized for the study. A dose lowering technique was utilized adhering to the principles of ALARA. MIP reconstructed images were created and reviewed. CONTRAST: Patient received 119 mL [id number] of IV contrast COMPARISON: No relevant prior studies available. FINDINGS: Right internal carotid artery: No acute findings. Intracranial segment is patent with no significant stenosis. No aneurysm. Right anterior cerebral artery: Unremarkable. No occlusion or significant stenosis. No aneurysm. Right middle cerebral artery: Unremarkable. No occlusion or significant stenosis. No aneurysm. Right posterior cerebral artery: Unremarkable. No occlusion or significant stenosis. No aneurysm. Right vertebral artery: Unremarkable as visualized. Left internal carotid artery: No acute findings. Intracranial segment is patent with no significant stenosis. No aneurysm. Left anterior cerebral artery: Unremarkable. No occlusion or significant stenosis. No aneurysm. Left middle cerebral artery: Unremarkable. No occlusion or significant stenosis. No aneurysm. Left posterior cerebral artery: Unremarkable. No occlusion or significant stenosis. No aneurysm. Left vertebral artery: Unremarkable as visualized. Basilar artery: Unremarkable. No occlusion or significant stenosis. No aneurysm. IMPRESSION: Normal head CTA. Electronically signed by: Arian Price MD 06/30/23 22:00 PM Neck CTA 06/30/23 19:26 Exam(s): CTA NECK With Contrast IV Amt: 119 mL [id number] EXAM: CT Angiography Neck With Intravenous Contrast CLINICAL HISTORY: Reason for exam: neuro deficit, acute stroke suspected. TECHNIQUE: Routine carotid CT angiography protocol was performed with intravenous contrast. NASCET criteria using the distal ICAs for comparison were used for evaluation of stenoses. CTDI is 71.08 mGy and DLP is 1283.61 mGy-cm. Automated exposure control was utilized for the study. A dose lowering technique was utilized adhering to the principles of ALARA. MIP reconstructed images were created and reviewed. CONTRAST: Patient received 119 mL [id number] of IV contrast COMPARISON: None. FINDINGS: VASCULATURE: Right common carotid artery: Unremarkable. No occlusion or significant stenosis. No dissection. Right internal carotid artery: Unremarkable. Extracranial segment is patent with no occlusion or significant stenosis. No dissection. Right external carotid artery: Unremarkable. No occlusion. Right vertebral artery: Unremarkable. No occlusion or significant stenosis. No dissection. Left common carotid artery: Unremarkable. No occlusion or significant stenosis. No dissection. Left internal carotid artery: Unremarkable. Extracranial segment is patent with no occlusion or significant stenosis. No dissection. Left external carotid artery: Unremarkable. No occlusion. Left vertebral artery: Unremarkable. No occlusion or significant stenosis. No dissection. NECK: Bones/joints: Unremarkable. No acute fracture. Soft tissues: Unremarkable. Lung apices: Clear. CAROTID STENOSIS REFERENCE USING NASCET CRITERIA: % ICA stenosis = (1 - narrowest ICA diameter/diameter of distal cervical ICA) x 100. Mild - <50% stenosis. Moderate - 50-69% stenosis. Severe - 70-94% stenosis. Near occlusion - 95-99% stenosis. Occluded - 100% stenosis. IMPRESSION: Negative CTA neck. Electronically signed by: Arian Price MD 06/30/23 22:00 PM Brain MRI 07/01/23 00:03 Exam(s): MRI HEAD Without Contrast EXAM: MR Head Without Intravenous Contrast CLINICAL HISTORY: Reason for exam: tia. TECHNIQUE: Magnetic resonance images of the head/brain without intravenous contrast in multiple planes. COMPARISON: Comparison made to prior noncontrast head CT from June 30, 2023. FINDINGS: Brain: Mild nonspecific white matter changes. No mass. No hemorrhage. No acute infarct. The flow voids in the face that are intact. Ventricles: Unremarkable. No ventriculomegaly. Bones/joints: Hyperostosis frontalis interna. Mild bilateral C2-3 facet arthropathy. No acute fracture. Sinuses: Unremarkable as visualized. No acute sinusitis. Mastoid air cells: Unremarkable as visualized. No mastoid effusion. Orbits: Bilateral lens replacements. IMPRESSION: No evidence of acute intracranial pathology. Mild nonspecific white matter changes. Electronically signed by: Chrissy Castillo MD 07/01/23 02:33 AM Medications Administered Home Medications Medication Instructions Recorded Confirmed Last Taken propranolol 60 mg capsule,24 60 mg PO DAILY 07/31/19 06/30/23 06/30/23 hr,extended release escitalopram oxalate 20 mg tablet 20 mg PO QAM 08/24/19 06/30/23 06/30/23 (Lexapro) krill oil 500 mg capsule 500 mg PO QAM 08/24/19 06/30/23 06/30/23 Dexcom G6 Cath Lab Manager (blood-glucose #1 ea 08/25/19 04/18/23 02/18/23 meter,continuous) Dexcom G6 Transmitter #1 ea 08/25/19 04/18/23 02/18/23 (blood-glucose transmitter) Dexcom G6 Sensor (blood-glucose #3 ea 08/28/19 04/18/23 02/18/23 sensor) magnesium 250 mg tablet 250 mg PO QAM 11/30/19 06/30/23 06/30/23 cyanocobalamin (vitamin B-12) 1,000 mcg PO QAM 05/02/20 06/30/23 06/30/23 1,000 mcg capsule blood sugar diagnostic (OneTouch #10 ea 08/04/20 04/18/23 02/18/23 Verio test strips) lancets 30 gauge (OneTouch Delica #100 ea 08/04/20 04/18/23 02/18/23 Lancets) BD Ultra-Fine Pen Needle 32 #400 ea 08/31/21 04/18/23 02/18/23 gauge x 5/32" (pen needle, diabetic) isosorbide mononitrate 60 mg 60 mg PO QAM 06/18/22 06/30/23 06/30/23 tablet,extended release 24 hr olmesartan 40 mg tablet 40 mg PO DAILY 06/18/22 06/30/23 06/30/23 semaglutide 2 mg/dose (8 mg/3 mL) 2 mg (0.75 mL) subcut WK 90 days 01/01/23 06/30/23 06/24/23 subcutaneous pen injector #3 mL metformin 1,000 mg tablet 1,000 mg PO BID #180 tabs 01/31/23 06/30/23 06/30/23 insulin glargine 100 unit/mL 70 - 75 unit subcut QPM 02/12/23 06/30/23 06/30/23 subcutaneous solution (Lantus U-100 Insulin) empagliflozin 25 mg tablet 25 mg PO QAM 02/13/23 06/30/23 06/30/23 (Jardiance) insulin syringe-needle U-100 1 mL #100 ea 04/12/23 04/18/23 Unknown 29 gauge x 1/2" (BD Insulin Syringe) amlodipine 5 mg tablet 10 mg PO DAILY 06/30/23 06/30/23 06/30/23 aspirin 81 mg tablet,delayed 81 mg PO DAILY 06/30/23 06/30/23 06/30/23 release cholecalciferol (vitamin D3) 25 25 - 50 mcg PO DAILY 06/30/23 06/30/23 06/30/23 mcg (1,000 unit) capsule (Vitamin D3) coenzyme Q10 100 mg capsule 100 mg PO DAILY 06/30/23 06/30/23 06/30/23 (CoQ-10) pantoprazole 40 mg tablet,delayed 40 mg PO QAM 06/30/23 06/30/23 06/30/23 release potassium citrate 99 mg capsule 99 mg PO DAILY 06/30/23 06/30/23 06/30/23 rosuvastatin 20 mg tablet 20 mg PO QAM 06/30/23 06/30/23 06/30/23 spironolactone 25 mg tablet 12.5 mg PO DAILY 06/30/23 06/30/23 06/30/23 Active Medications Generic Name Dose Route Start Last Admin Trade Name Freq PRN Reason Stop Dose Admin Aspirin 81 mg 07/01/23 09:00 07/01/23 09:28 Aspirin 81 Mg Ectab PO 07/31/23 08:59 81 mg DAILY KEVIN Administration Cyanocobalamin 1,000 mcg 07/01/23 09:00 07/01/23 09:28 Cyanocobalamin (B-12) 500 Mcg Tablet PO 07/31/23 08:59 1,000 mcg QAM [facility] Administration Enoxaparin Sodium 40 mg 07/01/23 09:00 07/01/23 09:29 Enoxaparin Inj 40 Mg/0.4 Ml Syr SQ 07/31/23 08:59 40 mg QAM KEVIN Administration Escitalopram Oxalate 20 mg 07/01/23 09:00 07/01/23 09:29 Escitalopram Oxalate 20 Mg Tab PO 07/31/23 08:59 20 mg QAM KEVIN Administration Potassium Chloride/Sodium Chloride 20 meq in 1,000 mls @ 50 mls/hr 06/30/23 23:45 07/01/23 03:59 Normal Saline W/20 Meq Kcl IV 07/01/23 19:44 50 mls/hr .Q20H ONE Administration Protocol Insulin Aspart 0 units 07/01/23 00:33 07/01/23 09:28 Insulin Aspart Per Unit Charge SC 07/31/23 00:32 1 units ACHS KEVIN Administration Magnesium Oxide 200 mg 07/01/23 09:00 07/01/23 09:29 Magnesium Oxide 400 Mg Tab PO 07/31/23 08:59 200 mg QAM KEVIN Administration Pantoprazole Sodium 40 mg 07/01/23 09:00 07/01/23 09:29 Pantoprazole 40 Mg Tab PO 07/31/23 08:59 40 mg QAM KEVIN Administration Propranolol HCl 60 mg 07/01/23 09:00 07/01/23 09:29 Propranolol Hcl 60 Mg [place] PO 07/31/23 08:59 60 mg DAILY KEVIN Administration Rosuvastatin Calcium 20 mg 07/01/23 09:00 07/01/23 09:29 Rosuvastatin Calcium 20 Mg Tab PO 07/31/23 08:59 20 mg QAM KEVIN Administration
--- NOTE | 2023-07-01 13:56 | Pharmacy Report ---
- Date of Service July 01, 2023 - Pharmacy CVA/TIA Medication Review Medications to Prevent Stroke handout has been added to the patients discharge packet. Antiplatelet(s) * ASA 81 mg + clopidogrel 75 mg x 3 weeks, followed by clopdiogrel 75 mg daily Cholesterol * High intensity statin: rosuvastatin 20 mg daily --> recommended increase to 40 mg DVT Prophylaxis * Enoxaparin SQ Therapeutic Anticoagulation * No history of Afib/Aflutter noted * Type 2 Diabetes * Patient has T2DM and patient is prescribed semaglutide.
[2023-07-01] MEDS ORDERED: STROKE PATIENT DISCHARGE STA (15:54)
[2023-07-02] MEDS ORDERED: CLOPIDOGREL BISULFATE 75 MG TAB PO SCH (09:00)
--- NOTE | 2023-07-02 13:11 | Pharmacy Report ---
Pharmacist Stroke Counseling - Date of Service July 02, 2023 - Scope: Pharmacy has been consulted to provide medication discharge counseling for this patient admitted with transient ischemic attack as per the Pharmacist Discharge Counseling for Stroke Patients Protocol. - Medications on Discharge: Home Medications Medication Instructions Recorded Confirmed propranolol 60 mg capsule,24 60 mg PO DAILY 07/31/19 06/30/23 hr,extended release escitalopram oxalate 20 mg tablet 20 mg PO QAM 08/24/19 06/30/23 (Lexapro) krill oil 500 mg capsule 500 mg PO QAM 08/24/19 06/30/23 magnesium 250 mg tablet 250 mg PO QAM 11/30/19 06/30/23 cyanocobalamin (vitamin B-12) 1,000 mcg PO QAM 05/02/20 06/30/23 1,000 mcg capsule blood sugar diagnostic (AposenseTouch #10 ea 08/04/20 04/18/23 Verio test strips) lancets 30 gauge (OneTouch Delica #100 ea 08/04/20 04/18/23 Lancets) isosorbide mononitrate 60 mg 60 mg PO QAM 06/18/22 06/30/23 tablet,extended release 24 hr olmesartan 40 mg tablet 40 mg PO DAILY 06/18/22 06/30/23 insulin glargine 100 unit/mL 70 - 75 unit subcut QPM 02/12/23 06/30/23 subcutaneous solution (Lantus U-100 Insulin) empagliflozin 25 mg tablet 25 mg PO QAM 02/13/23 06/30/23 (Jardiance) amlodipine 5 mg tablet 10 mg PO DAILY 06/30/23 06/30/23 aspirin 81 mg tablet,delayed 81 mg PO DAILY 06/30/23 06/30/23 release cholecalciferol (vitamin D3) 25 25 - 50 mcg PO DAILY 06/30/23 06/30/23 mcg (1,000 unit) capsule (Vitamin D3) coenzyme Q10 100 mg capsule 100 mg PO DAILY 06/30/23 06/30/23 (CoQ-10) pantoprazole 40 mg tablet,delayed 40 mg PO QAM 06/30/23 06/30/23 release potassium citrate 99 mg capsule 99 mg PO DAILY 06/30/23 06/30/23 spironolactone 25 mg tablet 12.5 mg PO DAILY 06/30/23 06/30/23 New Rx's Medication Instructions Recorded Dexcom G6 Fire Extinguisher Tester (blood-glucose #1 08/25/19 meter,continuous) Dexcom G6 Transmitter #1 08/25/19 (blood-glucose transmitter) Dexcom G6 Sensor (blood-glucose #3 ea 08/28/19 sensor) BD Ultra-Fine Pen Needle 32 #400 ea 08/31/21 gauge x 5/32" (pen needle, diabetic) semaglutide 2 mg/dose (8 mg/3 mL) 2 mg (0.75 mL) subcut WK 90 days 01/01/23 subcutaneous pen injector #3 mL metformin 1,000 mg tablet 1,000 mg PO BID #180 tabs 01/31/23 insulin syringe-needle U-100 1 mL #100 ea 04/12/23 29 gauge x 1/2" (BD Insulin Syringe) aspirin 81 mg tablet,delayed 81 mg PO DAILY #30 tabs 07/01/23 release clopidogrel 75 mg tablet 75 mg PO QAM #30 tabs 07/01/23 rosuvastatin 40 mg tablet 40 mg PO DAILY #30 tabs 07/01/23 - Action: The above medications, specifically ones for stroke treatment/prophylaxis, have been reviewed in detail with the patient via telephone within 72 hours of discharge. This includes indication, common adverse reactions, drug interactions, and medication administration. Medication counseling has been employed using the teach-back method to ensure understanding. - Outcome: The patient demonstrated understanding of the medications. Additional comments: * Patient counseled on proper use and side effects of Plavix. * Patient understands to take both Aspirin and Plavix for 21 days (07/01/23 - 07/22/23). Starting 07/23/23, he will start taking Plavix alone. Thank you for allowing pharmacy to be involved in the care of this patient. Please call [phone] with any additional questions
--- NOTE | 2023-07-03 08:00 | Discharge Summary ---
Discharge Summary Date of Service July 01, 2023 Notes For Next Care Provider Please ensure follow up with Neurology -Per Neurologist recommendations: Please obtain serum platelet reactivity study in one week to confirm response to clopidogrel Medication Changes From Visit Plavix 75mg daily aspirin 81mg daily Increased rosuvastatin to 40mg daily Admission HPI Per Admitting Provider History obtained from patient, family, and records. Medical history significant for CAD status post CABG, hypertension, hyperlipidemia, TIA, old lacunar infarct on MRI, YUDY on CPAP, DM 2 insulin requiring, chronic tremors, Gilbert syndrome as per records, mood disorder, past tobacco abuse. Last confinement September 2020 under Orthopedics service for elective left total knee replacement. Patient was watching television today when he experience right sided facial tingling and right upper extremity tingling numbness. Vague frontal headache symptoms. Patient compliant with home medications. Denies neck pain, chest pain, SOB. SBP noted to be 200s at home which is unusual for him. Patient has history of mini stroke in 07/2019 presenting as transient left upper extremity weakness. CT imaging unremarkable. Patient refused admission and preferred to be discharged from the ER as per hospitalist note. Patient had transient gait instability symptoms last March 2020 which he mentioned to his structural metal fabricator apprentice on a follow-up visit. Outpatient brain MRI requested by his structural metal fabricator apprentice was done done last April 2020 and showed mild chronic microvascular ischemic disease with remote subcentimeter lacunar infarct of the right frontal lobe. Patient evaluated by [facility] neurologist outpatient who recommended outpatient monitoring for predisposing arrhythmia. Patient symptoms at home earlier this evening resolved upon arrival at the ER. 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 Admission Exam Per Admitting Provider GENERAL: Comfortable, pleasant, obese, no respiratory distress SKIN: Normal color, warm HEENT: Alopecia, [place] palpebral conjunctivae, no ptosis, moist buccal mucosa NECK : Supple, short neck, no tenderness CHEST : CTA, no tenderness HEART : RRR, no obvious murmurs ABDOMEN: Some distention, nontender EXTREMITIES : Minimal LE swelling, no LE tenderness, no other conspicuous deformities noted NEUROLOGIC : Coherent, no facial asymmetry, intention tremors, gait and stance not assessed Principal Dx & Hospital Course #1 = Principal Diagnosis (1) TIA (transient ischemic attack): Recurrent TIA Hypertension elevated secondary to above, resolved on discharge hx CAD status post CABG hyperlipidemia on statin Rx YUDY on CPAP DM 2 insulin requiring, reasonable control as of recent hemoglobin A1c of 7.30 January 2023 chronic tremors mood disorder, stable past tobacco abuse Pt was observed on telemetry. Head CT, Head and Neck CTA was unremarkable, Brain MRI unremarkable for acute stroke. Echo with no acute changes, no shunt. EF 55-50%, LVH Pt evaluated by Neurology, recommendations were the following: "Recommend continue ASA and statin with addition of clopidogrel for at least 3 weeks Continue daily ASA- recommend Enteric coated Recommend increase rosuvastatin dosage to 40mg PO daily Add daily clopidogrel 75mg PO daily Obtain serum platelet reactivity study one week to confirm response to cielo pidogrel Continue to monitor/control blood pressure Continue to monitor/control blood glucose Continue CPAP at times of sleep Recommend increase daily exercise and weight loss Follow up outpatient with adult neurology" PCP and neurology follow up recommended after discharge. Per Neurologist recommendations: Please obtain serum platelet reactivity study in one week to confirm response to clopidogrel. Discharge Exam General: Alert, oriented. No acute distress Skin: No noted rashes or bruises Psych: Appropriate mood and affect Neuro: No gross deficits HEENT: NC/AT Chest: Nontender to palpation. CV: RRR, Normal s1, s2. No murmurs appreciated Resp: Breath sounds clear bilaterally, no increased effort of breathing. Abdomen:Soft, nontender, nondistended. Extremities: No edema in lower extremities bilaterally. Updated Medication List Medication Instructions Recorded Confirmed Type propranolol 60 mg capsule,24 60 mg PO DAILY 07/31/19 06/30/23 History hr,extended release escitalopram oxalate 20 mg tablet 20 mg PO QAM 08/24/19 06/30/23 History (Lexapro) krill oil 500 mg capsule 500 mg PO QAM 08/24/19 06/30/23 History Dexcom G6 Automobile Assembly Supervisor (blood-glucose #1 ea 08/25/19 04/18/23 Rx meter,continuous) Dexcom G6 Transmitter #1 ea 08/25/19 04/18/23 Rx (blood-glucose transmitter) Dexcom G6 Sensor (blood-glucose #3 ea 08/28/19 04/18/23 Rx sensor) magnesium 250 mg tablet 250 mg PO QAM 11/30/19 06/30/23 History cyanocobalamin (vitamin B-12) 1,000 mcg PO QAM 05/02/20 06/30/23 History 1,000 mcg capsule blood sugar diagnostic (OneTouch #10 ea 08/04/20 04/18/23 History Verio test strips) lancets 30 gauge (OneTouch Delica #100 ea 08/04/20 04/18/23 History Lancets) BD Ultra-Fine Pen Needle 32 #400 ea 08/31/21 04/18/23 Rx gauge x 5/32" (pen needle, diabetic) isosorbide mononitrate 60 mg 60 mg PO QAM 06/18/22 06/30/23 History tablet,extended release 24 hr olmesartan 40 mg tablet 40 mg PO DAILY 06/18/22 06/30/23 History semaglutide 2 mg/dose (8 mg/3 mL) 2 mg (0.75 mL) subcut WK 90 days 01/01/23 06/30/23 Rx subcutaneous pen injector #3 mL metformin 1,000 mg tablet 1,000 mg PO BID #180 tabs 01/31/23 06/30/23 Rx insulin glargine 100 unit/mL 70 - 75 unit subcut QPM 02/12/23 06/30/23 History subcutaneous solution (Lantus U-100 Insulin) empagliflozin 25 mg tablet 25 mg PO QAM 02/13/23 06/30/23 History (Jardiance) insulin syringe-needle U-100 1 mL #100 ea 04/12/23 04/18/23 Rx 29 gauge x 1/2" (BD Insulin Syringe) amlodipine 5 mg tablet 10 mg PO DAILY 06/30/23 06/30/23 History aspirin 81 mg tablet,delayed 81 mg PO DAILY 06/30/23 06/30/23 History release cholecalciferol (vitamin D3) 25 25 - 50 mcg PO DAILY 06/30/23 06/30/23 History mcg (1,000 unit) capsule (Vitamin D3) coenzyme Q10 100 mg capsule 100 mg PO DAILY 06/30/23 06/30/23 History (CoQ-10) pantoprazole 40 mg tablet,delayed 40 mg PO QAM 06/30/23 06/30/23 History release potassium citrate 99 mg capsule 99 mg PO DAILY 06/30/23 06/30/23 History spironolactone 25 mg tablet 12.5 mg PO DAILY 06/30/23 06/30/23 History aspirin 81 mg tablet,delayed 81 mg PO DAILY #30 tabs 07/01/23 Rx release clopidogrel 75 mg tablet 75 mg PO QAM #30 tabs 07/01/23 Rx rosuvastatin 40 mg tablet 40 mg PO DAILY #30 tabs 07/01/23 Rx Hospital Stay Data Consultations 06/30/23 22:55 ED Decision to Admit Stat 07/01/23 00:33 Consult Neurology Routine Diagnostic Imagining Performed 06/30/23 19:26 CT angio head w con Stat CT angio neck with con Stat CT head/brain wo con Stat 07/01/23 00:03 MR brain wo con Stat Chest X-Ray 06/30/23 19:26 XR chest 1V portable HISTORY: neuro deficit, acute stroke suspected COMPARISON: Chest 05/09/2020. FINDINGS: There are low lung volumes. No pneumothorax. No pleural fusions. The heart remains mildly enlarged. There are are poststernotomy changes. No new focal lung consolidations to suggest a pneumonia. No evidence for pulmonary edema. No acute fractures. IMPRESSION: No acute process. ACT 112: Negative or not required by law. Electronically signed by: Peña Samayoa M.D. 06/30/2023 7:[address] 06/30/23 19:26 Exam(s): CT HEAD Without Contrast EXAM: CT Head Without Intravenous Contrast CLINICAL HISTORY: Reason for exam: neuro deficit, acute stroke suspected. TECHNIQUE: Axial computed tomography images of the head/brain without intravenous contrast. CTDI is 38.31 mGy and DLP is 702.46 mGy-cm. Automated exposure control was utilized for the study. A dose lowering technique was utilized adhering to the principles of ALARA. COMPARISON: No relevant prior studies available. FINDINGS: Brain: Unremarkable. No hemorrhage. No significant white matter disease. No edema. Ventricles: Unremarkable. No ventriculomegaly. Bones/joints: Unremarkable. No acute fracture. Soft tissues: Unremarkable. Sinuses: Unremarkable as visualized. No acute sinusitis. Mastoid air cells: Unremarkable as visualized. No mastoid effusion. IMPRESSION: Normal head/brain CT. Electronically signed by: Arian Price MD 06/30/23 21:59 PM Head CTA 06/30/23 19:26 Exam(s): CTA HEAD With Contrast IV Amt: 119 mL [id number] EXAM: CT Angiography Head With Intravenous Contrast CLINICAL HISTORY: Reason for exam: neuro deficit, acute stroke suspected. TECHNIQUE: Axial computed tomographic angiography images of the head with intravenous contrast. CTDI is 71.08 mGy and DLP is 1283.61 mGy-cm. Automated exposure control was utilized for the study. A dose lowering technique was utilized adhering to the principles of ALARA. MIP reconstructed images were created and reviewed. CONTRAST: Patient received 119 mL [id number] of IV contrast COMPARISON: No relevant prior studies available. FINDINGS: Right internal carotid artery: No acute findings. Intracranial segment is patent with no significant stenosis. No aneurysm. Right anterior cerebral artery: Unremarkable. No occlusion or significant stenosis. No aneurysm. Right middle cerebral artery: Unremarkable. No occlusion or significant stenosis. No aneurysm. Right posterior cerebral artery: Unremarkable. No occlusion or significant stenosis. No aneurysm. Right vertebral artery: Unremarkable as visualized. Left internal carotid artery: No acute findings. Intracranial segment is patent with no significant stenosis. No aneurysm. Left anterior cerebral artery: Unremarkable. No occlusion or significant stenosis. No aneurysm. Left middle cerebral artery: Unremarkable. No occlusion or significant stenosis. No aneurysm. Left posterior cerebral artery: Unremarkable. No occlusion or significant stenosis. No aneurysm. Left vertebral artery: Unremarkable as visualized. Basilar artery: Unremarkable. No occlusion or significant stenosis. No aneurysm. IMPRESSION: Normal head CTA. Electronically signed by: Arian Price MD 06/30/23 22:00 PM Neck CTA 06/30/23 19:26 Exam(s): CTA NECK With Contrast IV Amt: 119 mL [id number] EXAM: CT Angiography Neck With Intravenous Contrast CLINICAL HISTORY: Reason for exam: neuro deficit, acute stroke suspected. TECHNIQUE: Routine carotid CT angiography protocol was performed with intravenous contrast. NASCET criteria using the distal ICAs for comparison were used for evaluation of stenoses. CTDI is 71.08 mGy and DLP is 1283.61 mGy-cm. Automated exposure control was utilized for the study. A dose lowering technique was utilized adhering to the principles of ALARA. MIP reconstructed images were created and reviewed. CONTRAST: Patient received 119 mL [id number] of IV contrast COMPARISON: None. FINDINGS: VASCULATURE: Right common carotid artery: Unremarkable. No occlusion or significant stenosis. No dissection. Right internal carotid artery: Unremarkable. Extracranial segment is patent with no occlusion or significant stenosis. No dissection. Right external carotid artery: Unremarkable. No occlusion. Right vertebral artery: Unremarkable. No occlusion or significant stenosis. No dissection. Left common carotid artery: Unremarkable. No occlusion or significant stenosis. No dissection. Left internal carotid artery: Unremarkable. Extracranial segment is patent with no occlusion or significant stenosis. No dissection. Left external carotid artery: Unremarkable. No occlusion. Left vertebral artery: Unremarkable. No occlusion or significant stenosis. No dissection. NECK: Bones/joints: Unremarkable. No acute fracture. Soft tissues: Unremarkable. Lung apices: Clear. CAROTID STENOSIS REFERENCE USING NASCET CRITERIA: % ICA stenosis = (1 - narrowest ICA diameter/diameter of distal cervical ICA) x 100. Mild - <50% stenosis. Moderate - 50-69% stenosis. Severe - 70-94% stenosis. Near occlusion - 95-99% stenosis. Occluded - 100% stenosis. IMPRESSION: Negative CTA neck. Electronically signed by: Arian Price MD 06/30/23 22:00 PM Brain MRI 07/01/23 00:03 Exam(s): MRI HEAD Without Contrast EXAM: MR Head Without Intravenous Contrast CLINICAL HISTORY: Reason for exam: tia. TECHNIQUE: Magnetic resonance images of the head/brain without intravenous contrast in multiple planes. COMPARISON: Comparison made to prior noncontrast head CT from June 30, 2023. FINDINGS: Brain: Mild nonspecific white matter changes. No mass. No hemorrhage. No acute infarct. The flow voids in the face that are intact. Ventricles: Unremarkable. No ventriculomegaly. Bones/joints: Hyperostosis frontalis interna. Mild bilateral C2-3 facet arthropathy. No acute fracture. Sinuses: Unremarkable as visualized. No acute sinusitis. Mastoid air cells: Unremarkable as visualized. No mastoid effusion. Orbits: Bilateral lens replacements. IMPRESSION: No evidence of acute intracranial pathology. Mild nonspecific white matter changes. Electronically signed by: Chrissy Castillo MD 07/01/23 02:33 AM Discharge Instructions Given to Patient (Per Discharging Provider) Mr. Navarrete, Scot were admitted as you presented with symptoms concerning for a stroke. You were evaluated by Neurology and they determined that you had a transient ischemic attack (TIA) or a "mini-stroke". The Neurologist is recommending that you start taking Plavix 75mg along with a d aily aspirin. They recommended increasing your cholesterol medication rosuvastatin to 40mg. They advise continuing with your CPAP machine and that you exercise to try to lose weight. Please keep close follow up with Neurology and your primary care provider after discharge. Should your symptoms return or worsen, please do not hesitate to come back to the emergency room. It was a pleasure taking care of you during your time here. Total Time Total Time Spent Total Time Spent (In Minutes): > 30 minutes
== END 2023-07-01 16:18 | disposition home or self-care (01) ==
LOC: EDINP 19:21 → ED 19:21 → EDINP 07-01 00:34